=== PATIENT | male | born 1955 | race Caucasian/White ===

== ENCOUNTER 2020-07-21 14:40 | Outpatient (CLI) | payer OTHER, SELFPAY ==
--- NOTE | 2020-07-21 17:13 | P.PCNPFT_ITS ---
PFT Interpretation This is a pulmonary function test with pre and post-bronchodilator spirometry, plethysmography and diffusing capacity. The test was performed and results interpreted in accordance with the 2019 and 2005 ATS/ERS Task Force guidelines respectively using the Global Lung Function Initiative-2012 reference equations. Patient demonstrated good effort and c ooperation. Reproducibility criteria were met. The quality of the pre bronchodilator spirometry maneuver was Grade A and post bronchodilator spirometry maneuver was Grade A. Patient had difficulty with shortness of breath throughout all testing. Only 1 acceptable DLCO and plethysmography trial were completed. Findings: Spirometry: The there is decreased maximal expiratory airflow at all lung volumes with concave expiratory flow tracing. The contour the inspiratory flow tracing is normal. The pre bronchodilator FVC is 2.35 L, 51% predicted. The pre bronchodilator FEV1 is 0.73 L, 21% predicted. The FEV1: FVC ratio is 31%. The post bronchodilator FVC is 2.68 L, representing a 14% increase. The post bronchodilator FEV1 is 0.80 L, representing a 10% increase. Plethysmography: The total lung capacity is 8.63 L, 120% predicted. The functional residual capacity is 7.62 L, 202% predicted. The residual volume is 5.97 L, 252% predicted. Diffusing capacity: The absolute diffusion capacity is 6.4, 23% predicted. Diffusing capacity corrected for alveolar volume is 1.90, 47% predicted. Impression: There is a very severe obstructive abnormality with significant improvement after inhaling a single dose of albuterol. The increase in residual volume is consistent with air trapping from an obstructive abnormality. Hyperinflation is present is demonstrated by the increase in functional residual capacity and is consistent with an obstructive abnormality. The absolute diffusing capacity is severely decreased and remains moderately decreased when corrected for alveolar volume. There are no prior studies for comparison PFT Procedure Performed PFT Procedure Performed Spirometry with Pre/Post Bronchodilator Plethysmography (Lung Vol) Diffusing Cap (DLCO)
== END 2020-07-21 14:41 | disposition home or self-care (01) ==
LOC: ANHPFT 14:42
PROVIDERS: PCP Family Medicine; Visit Provider Family Medicine
DX: J44.9 Chronic obstructive pulmonary disease, unspecified (principal); R94.2 Abnormal results of pulmonary function studies
CPT/HCPCS: 94060; 94726; 94729

== ENCOUNTER 2020-10-30 17:51 | Inpatient (IN) | payer OTHER, SELFPAY ==
[2020-10-30] VITALS (36 sets, daily range): BP systolic 102–143; BP diastolic 77–101; PULSE 80–113; RESP 14–34; TEMP 37.2; O2SAT 80–100
--- NOTE | ~2020-10-30 | XR_ITS ---
XR chest 1V portable 11/01/2020 05:54 Indication: Pneumothorax. Procedure: AP portable chest Comparison: Comparison to multiple prior studies sequentially, with oldest reviewed study dated 10/30. Findings: There is a right apical chest tube. Small right apical pneumothorax medially. There is emph ysema. There are infiltrates of the left mid and bilateral lower lung zones. Heart size normal. There is atherosclerosis. Impression: 1: Right apical chest tube with small residual right apical pneumothorax medially. 2: Patchy bilateral airspace disease, consistent with pneumonia versus edema. Reviewed, dictated and finalized at location A. Impression: 1: Right apical chest tube with small residual right apical pneumothorax medial ly. 2: Patchy bilateral airspace disease, consistent with pneumonia versus edema.
--- NOTE | ~2020-10-30 | XR_ITS ---
EXAMINATION: XR chest 1V portable DATE: 10/31/2020 16:04 INDICATION: Status post bronchoscopy TECHNIQUE: frontal view of the chest was obtained. COMPARISON: Chest CT dated 10/30/2020 FINDINGS: Oval development of a large right pneumothorax with near complete collapse of the right lung. The rig ht upper lobe remains tethered to the right apex likely due to pleural-parenchymal scarring. There is no midline shift or depression of the right hemidiaphragm to suggest tension pneumothorax. Hyperexpa nsion of the left lung with increased peripheral lucency and architectural distortion consistent with severe emphysema. Heart size is normal. No pleural effusion or left-sided pneumothorax. There is gas eous distention of the stomach along with multiple gas-filled loops of bowel in the upper abdomen inc luding a mildly dilated loop of small bowel in the right upper quadrant. IMPRESSION: 1. Large right pneumothorax but without evident tension. Findings were discussed with Vickie Ogden, the nurse caring for the patient, at 4:24 PM. 2. Emphysema. 3. Dilated gas-filled loop of small bowel in the right upper quadrant which could be due to ileus, ob struction or potentially gaseous distention due to bag mask ventilation in the appropriate clinical s etting. Reviewed, dictated and finalized at location A. IMPRESSION: 1. Large right pneumothorax but without evident tension. Findings were discusse d with Vickie Ogden, the nurse caring for the patient, at 4:24 PM. 2. Emphysema. 3. Dilated gas-filled loop of small bowel in the right upper quadrant which cou ld be due to ileus, obstruction or potentially gaseous distention due to bag ma sk ventilation in the appropriate clinical setting.
--- NOTE | ~2020-10-30 | XR_ITS ---
XR chest 1V portable 11/02/2020 14:02 Indication: Pneumothorax follow-up Procedure: AP portable chest Comparison: Comparison to multiple prior studies sequentially, with oldest reviewed study dated 10/31. Findings: There is a right apical chest tube, position unchanged. No pneumothorax identified. There a re emphysematous changes. There are bibasilar infiltrates which may represent a combination of atelec tasis/scarring and/or pneumonia. Small left pleural effusion versus pleural thickening. No acute osse ous abnormality. Impression: 1: Stable bibasilar infiltrates, differential diagnosis includes atelectasis/scarring and/or pneumoni a. 2: Stable position to right apical chest tube. No pneumothorax. 3: Emphysema. Reviewed, dictated and finalized at location A. Impression: 1: Stable bibasilar infiltrates, differential diagnosis includes atelectasis/sc arring and/or pneumonia. 2: Stable position to right apical chest tube. No pneumothorax. 3: Emphysema.
--- NOTE | ~2020-10-30 | XR_ITS ---
EXAMINATION: XR chest-chest tube insert/pos INDICATION: Chest tube insertion TECHNIQUE: Portable AP chest at 1723 hours COMPARISON: 1554 hours FINDINGS: A right-sided chest tube has been inserted. The previously described right pneumothorax is no longer evident. There is severe emphysema. Minimal airspace opacities are present in the lung base s. The heart size is normal. There is no pleural effusion. IMPRESSION: 1. Right-sided chest tube insertion with interval resolution of the previously described right pneumo thorax. 2. Severe emphysema. 3. Bibasilar airspace opacities, consistent with atelectasis versus pneumonia. Reviewed, dictated and finalized at location A. IMPRESSION: 1. Right-sided chest tube insertion with interval resolution of the previously described right pneumothorax. 2. Severe emphysema. 3. Bibasilar airspace opacities, consistent with atelectasis versus pneumonia.
--- NOTE | ~2020-10-30 | XR_ITS ---
EXAMINATION: XR barium swallow DATE: 10/30/2020 23:22 INDICATION: Dysphagia, concern for impacted food bolus TECHNIQUE: 4 cc of thick barium were administered orally via syringe. Fluoroscopy of the hypopharynx and esophagus was performed. Fluoroscopy exposure time was 1.1 minutes. The DAP for this procedure wa s 0.762 Gycm2. COMPARISON: None. FINDINGS: Contrast pools in the vallecula and proximal esophagus. Patient took multiple dry swallows without enhancement of the contrast bolus. Examination was terminated due to overall respiratory dist ress of the patient and concern for aspiration. IMPRESSION: 1. Examination nondiagnostic for assessment of impacted food bolus. Reviewed, dictated and finalized at location A.
--- NOTE | ~2020-10-30 | XR_ITS ---
EXAMINATION: XR chest 1V portable INDICATION: Shortness of breath TECHNIQUE: Portable AP chest at 1807 hours COMPARISON: None available FINDINGS: There is severe emphysema, particularly in the upper lung zones. No acute airspace opacitie s are identified. There is a questionable nodule of the right midlung zone. The cardiomediastinal jerardo houette is normal. The visualized osseous structures are unremarkable. IMPRESSION: 1. Severe emphysema. 2. Nodular opacity of the right midlung zone which could be infectious/inflammatory or malignant. Fol low-up with nonemergent CT of the chest is recommended. Reviewed, dictated and finalized at location A. IMPRESSION: 1. Severe emphysema. 2. Nodular opacity of the right midlung zone which could be infectious/inflamma tory or malignant. Follow-up with nonemergent CT of the chest is recommended.
--- NOTE | ~2020-10-30 | XR_ITS ---
XR chest 1V portable 11/02/2020 05:28 Indication: Right pneumothorax. Dyspnea. Procedure: AP portable chest Comparison: Comparison to multiple prior studies sequentially, with oldest reviewed study dated 10/30. Findings: Stable position of right apical chest tube. No definite pneumothorax identified. Emphysemat ous changes are present with persistent bibasilar infiltrates which may represent pneumonia or edema. Cardiomegaly. Impression: 1: Persistent bilateral infiltrates primarily involving the lung bases. These findings have progresse d since 10/30/2020. Differential diagnosis includes pneumonia and edema. Reviewed, dictated and finalized at location A. Impression: 1: Persistent bilateral infiltrates primarily involving the lung bases. These f indings have progressed since 10/30/2020. Differential diagnosis includes pneumo jaden and edema.
--- NOTE | ~2020-10-30 | CT_ITS ---
EXAMINATION: CT soft tissue neck chest wo EXAM DATE: 10/31/2020 08:14 INDICATION: Respiratory distress, possible impacted food. TECHNIQUE: Spiral CT of the neck and chest was performed without contrast. Axial, coronal and sagit lloyd images of the neck were reviewed. Axial, coronal and sagittal images of the chest were reviewed. Coronal maximum intensity pixel images of chest reviewed. The dose-length product (DLP) for this e xamination was 744.01 mGy-cm. The exposure was tailored according to patient size (auto mA exposure control), and iterative reconstruction (ASIR) was used as additional dose [id number] technique. Ther e is no prior study for comparison. FINDINGS: NECK: There is focal region of esophageal dilation and surrounding esophageal wall edema, could be i mpacted food measuring 2.5 x 2.0 x 3.0 cm. This is at the thoracic inlet level. The thyroid gland is unremarkable. The submandibular and parotid glands are symmetric. There is no cervical lymphaden opathy. There are no masses identified. The airway is unremarkable. Parapharyngeal and pre-glot tic fat planes are preserved. Limited evaluation of cervical vessels on this noncontrast study. T he orbits are unremarkable. Some chronic sphenoid sinus mucoperiosteal thickening and wall thickeni ng. There is cervical spondylosis. CHEST: There is approximately 4 cm opacity in the right middle lobe, appearance consistent with pneu monia. Follow-up to resolution is indicated to exclude cancer. There is severe emphysema, and right-s ided predominant bullous disease. Lungs are hyperinflated. There is debris in the right lower lobe in tralobar bronchus extending into the segmental bronchi. There are no pleural or pericardial effusion s. There is no mediastinal, hilar or axillary lymphadenopathy. There is no pneumothorax. Heart normal in size. There is mild to moderate coronary arterial calcification, arterial sclerosis. Th ere is cholelithiasis. Multiple thoracic mild to moderate compression fractures which appear chronic . IMPRESSION: 1. Esophageal foreign body probably impacted food at the thoracic inlet level. 2. Right lower lobe endobronchial aspiration/debris. 3. Right middle lobe pneumonia. Follow-up to resolution is indicated to exclude cancer. 4. Severe emphysema. Bullous disease. Reviewed, dictated and finalized at location B. IMPRESSION: 1. Esophageal foreign body probably impacted food at the thoracic inlet level. 2. Right lower lobe endobronchial aspiration/debris. 3. Right middle lobe pneumonia. Follow-up to resolution is indicated to exclud e cancer. 4. Severe emphysema. Bullous disease.
--- NOTE | ~2020-10-30 | XR_ITS ---
XR chest 1V portable 11/03/2020 05:35 Indication: Right pneumothorax follow-up Procedure: AP portable chest Comparison: Comparison to multiple prior studies sequentially, with oldest reviewed study dated 10/31. Findings: Stable position to right apical chest tube. Small right pneumothorax identified. Progressio n of bibasilar airspace disease. There is hyperinflation, consistent with emphysema. Heart size esteban l. There is atherosclerosis. No acute osseous abnormality. Impression: 1: Small right pneumothorax with stable position to right apical chest tube. 2: Progression of predominantly bibasilar airspace disease which may represent pneumonia or edema. Reviewed, dictated and finalized at location A. Impression: 1: Small right pneumothorax with stable position to right apical chest tube. 2: Progression of predominantly bibasilar airspace disease which may represent pneumonia or edema.
--- NOTE | ~2020-10-30 | US_ITS ---
EXAMINATION: US venous doppler LE EXAM DATE: 11/01/2020 08:35 INDICATION: Bilateral leg swelling. TECHNIQUE: Multiple grayscale, color flow and Doppler images of the lower extremity deep venous syste ms bilaterally were obtained and reviewed. There is no prior study for comparison. FINDINGS: Right side: The right common femoral, femoral and profunda veins demonstrate normal color flow, respi ratory variation, augmentation and compressibility. Compressibility, color flow confirmed within the right popliteal, posterior tibial, peroneal, and greater saphenous veins. Left side: The left common femoral, femoral and profunda veins demonstrate normal color flow, respira tory variation, augmentation and compressibility. Compressibility, color flow confirmed within the l eft popliteal, posterior tibial, peroneal, and greater saphenous veins. IMPRESSION: 1. No lower extremity deep venous thrombosis bilaterally. Reviewed, dictated and finalized at location B.
--- NOTE | 2020-10-30 17:53 | ECG_ITS ---
Measurements Intervals [place] Rate: 95 P: 81 [place]: 163 QRS: -62 QRSD: 97 T: 95 QT: 335 QTc: 421 Interpretive Statements SINUS RHYTH FREQUENT ATRIAL PREMATURE COMPLEXES POSSIBLE LEFT ATRIAL ENLARGEMENT INCOMPLETE RIGHT BUNDLE BRANCH BLOCK INFERIOR INFARCT, AGE INDETERMINATE BORDERLINE ST-T WAVE ABNORMALITY- ANTEROLAT/HIGH LAT LEADS BASELINE ARTIFACT- I, III, AVR, AVL, V6 ABNORMAL ECG Electronically Signed On 10-30-2020 20:45:14 CDT by Gordon Rosado D.O.
[2020-10-30] MEDS: FUROSEMIDE INJ 100 MG/10 ML VIAL 80 MG IV PUSH (17:58)
[2020-10-30] MEDS: NITROGLYCERIN OINTMENT 1 INCH DOSE TRANSDERM (17:58)
[2020-10-30 18:20] LABS: Basophils Absolute Auto 0.1 K/mm3 (0.0-0.1); Basophils Percent Auto 0.5 % (0.2-1.2); Eosinophils Percent Auto 0.4 % (0-4.4); Hematocrit 48.8 % (42.0-52.0); Hemoglobin 16.2 g/dL (14.0-18.0); Immature Granulocyte Absolute 0.03 K/mm3 (0.00-0.031); Immature Granulocyte Percent A 0.3 % (0-0.5); Lymphocytes Absolute Auto 1.59 K/mm3 (0.9-3.2); Lymphocytes Percent Auto 17.3 % (18.3-44.2); Mean Corpuscular HGB Conc 33.2 g/dl (32-36); Mean Corpuscular Hemoglobin 34.2 pg (26-34); Mean Platelet Volume 8.9 fl (7.4-10.4); Monocytes Percent Auto 10.3 % (2.6-8.5); Neutrophils Absolute Auto 6.6 K/mm3 (1.3-6.7); Neutrophils Percent Auto 71.2 % (45.5-73.1); Platelet Count Result 288 k/mm3 (150-375); Red Blood Count 4.74 M/mm3 (4.6-6.20); Red Cell Distribution Width 13.7 % (11.5-14.5); White Blood Count 9.2 K/mm3 (4.5-10.0)
[2020-10-30 18:29] LABS: Prothrombin Time 12.8 Seconds (11.1-14.7)
[2020-10-30 18:30] LABS: Anion Gap 8 mmol/L (8-16); Blood Urea Nitrogen 26 mg/dL (9-20); Calcium 9.4 mg/dL (8.4-10.2); Carbon Dioxide 25 mmol/L (22-30); Chloride 102 mmol/L (98-107); Estimated CRCL calculation 70 ml/min; Estimated Glomerular Filt Rate > 60; Glucose 123 mg/dL (65-110); Partial Thromboplastin Time 27.5 SECONDS (22.3-36.8); Sodium 135 mmol/L (137-145)
[2020-10-30 18:41] LABS: NT Pro B Type Natriuretic Pept 1290 pg/mL (5-100); Troponin I < 0.012 ng/mL (0.000-0.034)
--- NOTE | 2020-10-30 19:07 | PC.NURSE ---
Patient's blood pressure 106/86, nitro patch removed per EDFarideh Martinez
--- NOTE | 2020-10-30 19:26 | ED.SOB ---
HPI - SOB/Dyspnea General Chief Complaint: Shortness of Breath/Dyspnea Stated Complaint: RESPIRATORY FAILURE History of Present Illness HPI Narrative: Patient is a 65-year-old male with known history of COPD who presents ER in severe respiratory distress. Patient foaming of the mouth and found to be hypoxic for EMS. They attempted to give an inline nebulizer treatment in route. Patient reports symptoms were sudden onset. No history of heart failure. He has had edema building up in his legs for a long time. Denies recent history of orthopnea. Patient cannot describe any alleviating factors at this time. Related Data Home Medications Medication Instructions Recorded Confirmed aspirin 325 mg PO DAILY 03/01/19 06/07/20 Allergies Allergy/AdvReac Type Severity Reaction Status Date / Time No Known Allergies Allergy Verified 10/30/20 17:59 Review of Systems Review of Systems: All systems reviewed & are unremarkable except as noted in HPI and below Constitutional: Constitutional: Denies chills, Denies fever(s) and Denies weakness Cardiovascular: Cardiovascular: Denies chest pain and Denies radiating jaw, neck or arm pain Respiratory: Respiratory: Reports chest congestion, Denies cough, Reports dyspnea and Denies wheezing Gastrointestinal: Gastrointestinal: Denies abdominal pain, Denies nausea and Denies vomiting PMFSH Past Medical History Medical History Adenomatous colon polyp COPD (chronic obstructive pulmonary disease) History of TIA (transient ischemic attack) HTN (hypertension) Intention tremor Occlusion of left internal carotid artery PUD (peptic ulcer disease) TIA (transient ischemic attack) 2013 Surgical History Surgical History History of tonsillectomy Family History Family History Other Carcinoma of colon Hypertension Social History Social History Smoking packs per day: 1 Smoking cigarettes per day: 20.0 Years smoked: 45 Smoking pack-years: 45.00 Smoking status: Current every day smoker Tobacco type: cigarettes Alcohol intake: current Substance use: never Substance use type: does not use Gender identity (if verbalized by the patient): Male Exam Narrative: Exam Narrative: GENERAL: Ill-appearing, well-nourished, and in severe distress. HEAD: Normocephalic, atraumatic. EYES: PERRL and EOMI. ENT: Mucous membranes moist. White foam coming from mouth. CHEST: Rales bilaterally. Severe respiratory distress. HEART: Tachycardic and regular. Normal peripheral pulses. ABDOMEN: Soft, nontender, nondistended. EXTREMITIES: Normal range of motion. 2+ edema. SKIN: Warm, dry, no rash. NEURO: Alert and oriented x3. PSYCH: Normal mood and affect. Course Course Emergency Course: Admit to hospitalist service. Much more comfortable on BiPAP. Patient continues to have foaming discomfort when he is attempted to be weaned off of BiPAP. Patient reports he is eating some pork steak when symptoms began and feels like he is having trouble swallowing. He is gone for a x-ray with barium to evaluate for swallowing but this was nondiagnostic as patient was in respiratory distress after being laid down could not tolerate it. As recommend by radiology he has a repeat exam tomorrow for further evaluation if it is still an issue. Vital Signs Vital signs: Vital Signs Pulse Oximetry 80 L 10/30/20 17:50 Temperature 98.9 F 10/30/20 17:53 Pulse Rate 88 10/30/20 23:22 Respiratory Rate 21 H 10/30/20 23:22 Blood Pressure 125/77 10/30/20 21:34 Pulse Oximetry 100 10/30/20 23:22 MDM - SOB/Dyspnea Lab Data Result diagrams: 10/30/20 18:12 10/30/20 18:12 Labs: Lab Results 10/30/20 10/30/20 10/30/20 Range/Units 18:
--- NOTE | 2020-10-30 19:56 | PC.NURSE ---
Dr Downs at bedside. Patient awake, oriented. Per Dr Downs, OK to have trial without bipap. Start on 10 liters NC. Respiratory called to assist
--- NOTE | 2020-10-30 20:21 | PM.IMHP ---
H&P: HPI History of Present Illness Date/Time: 10/30/20 20:21 Chief Complaint: shortness of breath Narrative: This is a 65-year-old male with past medical history significant for severe chronic obstructive pulmonary disease/emphysema, hypertension, peptic ulcer disease, he smokes 1 pack a day of cigarettes. he presented to the emergency room after he had an episode of choking with food he became severely distress and EMS was called there was no loss of consciousness patient was able to release the foreign body on its own however this triggered a severe respiratory distress with severe shortness of breath. Patient was rushed to the emergency room via EMS upon arrival to emergency room patient had foaming at the mouth require BiPAP on Lasix IV push. At the time of my visit patient was on BiPAP and he denied any issues at that moment wanted of of BiPAP. prior to these events patient is states that has been having worsening bilateral lower extremity edema now ongoing for several months at least a month his says he has been able to lay flat in the bed. Denies any chest pain denies changes in sputum quality he has a productive cough mainly in the morning upon awakening with production of scanty amount of phlegm. He denies any fevers rigors chills nausea vomiting diarrhea PND orthopnea. CHEST X-RAY WAS SIGNIFICANT FOR EMPHYSEMA AND A LUNG NODULE. A BNP WAS 1290. Review of Systems Review of Systems: Narrative: SHORTNESS OF BREATH BILATERAL LOWER EXTREMITY SWELLING Constitutional: Constitutional: Denies chills, Denies fever(s), Denies lethargy, Denies malaise and Denies weakness Eyes: Eyes: Denies change in vision ENT: Denies dysphagia, Denies nasal congestion, Denies nasal discharge, Denies odynophagia and Denies sore throat Cardiovascular: Cardiovascular: Denies irregular heart rhythm, Reports leg edema, Denies lightheadedness, Denies radiating jaw, neck or arm pain, Denies palpitations, Denies dyspnea, Denies dyspnea on exertion, Denies orthopnea and Denies paroxysmal nocturnal dyspnea Respiratory: Respiratory: Denies change in phlegm color, Reports cough and Reports dyspnea Gastrointestinal: Gastrointestinal: Denies abdominal pain, Denies dyspepsia, Denies diarrhea, Denies nausea and Denies vomiting Genitourinary: Genitourinary: Reports no additional male genitourinary complaints Musculoskeletal: Musculoskeletal: Reports no additional musculoskeletal complaints Integumentary/Breasts: Skin/Breast: Reports system reviewed and no additional complaints, except as docu Neurologic: Reports system reviewed and no additional complaints, except as documented Psychiatric: Psychiatric: Reports no additional psychiatric complaints Endocrine: Endocrine: Reports no additional endocrine complaints Hematologic/Lymphatic: Hematologic/Lymphatic: Reports no additional hematologic/lymphatic complaints Allergic/Immunologic: Allergic/Immunologic: Reports no additional allergic/immunologic complaints [facility] Past Medical History Medical History Adenomatous colon polyp COPD (chronic obstructive pulmonary disease) History of TIA (transient ischemic attack) HTN (hypertension) Intention tremor Occlusion of left internal carotid artery PUD (peptic ulcer disease) TIA (transient ischemic attack) 2013 Surgical History Surgical History History of tonsillectomy Family History Family History Other Carcinoma of colon Hypertension Social History Social History Smoking packs per day: 1 Smoking cigarettes per day: 20.0 Years smoked: 45 Smoking pack-years: 45.00 Smoking status: Current every day smoker Tobacco type: cigarettes Alcohol intake: current Substance use: never Substance use type: does not use Gender
--- NOTE | 2020-10-30 20:39 | PC.NURSE ---
Pt coughing and having more secretions. Dr Riggs at bedside. O2 97% on 10 liters high flow nasal cannula. Called Respiratory to restart Bipap. Per Dr Riggs, patient has failed trial being off bipap.
--- NOTE | 2020-10-30 21:35 | PC.NURSE ---
Pt called out stating patient feeling like he was choking. Bipap paused. Pt suctioned orally. Reported relief. O2 saturation 99%
[2020-10-30] MEDS: hydrALAZINE HCL 50 MG TABLET PO (22:25)
--- NOTE | 2020-10-30 22:30 | PC.NURSE ---
Pt coughing, froth restarted after taking PO hydralazine. Dr Riggs at bedside. Bipap restarted. SpO2 97%
--- NOTE | 2020-10-30 23:11 | PC.NURSE ---
Pt off floor for barium swallow. Respiratory with patient to study
[2020-10-31] VITALS (29 sets, daily range): BP systolic 114–148; BP diastolic 57–101; PULSE 82–138; RESP 12–31; TEMP 36.2–37.5; O2SAT 89–100; BMI 19.8
[2020-10-31] MEDS: FUROSEMIDE INJ 40 MG/4 ML VIAL IV PUSH ×2 (01:06→21:24)
--- NOTE | 2020-10-31 01:11 | PC.NURSE ---
SBAR faxed to IMU department. Report called at [phone] by GUY Ornelas. All questions answered and plan of care reviewed. Patient to go to IMU room 212.
--- NOTE | 2020-10-31 01:12 | ADMGEN ---
This patient, Chano Dubose, was admitted to IMU Room 212-01 at 0007 from the Emergency Department. Patient/family oriented to hospital policies and general routines including ID bracelet, bed and alarms, visiting hours, pain management, procedures, bathroom and other care routines, personal items, smoking policy, room service/diet, and visiting hours. Information on how to activate the Rapid Response Team has been discussed. Patient/Family are encouraged to report perceived risks to care and to ask questions if they do not understand what they are told or what they should do.
--- NOTE | 2020-10-31 01:12 | PC.NURSE ---
Patient arrived to the floor on continuous Bipap 16/8 Rate of 10 50% FiO2.
[2020-10-31 01:17] LABS: Alveolar/Arterial O2 Gradient 153.8 mmHg; Base Excess ABG -0.8 mEq/l (+/-2.0); Carboxyhemoglobin 1.4 % THb (0-2.0); Fractional Inspired Oxygen 50 %; HCO3 ABG 23.4 mEq/l (22.0-26.0); Methemoglobin ABG 0.3 %THb (0-1.5); Oxygen Content ABG 21.8 %vol (16.0-22.0); Oxygen Saturation ABG 99.1 % (95.0-100.0); Oxyhemoglobin 96.8 % THb (90.0-100.0); PCO2 ABG 37.7 mmHg (35.0-45.0); PO2 ABG 160.3 mmHg (80.0-100.0); PO2 FiO2 Ratio Arterial Blood 3.21 %; Reduced Hemoglobin 1.5 %THb (0-5.0); Total Hemoglobin 15.8 g/dL (12.0-18.0); pH ABG 7.411 (7.350-7.450)
[2020-10-31 01:18] LABS: Device NON-INVASIVE VENT; Modified Allen's Test Pass; Site Drawn RIGHT RADIAL
[2020-10-31 01:20] LABS: Non-Invasive Expiratory Pressure 8 CMH2O; Non-Invasive Inspiratory Pressure 16 CMH2O; Non-Invasive Vent Rate 10 /MIN
--- NOTE | 2020-10-31 02:09 | PC.NURSE ---
Addendum entered by Yasmin Escobar RN 10/31/20 02:23: Patient states he still feels like there is more pork steak stuck in his airway. MD Dr. Downs made aware of event. Original Note: Called into patients room at 0150 patient anxious and gargling on copious amounts of frothy white secretions. patient insistent I remove the bipap. While removing the bipap, patient coughed up a piece of pork steak the size of a quarter. Bipap removed. Patient stated he aspirated some of his pork steak this evening before coming to the ED.
[2020-10-31 02:47] LABS: Troponin I 0.027 ng/mL (0.000-0.034)
--- NOTE | 2020-10-31 08:00 | PM.CNPUL ---
Assessment and Plan Assessment and plan (1) Aspiration of food: Code(s): T17.920A - Food in respiratory tract, part unspecified causing asphyxiation, initial encounter Status: Acute Assessment and Plan: Patient with a history of COPD was in his usual state of health when he choked on food developing respiratory distress afterwards. Patient has an esophageal obstruction and also debris in his right lower lobe. The plan is to perform an emergent EGD per the GI team followed by a bronchoscopy by myself to assess the airways for aspirated food. Currently patient is in no respiratory distress as long as he applies frequent Yankauer suctioning to his mouth. Prior to this choking event he had no evidence of a COPD exacerbation. After the bronchoscopy I will initiate albuterol and ipratroprium nebulizers. At this time I do not think he needs inhaled or systemic steroids. There is evidence of focal infiltrate in the right middle lobe and the patient is currently on Zosyn. Patient states that he does not use oxygen at home and currently he is on 3 L nasal cannula with saturations of 92%. Goal saturation 90-94. Discussed with hospitalist, GI, and endoscopy coordinator. Will follow with you. History of Present Illness History of Present Illness Consult date: 10/31/20 Chief complaint: acute respiratory failure, chf exacerbation Narrative: this is a new Pulmonary consultation for COPD with hypoxemic respiratory failure 65-year-old male with a history of hypertension, TIA, peptic ulcer disease, left internal carotid artery occlusion in 06/26/2012 with tobacco use and GOLD grade 4 group B COPD with FEV1 of 0.73 L (21% predicted), airtrapping (RV 252% predicted), hyperinflation (FRC 202% predicted), DLCO (23% predicted) was in his usual state of health until 10/30 at 17:00he ate pork steak and choked on this. Prior to this event he denies fever, chills, rigors, phlegm production, hemoptysis, chest pain or change in his chronic dyspnea on exertion. With the choking patient had hypoxemia, dizziness and respiratory distress. EMS was called and he was foaming at the mouth in respiratory distress. He arrived to the emergency department and was placed on BiPAP and given Lasix. Patient's white blood cell count was 9.2, Serum bicarbonate was 25, troponins were negative x2, BNP was 12 90, an ABG on BiPAP was 7.141/38/160 on BiPAP 16/8 and 50%. chest x-ray demonstrated severe emphysema, nodular opacity in the right mid lung zone. Patient was admitted to the floor on BiPAP. 10/[address] scan of the neck and chest demonstrating esophageal dilatation and possible impacted food at the thoracic inlet. No lymphadenopathy. There is severe panlobular emphysema, 4 cm opacity right middle lobe, debris in RLL. Upon entering the room the patient was in respiratory distress foaming at the mouth with gurgling respiratory sounds. I immediately suctioned his mouth with a Yankauer and applied constant Yankauer suctioning for 5 minutes and he improved. He was on 10 L nasal cannula oxygen with saturations 96. I was able to wean him down to 3 L nasal cannula oxygen with saturations 92%. Baseline: Patient smoked a pack and half of cigarettes from age 15 to current for total of 75 pack years. 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 Patient denies same blasting, vaping, illicit drug use. Patient states that his dyspnea on exertion is at 2 blocks. He has had no hospitalizations or exacerbations in the last year. DATA: EXAMINATION: CT soft tissue neck chest wo EXAM DATE: 10/31/2020 08:14 INDICATION: Respiratory distress, possible impacted food. TECHNIQUE: Spiral CT of the neck and chest was performed without contrast. Axial, coronal and sagittal images of the neck were reviewed. Axial, coronal and sagittal images of the chest were reviewed. Co
--- NOTE | 2020-10-31 09:29 | PC.NURSE ---
Spoke with patients , Fe at 0925. Patients stated that patient had copious amounts of frothy/ foaming secretions initially after patient aspirated his pork-steak at home. states that patient has also had a significant increase in lower extremity edema in the last month that is new.
--- NOTE | 2020-10-31 11:32 | WPDANESEPPF ---
Anes - Initial Pre Proc Eval Procedure: Operation Date: 10/31/20 13:00 Proposed Procedures p Esophagogastroduodenoscopy - Bobby Mcdowell MD s Flexible Bronchoscopy - Gustavo Polk MD Date/Time: 10/31/20 11:32 Surgeon: Jaguar Downs MD Pre Op Diagnosis: acute respiratory failure, chf exacerbation Patient Data Age: 65 Gender: M Height: 1.8 m Weight: 64.5 kg Last Vital Signs Temp 37.1 C 10/31/20 08:00 Pulse 106 H 10/31/20 08:00 Resp 30 H 10/31/20 08:00 BP 147/87 H 10/31/20 08:00 Pulse Ox 92 10/31/20 08:00 Allergies Allergy/AdvReac Type Severity Reaction Status Date / Time No Known Allergies Allergy Verified 10/30/20 17:59 Home Medications Medication Instructions Recorded Confirmed Type aspirin 325 mg PO DAILY 03/01/19 10/31/20 History amlodipine 5 mg tablet See Rx Instructions .ROUTE 06/07/20 10/31/20 Rx .COMPLEX #90 tablet hydralazine 50 mg tablet See Rx Instructions .ROUTE 06/07/20 10/31/20 Rx .COMPLEX #270 tablet metoprolol succinate 50 mg See Rx Instructions .ROUTE 06/07/20 10/31/20 Rx tablet,extended release 24 hr .COMPLEX #90 tablet albuterol sulfate 90 mcg/actuation 2 inh INHALATION Q4H PRN #8.5 g 07/25/20 10/31/20 Rx aerosol inhaler losartan 100 mg tablet 100 mg PO DAILY #90 tablet 09/05/20 10/31/20 Rx fluticasone furoate 200 1 inh INHALATION DAILY #90 ea 09/20/20 10/31/20 Rx mcg-vilanterol 25 mcg/dose inhalation powder Laboratory Tests 10/30/20 10/30/20 10/30/20 18:12 18:12 18:12 WBC 9.2 K/mm3 K/mm3 (4.5-10.0) RBC 4.74 M/mm3 M/mm3 (4.6-6.20) Hgb 16.2 g/dL g/dL (14.0-18.0) Hct 48.8 % % (42.0-52.0) MCV 103.0 fl H fl (80-100) MCH 34.2 pg H pg (26-34) MCHC 33.2 g/dl g/dl (32-36) RDW 13.7 % % (11.5-14.5) Plt Count 288 k/mm3 k/mm3 (150-375) MPV 8.9 fl fl (7.4-10.4) Immature Gran % (Auto) 0.3 % % (0-0.5) Neut % (Auto) 71.2 % % (45.5-73.1) Lymph % (Auto) 17.3 % L % (18.3-44.2) [place] % (Auto) 10.3 % H % (2.6-8.5) Eos % (Auto) 0.4 % % (0-4.4) Baso % (Auto) 0.5 % % (0.2-1.2) Lymph # (Auto) 1.59 K/mm3 K/mm3 (0.9-3.2) [place] # (Auto) 1.0 K/mm3 H K/mm3 (0.1-0.6) Eos # (Auto) 0.0 K/mm3 K/mm3 (0-0.3) Baso # (Auto) 0.1 K/mm3 K/mm3 (0.0-0.1) Abs Immat Gran (auto) 0.03 K/mm3 K/mm3 (0.00-0.031) Absolute Neuts (auto) 6.6 K/mm3 K/mm3 (1.3-6.7) Absolute Nucleated RBC 0.0 K/mm3 K/mm3 (0.0-0.012) Nucleated RBC % 0.0 % % (0.0-0.2) PT 12.8 Seconds Seconds (11.1-14.7) INR 1.0 APTT 27.5 SECONDS SECONDS (22.3-36.8) Puncture Site ABG pH ABG pCO2 ABG pO2 ABG PO2/FiO2 Ratio ABG HCO3 ABG O2 Saturation ABG O2 Content ABG Base Excess A-a Gradient Oxyhemoglobin Carboxyhemoglobin Methemoglobin Reduced Hemoglobin Total Hemoglobin O2 Delivery Device O2 Liters/Min Vent Rate FiO2 Expiratory Pressure Inspiratory Pressure Sodium 135 mmol/L L mmol/L (137-145) Potassium 5.0 mmol/L mmol/L (3.4-5.0) Chloride 102 mmol/L mmol/L (98-107) Carbon Dioxide 25 mmol/L mmol/L (22-30) Anion Gap 8 mmol/L mmol/L (8-16) BUN 26 mg/dL H mg/dL (9-20) Creatinine 0.90 mg/dL mg/dL (0.7-1.3) Estim Creat Clear Calc 70 ml/min ml/min Estimated GFR > 60 (59 - ) Glucose 123 mg/dL H mg/dL (65-110) Calcium 9.4 mg/dL mg/dL (8.4-10.2) Troponin I < 0.012 ng/mL ng/mL (0.000-0.034) NT-Pro-B Natriuret Pep
[2020-10-31] MEDS: LACTATED RINGERS 1,000 ML 150 ML IV CONT ×2 (12:07→15:04)
--- NOTE | 2020-10-31 13:20 | WPDGICN ---
Assessment and Plan Assessment and plan (1) Dysphagia: Code(s): R13.10 - Dysphagia, unspecified Status: Acute Assessment and Plan: he will have EGD this morning with removal of foreign body. I explained to him that removing the foreign body can be difficult. Frequently we can advance it into the stomach. Often we need to remove it piece meal by repeatedly inserting the endoscope. if there is a stricture which is very likely we may or may not dilated depending on how much inflammation we see . Doing that also can result in perforation or bleeding. (2) COPD (chronic obstructive pulmonary disease): Qualifiers: COPD type: unspecified COPD Qualified Code(s): J44.9 - Chronic obstructive pulmonary disease, unspecified Code(s): J44.9 - Chronic obstructive pulmonary disease, unspecified Status: Acute Assessment and Plan: he will be intubated prior to the procedure for safety to avoid aspiration. The patient and his family understand that because of his severe COPD he may not be able to get extubated immediately and could be respiratory dependent for a while. Dr. Polk plans to do a bronchoscopy immediately after our EGD. GI Consult Note Consult date/time: 10/31/20 13:20 HPI: Chano Dubose is a 65 year old male Who is known to have severe COPD hypertension and nicotine abuse. He was admitted thru the emergency room because he was eating a piece of pork steak and seem to choke on it. He also states that he could not swallow after that, and has been unable to swallow even his own saliva since that. He could not breathe at 1st . he apparently was able to cough some upper has been short of breath since then and was brought to emergency room. He has been placed on BiPAP. a CT scan of the chest was done. I reviewed it this morning with Dr. Polk and it seems to show a foreign body in the esophagus. He denies having had difficulty swallowing in the past. He denies chronic heartburn. He has lost about 20 lb in last year or 2 Review of Systems Review of Systems: All systems reviewed & are unremarkable except as noted in HPI and below PMFSH Past Medical History Medical History Adenomatous colon polyp COPD (chronic obstructive pulmonary disease) History of TIA (transient ischemic attack) HTN (hypertension) Intention tremor Occlusion of left internal carotid artery PUD (peptic ulcer disease) TIA (transient ischemic attack) 2013 Surgical History Surgical History History of tonsillectomy Family History Family History Other Carcinoma of colon Hypertension Social History Social History Smoking packs per day: 1 Smoking cigarettes per day: 20.0 Years smoked: 45 Smoking pack-years: 45.00 Smoking status: Current every day smoker Tobacco type: cigarettes Alcohol intake: current Drinks per week: 28 Substance use: never Substance use type: does not use Gender identity (if verbalized by the patient): Male Spiritual care concerns: No Meds Home Medications and Allergies Home Medications Medication Instructions Recorded Confirmed Type aspirin 325 mg PO DAILY 03/01/19 10/31/20 History amlodipine 5 mg tablet See Rx Instructions .ROUTE 06/07/20 10/31/20 Rx .COMPLEX #90 tablet hydralazine 50 mg tablet See Rx Instructions .ROUTE 06/07/20 10/31/20 Rx .COMPLEX #270 tablet metoprolol succinate 50 mg See Rx Instructions .ROUTE 06/07/20 10/31/20 Rx tablet,extended release 24 hr .COMPLEX #90 tablet albuterol sulfate 90 mcg/actuation 2 inh INHALATION Q4H PRN #8.5 g 07/25/20 10/31/20 Rx aerosol inhaler losartan 100 mg tablet 100 mg PO DAILY #90 tablet 09/05/20 10/31/20 Rx fluticasone furoate 200 1 inh INHALATION DAILY #90 ea 09/05
--- NOTE | 2020-10-31 14:06 | PM.IMPN ---
Progress Note: A&P Assessment and Plan (1) Acute respiratory failure: Code(s): J96.00 - Acute respiratory failure, unspecified whether with hypoxia or hypercapnia Status: Acute Assessment and Plan: he was on 3 L of oxygen which was down from 10 L of oxygen in the morning. Continue suctioning of his secretions from the pharynx and marked cavity definitely improved his respiratory status. Wean oxygen if tolerated. He will be intubated for endoscopy and bronchoscopy later today. There will be attempt to extubate him after the procedure but if he cannot be then he will go to ICU for close monitoring and remain on mechanical ventilation. Continous pulse ox will be maintained. (2) Acute exacerbation of CHF (congestive heart failure): Code(s): I50.9 - Heart failure, unspecified Status: Acute Assessment and Plan: 2D echo and bilateral lower extremity Doppler ultrasound is pending. strict intake output record and daily weight will be maintained. Continue to monitor renal parameters and electrolytes. Continue diuresis with IV Lasix. (3) HTN (hypertension): Qualifiers: Hypertension type: unspecified Qualified Code(s): I10 - Essential (primary) hypertension Code(s): I10 - Essential (primary) hypertension Status: Acute Assessment and Plan: Continue his home regimen of metoprolol, losartan, hydralazine and Amlodipine. (4) History of TIA (transient ischemic attack): Code(s): Z86.73 - Personal history of transient ischemic attack (TIA), and cerebral infarction without residual deficits Status: Acute Assessment and Plan: Continue on Aspirin. He is currently not on statin. (5) Occlusion of left internal carotid artery: Code(s): I65.22 - Occlusion and stenosis of left carotid artery Status: Acute Assessment and Plan: CONTINUE TO MONITOR (6) Aspiration of food: Code(s): T17.920A - Food in respiratory tract, part unspecified causing asphyxiation, initial encounter Status: Acute Assessment and Plan: Continue Zosyn empirically for aspiration pneumonia /pneumonitis. Bronchoscopies will be performed later today by Pulmonary. Will follow BAL culture. (7) Esophageal obstruction: Code(s): K22.2 - Esophageal obstruction Status: Acute Assessment and Plan: CT neck and chest showed obstruction of the esophagus. Gastroenterology service has evaluated the patient and their recommendations appreciated. He will have endoscopy to try to remove the foreign body later today. (8) COPD (chronic obstructive pulmonary disease): Qualifiers: COPD type: unspecified COPD Qualified Code(s): J44.9 - Chronic obstructive pulmonary disease, unspecified Code(s): J44.9 - Chronic obstructive pulmonary disease, unspecified Status: Acute Assessment and Plan: Continue bronchodilator. No evidence of COPD exacerbation. Steroids not indicated for pulmonary perspective. Subjective Date/time seen: 10/31/20 14:06 I was called by the nurse at the bedside for worsening respiratory status with respiratory distress. Was on 10 L of oxygen at that time. Estate CT of the neck and chest showed completely occluded esophagus with right lower lobe and right middle lobe pneumonia. Pulmonary service has evaluated the patient at the bedside. He was started on continue suction of the upper pharyngeal area with improvement in his respiratory status. He was down to 3 L of oxygen had the bedside. Endoscopy and bronchoscopy has been planned by GI and Pulmonary service later today. He will be intubated for the procedure. Review of Systems Review of Systems: Narrative: A comprehensive review of systems has been reviewed with the patient and most of the symptoms are negative except the one's mentioned above in HPI. Exam Narrative: Exam Km
--- NOTE | 2020-10-31 14:12 | SUR.PHASEII ---
Updated family member waiting in dept on patient status. Patient still in procedure at this time.
--- NOTE | 2020-10-31 14:39 | SUR.OPER ---
1438 Dr. Mcdowell reported off to Dr. Rios. Dr. Mcdowell out of room. 1439 Time out performed with Dr. Rios present prior to bronchoscopy start.
[2020-10-31] MEDS: LACTATED RINGERS 1,000 ML 100 ML IV CONT (15:02)
--- NOTE | 2020-10-31 16:25 | SUR.PHASEII ---
Called Dr. Polk to inform him of result of chest Xray of large right pneumothorax with collapse of most of the right lung which was called to this RN by Dr. Patiño, Radiologist.
--- NOTE | 2020-10-31 16:45 | SUR.PHASEII ---
Dr. Polk at bedside at [facility]. Discussing results with patient/patient's family.
--- NOTE | 2020-10-31 17:12 | PC.NURSE ---
patient still in GI lab but going to ICU-8 post procedure. Report given to Ana TOVAR.
--- NOTE | 2020-10-31 17:30 | PM.EVENT ---
Event Note Event Note Event Note: Called from PACU with patient having large right pneumothorax by CXR and immediately went to PACU. On arrival to PACU patient awake and alert and in no respiratory distress, vitals stable. He was on BiPAP by anesthesia for low saturations without my knowledge. I removed BiPAP and placed on 15 L NRB mask and saturations were at 100%. I consulted general surgery suction roller and Dr. Victor returned my call and he then placed chest tube in PACU. Repeat CXR with chest tube in place and re-expansion of right lung. Patient remained in no distress and weaned FIO2. Discussed with hospitalist and informed swedish masseuse.
--- NOTE | 2020-10-31 17:37 | SUR.PHASEII ---
Dr. Victor arrived in Endoscopy with chest tube placement kit. Dr. Victor and Dr. Polk discussed placement with patient and his . Consent for placement of right sided chest tube was obtained from patient's . Placement of right sided chest tube began at approximately 1700 and ended at approximately 1730. 2mL of 2% Lidocaine was injected at the right chest tube insertion site by Dr. Victor during the procedure. A STAT portable chest Xray was obtained post right sided chest tube insertion.
[2020-10-31] MEDS: HYDROcodone/acetaminophen (*CRX) 5-325 MG TABLET 1 TAB PO ×2 (18:41→23:03)
[2020-10-31] MEDS: hydrALAZINE HCL 50 MG TABLET PO (18:41)
[2020-11-01] VITALS (19 sets, daily range): BP systolic 93–149; BP diastolic 66–95; PULSE 69–105; RESP 12–26; TEMP 36.3–36.5; O2SAT 92–100
[2020-11-01] MEDS: HYDROcodone/acetaminophen (*CRX) 5-325 MG TABLET 1 TAB PO ×3 (05:07→21:08)
--- NOTE | 2020-11-01 06:00 | ECHO_ITS ---
Patient Info Name: Chano Dubose Age: 65 years : 1955 Gender: Male Ht: 71 in Wt: 150 lbs BSA: 1.84 m2 HR: 96 bpm BP: 133 / 83 mmHg Heart Rhythm: Atrial Fibrillation Technical Quality: Fair Exam Date: 11/01/2020 1:51 PM Exam Location: [facility] Pulmonary Exam Room: ICU8 Patient Status: Inpatient Admit Date: 10/31/2020 Staff Ordering Physician: Eliezer Riggs MD Sensor Specialist: Fe Castro RDCS Attending Provider: Jaguar Downs MD Referring Physician: Oneil TURNER; Exam Type: CA echo doppler color flow Study Info Indications - CHF Complete two-dimensional, color flow and Doppler transthoracic echocardiogram is performed. LIMITED VIEWS. Summary 1. Complete two-dimensional, color flow and Doppler transthoracic echocardiogram is performed. 2. Left ventricular size and systolic function are normal with no regional wall motion abnormalities with an estimated ejection fraction of 65-70%. Moderate LVH is present. Diastolic function is indeterminate. 3. Right ventricular chamber dimension is moderately enlarged with normal systolic function. 4. Right atrial chamber dimension is moderately enlarged. 5. Left atrial chamber dimension is mildly enlarged. 6. There is mild tricuspid valve regurgitation. 7. Moderate pulmonary hypertension, estimated pulmonary arterial systolic pressure is 60 mmHg. 8. Atrial fibrillation. Left Ventricle Left ventricular chamber dimension is normal. Left ventricular systolic function is normal, estimated at 65-70%. There is moderately increased left ventricular wall thickness. Left ventricular septal wall motion is normal. The left ventricular diastolic function is indeterminate. Left ventricular size and systolic function are normal with no regional wall motion abnormalities with an estimated ejection fraction of 65-70%. Moderate LVH is present. Diastolic function is indeterminate. Left ventricular chamber size, wall thickness, systolic and diastolic function are normal with no regional wall motion abnormalities with an estimated ejection fraction of Empty. Right Ventricle Right ventricular chamber dimension is moderately enlarged with normal systolic function. Right ventricular systolic function is normal. Left Atria Left atrial chamber dimension is mildly enlarged. Right Atria Right atrial chamber dimension is moderately enlarged. Aortic Valve The aortic valve is trileaflet. There is no aortic valve sclerosis. There is no aortic valve stenosis. There is no aortic valve regurgitation. Pulmonic Valve The pulmonic valve is normal. There is no pulmonic valve stenosis. There is no pulmonic regurgitation. Mitral Valve The mitral valve has normal leaflets. There is no mitral valve stenosis. There is no mitral valve regurgitation. Tricuspid Valve The tricuspid valve leaflets are normal. There is no significant tricuspid valve stenosis. There is mild tricuspid valve regurgitation. Moderate pulmonary hypertension, estimated pulmonary arterial systolic pressure is 60 mmHg. Pericardium/Pleural The pericardium appears normal. There is no pericardial effusion. Inferior Vena Cava Normal inferior vena cava with >50% collapse upon inspiration consistent with Empty right atrial pressure, 10 mmHg. Aorta The aortic root size at the sinus of Valsalva is normal. The prox ascending aorta size is normal. Left Ventricular Outflow Tract
[2020-11-01 06:53] LABS: Alanine Aminotransferase 21 U/L (4-50); Albumin Level 3.4 g/dL (3.5-5.1); Alkaline Phosphatase 66 U/L (38-126); Anion Gap 7 mmol/L (8-16); Aspartate Amino Transferase 36 U/L (17-59); Bilirubin,Total 1.1 mg/dL (0.2-1.3); Blood Urea Nitrogen 21 mg/dL (9-20); Calcium 9.2 mg/dL (8.4-10.2); Carbon Dioxide 32 mmol/L (22-30); Chloride 97 mmol/L (98-107); Estimated CRCL calculation 69 ml/min; Estimated Glomerular Filt Rate > 60; Glucose 104 mg/dL (65-110); Potassium 3.9 mmol/L (3.4-5.0); Sodium 136 mmol/L (137-145)
--- NOTE | 2020-11-01 08:36 | PM.PNPUL ---
Progress Note: A&P Assessment and Plan (1) Aspiration of food: Code(s): T17.920A - Food in respiratory tract, part unspecified causing asphyxiation, initial encounter Status: Acute Assessment and Plan: 10/31 Patient with a history of COPD was in his usual state of health when he choked on food developing respiratory distress afterwards. Patient has an esophageal obstruction and also debris in his right lower lobe. The plan is to perform an emergent EGD per the GI team followed by a bronchoscopy by myself to assess the airways for aspirated food. Currently patient is in no respiratory distress as long as he applies frequent Yankauer suctioning to his mouth. Prior to this choking event he had no evidence of a COPD exacerbation. After the bronchoscopy I will initiate albuterol and ipratroprium nebulizers. At this time I do not think he needs inhaled or systemic steroids. There is evidence of focal infiltrate in the right middle lobe and the patient is currently on Zosyn. Patient states that he does not use oxygen at home and currently he is on 3 L nasal cannula with saturations of 92%. Goal saturation 90-94. Discussed with hospitalist, GI, and endoscopy coordinator. Later in day intubated (difficult per anesthesia) and had EGD with removal and advancement of esophageal food obstruction and then bronchoscopy with aspiration of secretions RLL and left lung without any evidence of foreign body in airway. Extuated and hypoxia and placed on BiPAP in recovery without my knowledge and CXR then with large right pneumothorax. Small bore CT placed by surgery with reexpansion of right lung and transferred to ICU on 6 L NC. 11/01 No evidence of foreign body by bronchoscopy, suctioned secretions. Washing with few Epithelial cells, moderate white blood cells, mixed bacterial shari. On zosyn for possible aspiration pneumonia. Afebrile. No evidence of COPD exacerbation, will place on albuterol and ipratroprium nebs. Right pneumothorax identified post procedure. Etiology includes procedural, BiPAP use, positive pressure ventilation from procedure. CT oin place with small medial apical pneumo today on 25 cm suction. Surgery managing. Continued air leak today. Spoke to senior advocate and patient's on speaker phone and updated patient and . Will follow with you Subjective Date/time seen: 11/01/20 08:36 Interval history: 10/31 This is a new Pulmonary consultation for COPD with hypoxemic respiratory failure 65-year-old male with a history of hypertension, TIA, peptic ulcer disease, left internal carotid artery occlusion in 06/26/2012 with tobacco use and GOLD grade 4 group B COPD with FEV1 of 0.73 L (21% predicted), airtrapping (RV 252% predicted), hyperinflation (FRC 202% predicted), DLCO (23% predicted) was in his usual state of health until 10/30 at 17:00he ate pork steak and choked on this. Prior to this event he denies fever, chills, rigors, phlegm production, hemoptysis, chest pain or change in his chronic dyspnea on exertion. With the choking patient had hypoxemia, dizziness and respiratory distress. EMS was called and he was foaming at the mouth in respiratory distress. He arrived to the emergency department and was placed on BiPAP and given Lasix. Patient's white blood cell count was 9.2, Serum bicarbonate was 25, troponins were negative x2, BNP was 12 90, an ABG on BiPAP was 7.141/38/160 on BiPAP 16/8 and 50%. chest x-ray demonstrated severe emphysema, nodular opacity in the right mid lung zone. Patient was admitted to the floor on BiPAP. Baseline: Patient smoked a pack and half of cigarettes from age 15 to current for total of 75 pack years. 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 Patient denies same blasting, vaping, illicit drug use. Patient states that his dyspnea on exertion is at 2 blocks. He has had no hospitalizations or exacerbations in the last year. 10/31 Patient had
--- NOTE | 2020-11-01 08:49 | WPDANESPN ---
Anes - Prog Note Post-Op Date/Time: 11/01/20 08:49 Cardiovascular status: normal Respiratory status: normal Airway patency: baseline Mental status: baseline Post-Op hydration status: normal Vital Signs: Last Vital Signs Temp 36.3 C L 11/01/20 04:00 Pulse 95 11/01/20 06:00 Resp 26 H 11/01/20 06:00 BP 119/82 11/01/20 06:00 Pulse Ox 93 11/01/20 06:00 Pain Score (VAS): 0 I/O: Intake & Output 10/31/20 11/01/20 11/01/20 23:59 07:59 15:59 Intake Total 400 250 Output Total 1275 Balance 400 -1025 Laboratory Tests 10/30/20 18:12 11/01/20 06:14 11/01/20 06:14 Sodium 136 L Potassium 3.9 Chloride 97 L Carbon Dioxide 32 H Anion Gap 7 L BUN 21 H Creatinine 0.80 Estim Creat Clear Calc 69 Estimated GFR > 60 Glucose 104 Calcium 9.2 Total Bilirubin 1.1 AST 36 ALT 21 Alkaline Phosphatase 66 Total Protein 6.0 L Albumin 3.4 L Microbiology 10/31/20 15:16 Bronchial Washings Subcarinal Respiratory Culture - Preliminary Post-procedural complaints: none Patient Feedback: Patient satisfied with anesthetic care.
[2020-11-01] MEDS: FUROSEMIDE INJ 40 MG/4 ML VIAL IV PUSH (08:54)
[2020-11-01] MEDS: LOSARTAN POTASSIUM 100 MG TABLET PO (08:54)
[2020-11-01] MEDS: amLODIPine BESYLATE 5 MG TABLET BY MOUTH (08:54)
[2020-11-01] MEDS: ENOXAPARIN 40 MG/0.4 ML SYRINGE SUB-Q (08:54)
[2020-11-01] MEDS: METOPROLOL SUCCINATE EXT REL 50 MG TABCR BY MOUTH (08:54)
[2020-11-01] MEDS: hydrALAZINE HCL 50 MG TABLET PO ×2 (08:54→15:27)
--- NOTE | 2020-11-01 09:32 | WPDCNINT ---
Assessment and Plan Assessment and plan (1) Pneumothorax on right: Code(s): J93.9 - Pneumothorax, unspecified Status: Acute Assessment and Plan: spontaneous pneumothorax on the right. Status post chest tube placement persistent air leak while on -25 suction continue chest tube management at this time may need surgical intervention if does not resolve conservative management (2) Acute respiratory failure: Code(s): J96.00 - Acute respiratory failure, unspecified whether with hypoxia or hypercapnia Status: Acute Assessment and Plan: patient was on BiPAP earlier but now improved and currently saturating on nasal cannula with no respiratory distress bronchodilators for COPD (3) Esophageal obstruction: Code(s): K22.2 - Esophageal obstruction Status: Acute Assessment and Plan: status post EGD and removal (4) Aspiration of food: Code(s): T17.920A - Food in respiratory tract, part unspecified causing asphyxiation, initial encounter Status: Acute Assessment and Plan: consult speech for swallow evaluation status post bronchoscopy in which large amount of secretions were removed (5) Gastritis: Code(s): K29.70 - Gastritis, unspecified, without bleeding Status: Acute Assessment and Plan: PPI (6) Aspiration pneumonia: Code(s): J69.0 - Pneumonitis due to inhalation of food and vomit Status: Acute Assessment and Plan: continue Zosyn (7) COPD exacerbation: Code(s): J44.1 - Chronic obstructive pulmonary disease with (acute) exacerbation Status: Acute Assessment and Plan: bronchodilators (8) Acute exacerbation of CHF (congestive heart failure): Code(s): I50.9 - Heart failure, unspecified Status: Acute Assessment and Plan: BNP elevated on presentation and patient was given Lasix echocardiogram pending hold further Lasix as CT did not show any significant pulmonary edema (9) HTN (hypertension): Qualifiers: Hypertension type: unspecified Qualified Code(s): I10 - Essential (primary) hypertension Code(s): I10 - Essential (primary) hypertension Status: Acute Assessment and Plan: continue metoprolol losartan and Norvasc Additional Plan DVT prophylaxis - Lovenox Stress ulcer prophylaxis - PPI Nutrition - swallow eval Code Status - Full Code Air Analyst Consult Note Consult date: 11/01/20 Time Seen: 08:30 HPI: Chano Dubose is a 65 year old male with past medical history significant for severe chronic obstructive pulmonary disease/emphysema, hypertension, peptic ulcer disease, smokes 1 pack a day of cigarettes presented to the emergency room on after he had an episode of choking with food he became severely distress and EMS was called. no loss of consciousness or arrest. patient was in respiratory distress. in ER patient was placed on BiPAP and given Lasix CHEST X-RAY WAS SIGNIFICANT FOR EMPHYSEMA AND A LUNG NODULE. A BNP WAS 1290. CT scan of the neck and chest demonstrating esophageal dilatation and possible impacted food at the thoracic inlet. No lymphadenopathy. There is severe panlobular emphysema, 4 cm opacity right middle lobe, debris in RLL. GI and Pulmonary was consulted. patient was taken to OR and had EGD and bronchoscopy done under general anesthesia. with EEG food was removed in pieces and rest of the food was pushed down to the stomach. patient also had gastritis. with bronchoscope secretions were suctioned from right side of the lung. post procedure patient extubated and placed on BiPAP. repeat chest x-ray showed draw showed right pneumothorax. general surgery was consulted and a right chest tube was placed emergently. Repeat chest x-ray showed re-expansion of the lung. patient was then admitted to ICU for further evaluation management with chest tube to suction. Patient at this time feels better
[2020-11-01] MEDS: PANTOPRAZOLE 40 MG TABLET PO (10:53)
--- NOTE | 2020-11-01 12:00 | PCSTNOTE ---
Bedside swallow evaluation completed. Please see ST inpatient evaluation for details and recommendations.
--- NOTE | 2020-11-01 12:53 | PCDIET ---
ICU Rounding Note: Diet has just advanced to regular, per SUPPORT ARCHITECT recommendation. Bowel Motility: No documented BM as of yet. Labs Reviewed: BUN (21), Na (136), Alb (3.4) Meds Noted: [place], Albuterol, Norvasc, Apresoline, Cozaar, Toprol XL, Protonix, Zosyn Additional Notes: No documented skin breakdown. Following daily in ICU rounds. Assessing/reassessing every 3 days.
--- NOTE | 2020-11-01 13:35 | WPDGIPROGNO ---
Progress Note: A&P Assessment and Plan (1) Aspiration pneumonia: Code(s): J69.0 - Pneumonitis due to inhalation of food and vomit Status: Acute Assessment and Plan: bronchoscopy was negative for any foreign body but there were extensive secretions on the right side removed by Dr. Polk. He did well with except that he required a chest tube because of a pneumothorax. (2) Esophageal obstruction: Code(s): K22.2 - Esophageal obstruction Status: Acute Assessment and Plan: He is having no difficulty swallowing now. I told that he needs to always chew thoroughly. He does not have an actual stricture. He simply swallowed too large of a bolus which got stuck above the aortic arch. Subjective Date/time seen: 11/01/20 13:35 he states that he is able to swallow without pain. I was planning to advance in to full liquid diet but he actually has [place] fries and a burger in front of him and states that he is doing well with that. He promised he will stay away from [facility] from now on. His main complaint today is that he feels that he needs to urinate every five or 10 minutes and wonders if he needs a Rodrigues catheter Review of Systems Review of Systems: All systems reviewed & are unremarkable except as noted in HPI and below Exam Const: General: cooperative, comfortable and alert GI: Inspection: normal to inspection GI Palp: No abdominal tenderness and Yes Soft to palpation Auscultation: normal bowel sounds Objective Data Vital Signs Vital Signs: Vital Signs - 24 hr 10/31/20 15:30 10/31/20 15:40 10/31/20 15:50 Temperature 36.3 C L Pulse Rate 108 H 105 H 97 Respiratory Rate 22 H 19 28 H Blood Pressure 136/101 H 131/92 H 114/79 Pulse Oximetry 91 92 95 10/31/20 15:52 10/31/20 16:00 10/31/20 16:10 Temperature Pulse Rate 107 H 96 101 H Respiratory Rate 19 25 H 19 Blood Pressure 115/82 134/90 Pulse Oximetry 92 95 93 10/31/20 16:20 10/31/20 16:30 10/31/20 17:00 Temperature Pulse Rate 86 84 99 Respiratory Rate 25 H 21 H 20 Blood Pressure 121/84 127/81 124/91 H Pulse Oximetry 100 100 99 10/31/20 17:30 10/31/20 17:34 10/31/20 17:40 Temperature Pulse Rate 93 96 Respiratory Rate 26 H 19 18 Blood Pressure 132/86 136/86 Pulse Oximetry 100 100 98 10/31/20 18:55 10/31/20 20:00 10/31/20 22:00 Temperature 36.9 C Pulse Rate 92 82 Respiratory Rate 17 12 Blood Pressure 122/83 126/85 Pulse Oximetry 92 95 96 11/01/20 00:00 11/01/20 02:00 11/01/20 04:00 Temperature 36.5 C 36.3 C L Pulse Rate 86 82 69 Respiratory Rate 23 H 20 12 Blood Pressure 132/85 144/79 H 149/89 H Pulse Oximetry 98 96 100 11/01/20 06:00 11/01/20 08:00 11/01/20 08:54 Temperature Pulse Rate 95 90 105 H Respiratory Rate 26 H 23 H Blood Pressure 119/82 128/85 Pulse Oximetry 93 96 11/01/20 10:00 11/01/20 10:50 11/01/20 12:00 Temperature Pulse Rate 93 105 H 102 H Respiratory Rate 22 H 25 H 22 H Blood Pressure 128/85 132/95 H Pulse Oximetry 96 95 92 Intake/Output Intake/Output: Intake & Output 10/29/20 10/30/20 10/31/20 11/01/20 23:59 23:59 23:59 23:59 Intake Total 450 300 Output Total [address] [facility] -550 -975 Meds/Results Medications: Active Medications Generic Name Dose Route Start Last Admin Trade Name Freq PRN Reason Stop Dose Admin Hydrocodone Bitart/Acetaminophen 1 tab 10/30/20 19:35 11/01/20 10:53 Hydrocodone/Acetaminophen (*Crx) 5-325 Mg Tablet PO 1 tab Q4H PRN Administration Pain Rated 4-6 Albuterol 2 puff 10/30/20 21:09 Albuterol Sulfate (*Sp) Aerosol 1 Puff INHALATION Q4H PRN shortness of breath or wheezing Albuterol 2.5 mg 11/01/20 14:00 Albuterol Sulfate Neb 2.5 Mg/0.5 Ml Inh INHALATION Q6HRT [facility] Amlodipine Besylate 5 mg 10/31/20 09:00 11/01/20 08:54 Amlodipine Besylate 5 Mg Tablet BY MOUTH 5 mg DAILY MARILU Administration Enoxaparin Sodium 40 mg 10/31
[2020-11-01] MEDS: ALBUTEROL SULFATE NEB 2.5 MG/0.5 ML INH INHALATION ×2 (14:10→19:33)
--- NOTE | 2020-11-01 15:06 | W.PM.PROC2 ---
Procedure Note - Detailed Date of Procedure 10/31/20 Pre-op Diagnosis Right-sided pneumothorax Post-op Diagnosis same Procedure Performed Chest tube Placement (tube thoracostomy) Surgeon Aly Vitcor MD Electrical Engineering Manager none Anesthesia other (Local with 2% Xylocaine) Indications Recently discovered pneumothorax on the Right Findings normal chest wall anatomy on the side of tube placement. Description of Procedure Thal quick cath thoracostomy: Time-out was performed with the team and all equipment was confirmed to be present. A previously prepared small pieces of 2 inch nylon tape with 3 arm such that I could tape the tube in place once that was in position. The Thal kit was opened and usin sterile coditions I obtained 4 cc of local anesthetic In a 10 cc syringe then connected a 25 g needle. With the patient's arm up above their head on the side of the pneumothorax we carefully prepped the entire lateral chest sterile towel was placed below the prepped area. Local anesthetic was infiltrated over the 5th rib in the anterior axillary line. Following this a small incision was made with 11 blade knife about 0.6 cm in size. Following this the provided 18 gauge needle on a syringe was used to pass over the 4th rib and into the chest cavity. Definite bubbling was seen as we aspirated on the syringe. The syringe was taken off the eedle and the guidewire provided in the kit was carefully inserted into the chest cavity through the needle. The needle was backed off this and then 3 dilators serialy larger were passed over the wire dilating up the tract into and through the chest wall. Following this the provided Thal 16 Fr. catheter with a internal guide was fed over the catheter and up into the chest to the 15 cm mihceal. The internal dilator was pulled out as was the wire. The chest tube was left in place. The U-stitch was then used to secure the catheter in place by placing in this our around the tube time it once and then wrapping it around the tube and tying it with 3 knots. Following this the tape was used to hold in place after placing a dressing of Vaseline gauze and a split 2 x 2. Tube was connected to the Pleur-Evac and then the Pleur-evac to 20 cm of suction. Patient tolerated the procedure well. l Implants RT. sided chest tube Estimated Blood Loss 2 Urine Output 650 Drains Yes (one size 16 Fr. chest tube) Packing No Pathology none sent Complications No immediate complications Condition stable Disposition ICU
--- NOTE | 2020-11-01 15:26 | PM.PNGS ---
Progress Note: A&P Assessment and Plan (1) Pneumothorax on right: Onset Date: ~10/31/20 Code(s): J93.9 - Pneumothorax, unspecified Status: Acute Assessment and Plan: This is the main reason I saw the patient. I placed the Thal 16 Tamazight chest tube yesterday. He still has an air leak. I have discussed this with the therapist occupational Dr. Pierre. We will continue to observe and leave the chest tube to Pleur-Evac and to suction overnight. Repeat chest x-ray in the morning. I may pull the chest tube back a few cm tomorrow after the chest x-ray if he still has an early to see if it is contributing to keeping the lung from healing at the apex. (2) Aspiration pneumonia: Onset Date: Unknown Code(s): J69.0 - Pneumonitis due to inhalation of food and vomit Status: Acute Assessment and Plan: At the same time the patient developed a food bolus he may have aspirated. Chest x-ray showing some infiltrate both sides. Repeat will be ordered for tomorrow. (3) Gastritis: Onset Date: Unknown Code(s): K29.70 - Gastritis, unspecified, without bleeding Status: Acute Assessment and Plan: See gastroenterology note and endoscopy note. (4) COPD exacerbation: Onset Date: Unknown Code(s): J44.1 - Chronic obstructive pulmonary disease with (acute) exacerbation Status: Acute Assessment and Plan: Patient not really aware that he has significant COPD. Both Dr. Pierre of therapist occupational and Dr. Rios are discussing this with him and the expected outcomes. He has been started on some treatments for his COPD and wheezing. Subjective Subjective Date/Time Seen: 11/01/20 15:26 Post Op day: 1 ( status post right chest tube placement) Patient reports: no new complaints Interval history: Patient states he is sitting up breathing okay. Has not been out of bed. Nurse reports therapist occupational has suggested patient may sit at the bedside but not get out of bed yet. Review of Systems Constitutional: Constitutional: Reports no additional constitutional complaints ENT: Reports other (Mucous Membranes moist.) Cardiovascular: Cardiovascular: Denies dyspnea Respiratory: Respiratory: Reports no additional respiratory complaints, Denies change in phlegm color, Denies pain on inspiration and Denies dyspnea Comments: Denies shortness of breath. Confirms that inhalation respiratory treatments have begun. Musculoskeletal: Musculoskeletal: Reports other (No calf swelling or edema) Integumentary/Breasts: Skin/Breast: Reports system reviewed and no additional complaints, except as docu Exam Const: General: cooperative, no acute distress, alert and awake Orientation/consciousness: patient oriented x3 HENMT: Mouth: Yes moist mucous membranes Neck: Neck: normal visual inspection Chest: Chest palpation & inspection: normal inspection of the chest Other: Chest tube dressing intact without much drainage. There is still nearly air leak. I took the Pleur-Evac off suction had the patient cough and there was still air leaking with that also. Chest x-ray reviewed and report noted. Resp: Effort & Inspection: normal respiratory effort Auscultation: clear to auscultation bilaterally and wheezes ( At right mid lung field) scattered wheezes and right lower Cardio: Jugular venous distension: no JVD Rate: regular rate Rhythm: regular rhythm GI: Rectal Exam: deferred Neuro: General: patient oriented x3 and moves all extremities Speech: normal speech Extrem: General: normal exam except as noted Psych: Mental Status: mental status grossly normal Speech and movement: Normal speech and movement present Affect: normal affect Thought content: Yes Normal thought content present Objective Data Vital Signs Vital Signs: Vital Signs - 24 hr 10/31/20 15:30 10/31/20 15:40 10/31/20 15:50 Temperature 36.3 C L Pulse Rate 108 H 105 H 97 Respiratory Rate 22 H 19 28 H Blood Pres
--- NOTE | 2020-11-01 17:39 | PM.IMPN ---
Progress Note: A&P Assessment and Plan (1) Pneumothorax on right: Onset Date: ~10/31/20 Code(s): J93.9 - Pneumothorax, unspecified Status: Acute Assessment and Plan: spontaneous pneumothorax on the right. Status post chest tube placement persistent air leak while on -25 suction continue chest tube management at this time may need surgical intervention if does not resolve conservative management repeat imaging in am (2) Acute respiratory failure: Code(s): J96.00 - Acute respiratory failure, unspecified whether with hypoxia or hypercapnia Status: Acute Assessment and Plan: on nasal cannula with no respiratory distress bronchodilators for COPD (3) Esophageal obstruction: Code(s): K22.2 - Esophageal obstruction Status: Acute Assessment and Plan: status post EGD and removal (4) Aspiration of food: Code(s): T17.920A - Food in respiratory tract, part unspecified causing asphyxiation, initial encounter Status: Acute Assessment and Plan: consult speech for swallow evaluation-> passed started on general diet status post bronchoscopy in which large amount of secretions were removed (5) Gastritis: Onset Date: Unknown Code(s): K29.70 - Gastritis, unspecified, without bleeding Status: Acute Assessment and Plan: PPI (6) Aspiration pneumonia: Onset Date: Unknown Code(s): J69.0 - Pneumonitis due to inhalation of food and vomit Status: Acute Assessment and Plan: continue Zosyn (7) COPD exacerbation: Onset Date: Unknown Code(s): J44.1 - Chronic obstructive pulmonary disease with (acute) exacerbation Status: Acute Assessment and Plan: bronchodilators (8) Acute exacerbation of CHF (congestive heart failure): Code(s): I50.9 - Heart failure, unspecified Status: Acute Assessment and Plan: BNP elevated on presentation and patient was given Lasix echocardiogram pending hold further Lasix as CT did not show any significant pulmonary edema (9) HTN (hypertension): Qualifiers: Hypertension type: unspecified Qualified Code(s): I10 - Essential (primary) hypertension Code(s): I10 - Essential (primary) hypertension Status: Acute Assessment and Plan: continue metoprolol losartan and Norvasc (10) Urinary (tract) obstruction: Code(s): N13.9 - Obstructive and reflux uropathy, unspecified Status: Acute Assessment and Plan: insert malin 1000 ml out start Flomax Additional Plan DVT prophylaxis - Lovenox Stress ulcer prophylaxis - PPI Code Status - Full Code Subjective Date/time seen: 11/01/20 15:39 bedside, pt feeling better intermittently confused. reports long history of difficulty initiating voiding, weak stream, and urinary frequency Exam Narrative: GEN: NAD, AAOx3, cooperative HEENT: NCAT, MMM, EOMI Neck: no JVD Heart: S1S2 RRR Lungs: crackles, R sided CT to gravity Abd: soft, NT, ND, bowel sounds normoactive Ext: moves all, no cyanosis, no clubbing, 1+ edema , chronic stasis changes to LE Neuro: CN intact, no focal motor deficits Objective Data Vital Signs Vital Signs: Vital Signs - 24 hr 10/31/20 20:00 10/31/20 22:00 11/01/20 00:00 Temperature 98.5 F 97.7 F Pulse Rate 92 82 86 Respiratory Rate 17 12 23 H Blood Pressure 122/83 126/85 132/85 Pulse Oximetry 95 96 98 11/01/20 02:00 11/01/20 04:00 11/01/20 06:00 Temperature 97.3 F L Pulse Rate 82 69 95 Respiratory Rate 20 12 26 H Blood Pressure 144/79 H 149/89 H 119/82 Pulse Oximetry 96 100 93 11/01/20 08:00 11/01/20 08:54 11/01/20 10:00 Temperature Pulse Rate 90 105 H 93 Respiratory Rate 23 H 22 H Blood Pressure 128/85 128/85 Pulse Oximetry 96 96 11/01/20 10:50 11/01/20 12:00 11/01/20 14:00 Temperature Pulse Rate 105 H 102 H 92 Respiratory Rate 25 H 22 H 21 H B
[2020-11-01] MEDS: ZOLPIDEM TARTRATE (*CRX) 5 MG TABLET PO (21:08)
[2020-11-02] VITALS (22 sets, daily range): BP systolic 92–141; BP diastolic 65–99; PULSE 63–100; RESP 12–23; TEMP 36.5–36.9; O2SAT 86–99
[2020-11-02] MEDS: ALBUTEROL SULFATE NEB 2.5 MG/0.5 ML INH INHALATION ×4 (02:18→21:28)
[2020-11-02 06:54] LABS: Basophils Percent Auto 0.4 % (0.2-1.2); Eosinophils Percent Auto 0.1 % (0-4.4); Hematocrit 46.5 % (42.0-52.0); Immature Granulocyte Absolute 0.03 K/mm3 (0.00-0.031); Immature Granulocyte Percent A 0.3 % (0-0.5); Lymphocytes Absolute Auto 0.74 K/mm3 (0.9-3.2); Lymphocytes Percent Auto 7.7 % (18.3-44.2); Mean Corpuscular HGB Conc 32.3 g/dl (32-36); Mean Corpuscular Hemoglobin 33.8 pg (26-34); Mean Corpuscular Volume 104.7 fl (80-100); Mean Platelet Volume 8.7 fl (7.4-10.4); Monocytes Absolute Auto 1.2 K/mm3 (0.1-0.6); Monocytes Percent Auto 12.5 % (2.6-8.5); Neutrophils Absolute Auto 7.6 K/mm3 (1.3-6.7); Platelet Count Result 200 k/mm3 (150-375); Red Blood Count 4.44 M/mm3 (4.6-6.20); Red Cell Distribution Width 13.9 % (11.5-14.5); White Blood Count 9.6 K/mm3 (4.5-10.0)
[2020-11-02 07:08] LABS: Anion Gap 4 mmol/L (8-16); Blood Urea Nitrogen 24 mg/dL (9-20); Calcium 8.8 mg/dL (8.4-10.2); Carbon Dioxide 37 mmol/L (22-30); Chloride 93 mmol/L (98-107); Estimated CRCL calculation 54 ml/min; Estimated Glomerular Filt Rate > 60; Glucose 84 mg/dL (65-110); Potassium 3.7 mmol/L (3.4-5.0); Sodium 134 mmol/L (137-145)
[2020-11-02] MEDS: ENOXAPARIN 40 MG/0.4 ML SYRINGE SUB-Q (07:54)
[2020-11-02] MEDS: NICOTINE (*PBKC) 14 MG PATCH 1 PATCH TRANSDERM (07:54)
[2020-11-02] MEDS: PANTOPRAZOLE 40 MG TABLET PO (07:55)
[2020-11-02] MEDS: hydrALAZINE HCL 50 MG TABLET PO (07:55)
[2020-11-02] MEDS: LOSARTAN POTASSIUM 100 MG TABLET PO (07:55)
[2020-11-02] MEDS: amLODIPine BESYLATE 5 MG TABLET BY MOUTH (07:55)
[2020-11-02] MEDS: METOPROLOL SUCCINATE EXT REL 50 MG TABCR BY MOUTH (07:55)
[2020-11-02] MEDS: TAMSULOSIN HCL 0.4 MG CAPSULE PO (07:56)
--- NOTE | 2020-11-02 08:49 | PM.PNPUL ---
Progress Note: A&P Assessment and Plan (1) Aspiration of food: Code(s): T17.920A - Food in respiratory tract, part unspecified causing asphyxiation, initial encounter Status: Acute Assessment and Plan: 10/31 Patient with a history of GOLD grade 4 group B COPD with PFT on 07/21/20 with FEV1 0.73 L (21% predicted), air trapping (RV 5.97 L, 252% predicted), hyperinflation (FRC 7.62 L, 202% predicted), DLCO 23% predicted and severe panlobular emphysema on CT scan on 10/31/20 was in his usual state of health when he choked on food developing respiratory distress afterwards. Patient has an esophageal obstruction and also debris in his right lower lobe. The plan is to perform an emergent EGD per the GI team followed by a bronchoscopy by myself to assess the airways for aspirated food. Currently patient is in no respiratory distress as long as he applies frequent Yankauer suctioning to his mouth. Prior to this choking event he had no evidence of a COPD exacerbation. After the bronchoscopy I will initiate albuterol and ipratroprium nebulizers. At this time I do not think he needs inhaled or systemic steroids. There is evidence of focal infiltrate in the right middle lobe and the patient is currently on Zosyn. Patient states that he does not use oxygen at home and currently he is on 3 L nasal cannula with saturations of 92%. Goal saturation 90-94. Discussed with hospitalist, GI, and endoscopy coordinator. Later in day intubated (difficult per anesthesia) and had EGD with removal and advancement of esophageal food obstruction and then bronchoscopy with aspiration of secretions RLL and left lung without any evidence of foreign body in airway. Extuated and hypoxia and placed on BiPAP in recovery without my knowledge and CXR then with large right pneumothorax. Small bore CT placed by surgery with reexpansion of right lung and transferred to ICU on 6 L NC. 11/01 No evidence of foreign body by bronchoscopy, suctioned secretions. Washing with few Epithelial cells, moderate white blood cells, mixed bacterial shari. On zosyn for possible aspiration pneumonia. Afebrile. No evidence of COPD exacerbation, will place on albuterol and ipratroprium nebs. Right pneumothorax identified post procedure. Etiology includes procedural, BiPAP use, positive pressure ventilation from procedure. CT oin place with small medial apical pneumo today on 25 cm suction. Surgery managing. Continued air leak today. Spoke to servicer coin machines and patient's on speaker phone and updated patient and . LE dopplers negative. Echo with normal LVEF 65-70%, LVH, moderately enlarged RA and RV with normal RV systolic function and PASP 60. 11/02 Patient denies chest pain. Current saturations 97% on 7 L nasal cannula. No wheezes on exam continue albuterol and ipratroprium nebs. Afebrile and WBC 9.6K on zosyn. Chest tube with no air leak this morning with deep breaths or with cough. Chest x-ray with no identified pneumothorax. Discussed with servicer coin machines and placed chest tube on water seal. Speaker phone updates with and patient. Will follow with you Subjective Date/time seen: 11/02/20 08:49 Interval history: 10/31 This is a new Pulmonary consultation for COPD with hypoxemic respiratory failure 65-year-old male with a history of hypertension, TIA, peptic ulcer disease, left internal carotid artery occlusion in 06/26/2012 with tobacco use and GOLD grade 4 group B COPD with FEV1 of 0.73 L (21% predicted), airtrapping (RV 252% predicted), hyperinflation (FRC 202% predicted), DLCO (23% predicted) was in his usual state of health until 10/30 at 17:00 when he ate pork steak and choked on this. Prior to this event he denies fever, chills, rigors, phlegm production, hemoptysis, chest pain or change in his chronic dyspnea on exertion. With the choking patient had hypoxemia, dizziness and respiratory distress. EMS was called and he was foaming at the mouth in respiratory distress. He
[2020-11-02] MEDS: FUROSEMIDE INJ 40 MG/4 ML VIAL IV PUSH (08:53)
[2020-11-02 09:10] LABS: NT Pro B Type Natriuretic Pept 1140 pg/mL (5-100)
--- NOTE | 2020-11-02 11:40 | WPDINTPN ---
Progress Note: A&P Assessment and Plan (1) Pneumothorax on right: Onset Date: ~10/31/20 Code(s): J93.9 - Pneumothorax, unspecified Status: Acute Assessment and Plan: spontaneous pneumothorax on the right. Status post chest tube placement patient had no air leak today on his chest tube. after discussion with pulmonology, chest tube was changed water-seal will continue to monitor and repeat x-ray. if no pneumothorax will proceed to clamping the chest tube continue chest tube management at this time may be able to avoid surgical intervention (2) Acute respiratory failure: Code(s): J96.00 - Acute respiratory failure, unspecified whether with hypoxia or hypercapnia Status: Acute Assessment and Plan: patient was on BiPAP earlier but now improved and currently saturating on nasal cannula with no respiratory distress although oxygen requirement on nasal cannula is still pretty high continue bronchodilators for COPD will give another dose of Lasix today repeat BNP level IS (3) Esophageal obstruction: Code(s): K22.2 - Esophageal obstruction Status: Acute Assessment and Plan: status post EGD and removal (4) Aspiration of food: Code(s): T17.920A - Food in respiratory tract, part unspecified causing asphyxiation, initial encounter Status: Acute Assessment and Plan: patient was evaluated by speech therapy yesterday and they did not notice any abnormality. Patient himself and his denies any significant coughing after eating or drinking food at home status post bronchoscopy in which large amount of secretions were removed (5) Gastritis: Onset Date: Unknown Code(s): K29.70 - Gastritis, unspecified, without bleeding Status: Acute Assessment and Plan: continue PPI (6) Aspiration pneumonia: Onset Date: Unknown Code(s): J69.0 - Pneumonitis due to inhalation of food and vomit Status: Acute Assessment and Plan: continue Zosyn and oxygen supplementation (7) COPD exacerbation: Onset Date: Unknown Code(s): J44.1 - Chronic obstructive pulmonary disease with (acute) exacerbation Status: Acute Assessment and Plan: on bronchodilators Counselled to quit smoking Nicotine patch provided on pt's request (8) Acute exacerbation of CHF (congestive heart failure): Code(s): I50.9 - Heart failure, unspecified Status: Acute Assessment and Plan: BNP elevated on presentation and patient was given Lasix echocardiogram reviewed will give another dose of Lasix today (9) HTN (hypertension): Qualifiers: Hypertension type: unspecified Qualified Code(s): I10 - Essential (primary) hypertension Code(s): I10 - Essential (primary) hypertension Status: Acute Assessment and Plan: continue metoprolol losartan and Norvasc (10) Arrhythmia: Code(s): I49.9 - Cardiac arrhythmia, unspecified Status: Acute Assessment and Plan: patient appears to have sinus arrhythmia versus could be a sees on the telemetry check 12 lead EKG supplement potassium check Mag level Additional Plan DVT prophylaxis - Lovenox Stress ulcer prophylaxis - PPI Nutrition - Regular Diet Code Status - Full Code Subjective Date/time seen: 11/02/20 11:40 he feels better this morning. He states that his pain on the right side of the chest is much better. Shortness of breath is also improved. Continues to have cough but again states it is better than yesterday. Patient denies fever, nausea vomiting, abdominal pain, diarrhea, headache or constipation. All other systems were reviewed and were negative Interval history: DATA: EXAMINATION: CT soft tissue neck chest wo EXAM DATE: 10/31/2020 08:14 INDICATION: Respiratory distress, possible impacted food. TECHNIQUE: Spiral CT of the
--- NOTE | 2020-11-02 11:44 | ECG_ITS ---
Measurements Intervals [place] Rate: 96 P: 81 MD: 153 QRS: -67 QRSD: 109 T: 78 QT: 357 QTc: 452 Interpretive Statements SINUS RHYTHM FREQUENT ATRIAL PREMATURE COMPLEXES INCOMPLETE RIGHT BUNDLE BRANCH BLOCK DELAYED PRECORDIAL R/S TRANSITION INFERIOR INFARCT, AGE INDETERMINATE BORDERLINE ST-T WAVE ABNORMALITY- ANTEROLAT/HIGH LAT LEADS BASELINE ARTIFACT- I, II, III, V4-V6 ABNORMAL ECG Electronically Signed On 11-02-2020 12:23:27 CDT by Gordon Rosado D.O.
--- NOTE | 2020-11-02 11:48 | PM.PNGS ---
Progress Note: A&P Assessment and Plan (1) Pneumothorax on right: Onset Date: ~10/31/20 Code(s): J93.9 - Pneumothorax, unspecified Status: Acute Assessment and Plan: This is the main reason for our consultation. Chest tube placed on 10/31 for right pneumothorax. Yesterday, the patient had an air leak on exam. Chest x-ray today showed no pneumothorax. Pulmonology saw the patient this morning and did not see an air leak, so they placed the chest tube to water seal. Small air leak noted on my exam. Will keep him on water seal and repeat chest x-ray tomorrow morning. Discussed with Dr. Victor who may try to take down his dressing later today and pull the chest tube back a few cm in case placement of the chest tube is contributing this healing. (2) Aspiration pneumonia: Onset Date: Unknown Code(s): J69.0 - Pneumonitis due to inhalation of food and vomit Status: Acute Assessment and Plan: Food bolus removed by GI endoscopically with no findings of stricture. Bronchoscopy showed no foreign body but extensive secretions on the right. Chest x-ray showing bilateral infiltrates. On IV Zosyn. Pulmonology following. (3) Gastritis: Onset Date: Unknown Code(s): K29.70 - Gastritis, unspecified, without bleeding Status: Acute (4) COPD exacerbation: Onset Date: Unknown Code(s): J44.1 - Chronic obstructive pulmonary disease with (acute) exacerbation Status: Acute Additional Plan I have discussed the plan of care with Dr. Victor. Subjective Subjective Date/Time Seen: 11/02/20 10:48 Post Op day: 2 (chest tube placement on 10/31) Patient reports: feels better and shortness of breath (with any activity or lying flat) Interval history: Patient seen today with family at the bedside. He denies having any chest pain. Reports SOB with activity. Per the nurse, his O2 sats dropped to the 70's when he had to be rolled side to side in the bed this morning to change his sheets. He was on 15L O2 and reportedly took a long time for his O2 to come back up. The nurse states she is now titrating the O2 back down. The nurse also reports that Pulmonology came by this morning and put the chest tube to water seal around 8:15, and at that time he did not have an air leak. No other issues. Patient is feeling anxious but denies any other complaints. Review of Systems Review of Systems: All systems reviewed & are unremarkable except as noted in HPI and below Exam Const: General: no acute distress, alert, awake and anxious Orientation/consciousness: patient oriented x3 Chest: Chest palpation & inspection: no crepitus Other: Right chest tube to water seal with connections secured, air leak noted. Dressing clean, dry, and intact. Resp: Effort & Inspection: no respiratory distress Auscultation: diminished lung sounds diffuse Cardio: Rhythm: abnormal rhythm irregularly irregular Neuro: General: moves all extremities and no focal motor deficits Extrem: General: no clubbing, cyanosis or edema Psych: Affect: Anxious affect present Insight: Good insight present (Psych) Judgement: Fair judgement present (Psych) Objective Data Vital Signs Vital Signs: Vital Signs - 24 hr 11/01/20 12:00 11/01/20 14:00 11/01/20 14:11 Temperature Pulse Rate 102 H 92 98 Respiratory Rate 22 H 21 H 16 Blood Pressure 132/95 H 105/84 Pulse Oximetry 92 95 11/01/20 14:18 11/01/20 16:00 11/01/20 18:00 Temperature Pulse Rate 95 93 88 Respiratory Rate 14 21 H Blood Pressure 93/66 L Pulse Oximetry 97 96 11/01/20 19:33 11/01/20 19:36 11/01/20 19:40 Temperature Pulse Rate 97 87 Respiratory Rate 17 20 Blood Pressure Pulse Oximetry 97 11/01/20 20:00 11/01/20 22:00 11/02/20 00:00 Temperature 97.7 F 98.4 F Pulse Rate 97 78 72 Respiratory Rate 18 14 19 Blood Pressure 104/76 114/78 108/81 Pulse Oximetry 92 94 99 11/02/20 02:00 11/02/20 02:19 11/02/20 04:00 [place]
[2020-11-02] MEDS: POTASSIUM CHLORIDE 20 MEQ TABLET 40 MEQ PO (12:33)
[2020-11-02 12:50] LABS: Magnesium 1.9 mg/dL (1.6-2.3)
--- NOTE | 2020-11-02 12:50 | PCDIET ---
Nutrition Follow-Up Complete: Nutrition Diagnosis: Inadequate oral intake at present related to esophageal obstruction as evidenced by NPO. Nutrition Goal: Patient to meet estimated nutritional needs. Goal in progress. Intakes have been 50-75% of meals on regular diet. Patient reports tolerating well, and also feels patient is doing well. Patient has not yet tried Ensure Compact, but plans to try drinking it between meals. Discussed ways to optimize intake while on heart healthy lifestyle. See Nutritional Teaching for additional details. Would also recommend low sodium diet while in house. Last recorded weight is 58.3 kg which is down from last review. Bowel Motility: No documented BM as of yet. Labs Reviewed: RBC (4.44), BUN (24), Na (134), Alb (3.4), BNP (1140) Meds Noted: Orange, Albuterol, Norvasc, Cozaar, Toprol XL, Protonix, Zosyn, KCl Additional Notes: No documented skin breakdown. Will continue to monitor with same goal. Nutrition Monitoring and Evaluation: Follow up every 5 days.
[2020-11-02] MEDS: IPRATROPIUM BR 0.02% INH SOLN 0.5 MG/2.5 ML VIAL INHALATION ×2 (15:47→21:28)
--- NOTE | 2020-11-02 17:47 | PM.IMPN ---
Progress Note: A&P Assessment and Plan (1) Pneumothorax on right: Onset Date: ~10/31/20 Code(s): J93.9 - Pneumothorax, unspecified Status: Acute Assessment and Plan: spontaneous pneumothorax on the right. Status post chest tube placement patient had no air leak today on his chest tube. after discussion with pulmonology, chest tube was changed water-seal will continue to monitor and repeat x-ray. will proceed to clamping the chest tube in am continue chest tube management at this time (2) Acute respiratory failure: Code(s): J96.00 - Acute respiratory failure, unspecified whether with hypoxia or hypercapnia Status: Acute Assessment and Plan: oxygen requirement on high flow continue bronchodilators for COPD repeat BNP level IS (3) Esophageal obstruction: Code(s): K22.2 - Esophageal obstruction Status: Acute Assessment and Plan: status post EGD and removal (4) Aspiration of food: Code(s): T17.920A - Food in respiratory tract, part unspecified causing asphyxiation, initial encounter Status: Acute Assessment and Plan: patient was evaluated by speech therapy yesterday and they did not notice any abnormality. Patient himself and his denies any significant coughing after eating or drinking food at home status post bronchoscopy in which large amount of secretions were removed (5) Gastritis: Onset Date: Unknown Code(s): K29.70 - Gastritis, unspecified, without bleeding Status: Acute Assessment and Plan: continue PPI (6) Aspiration pneumonia: Onset Date: Unknown Code(s): J69.0 - Pneumonitis due to inhalation of food and vomit Status: Acute Assessment and Plan: continue Zosyn and oxygen supplementation (7) COPD exacerbation: Onset Date: Unknown Code(s): J44.1 - Chronic obstructive pulmonary disease with (acute) exacerbation Status: Acute Assessment and Plan: on bronchodilators Counselled to quit smoking Nicotine patch provided to pt but poorly tolerated and discontinued (8) Acute exacerbation of CHF (congestive heart failure): Code(s): I50.9 - Heart failure, unspecified Status: Acute Assessment and Plan: BNP elevated on presentation and patient was given Lasix echocardiogram reviewed Summary 1. Complete two-dimensional, color flow and Doppler transthoracic echocardiogram is performed. 2. Left ventricular size and systolic function are normal with no regional wall motion abnormalities with an estimated ejection fraction of 65-70%. Moderate LVH is present. Diastolic function is indeterminate. 3. Right ventricular chamber dimension is moderately enlarged with normal systolic function. 4. Right atrial chamber dimension is moderately enlarged. 5. Left atrial chamber dimension is mildly enlarged. 6. There is mild tricuspid valve regurgitation. 7. Moderate pulmonary hypertension, estimated pulmonary arterial systolic pressure is 60 mmHg. 8. Atrial fibrillation. (9) HTN (hypertension): Qualifiers: Hypertension type: unspecified Qualified Code(s): I10 - Essential (primary) hypertension Code(s): I10 - Essential (primary) hypertension Status: Acute Assessment and Plan: continue metoprolol losartan and Norvasc (10) COPD (chronic obstructive pulmonary disease): Qualifiers: COPD type: unspecified COPD Qualified Code(s): J44.9 - Chronic obstructive pulmonary disease, unspecified Code(s): J44.9 - Chronic obstructive pulmonary disease, unspecified Status: Acute Assessment and Plan: cont duonebs defer management to pulm (11) New onset a-fib: Code(s): I48.91 - Unspecified atrial fibrillation Status: Acute Assessment and Plan: seen during ECHO, currently in sinus rhythm w tachycardia (12) Urinary (tract) obstruction: C
[2020-11-02] MEDS: HYDROcodone/acetaminophen (*CRX) 5-325 MG TABLET 1 TAB PO (21:10)
[2020-11-03] VITALS (17 sets, daily range): BP systolic 101–163; BP diastolic 71–95; PULSE 68–104; RESP 11–30; TEMP 36.5–36.6; O2SAT 78–100
--- NOTE | 2020-11-03 04:01 | PC.NURSE ---
Chest tube clamped and radiology will be up to do chest x-ray at 0500
[2020-11-03 04:57] LABS: Hematocrit 44.9 % (42.0-52.0); Hemoglobin 14.7 g/dL (14.0-18.0); Mean Corpuscular HGB Conc 32.7 g/dl (32-36); Mean Corpuscular Hemoglobin 33.6 pg (26-34); Mean Corpuscular Volume 102.5 fl (80-100); Platelet Count Result 195 k/mm3 (150-375); Red Blood Count 4.38 M/mm3 (4.6-6.20); Red Cell Distribution Width 13.4 % (11.5-14.5); White Blood Count 6.7 K/mm3 (4.5-10.0)
[2020-11-03 05:10] LABS: Anion Gap 6 mmol/L (8-16); Blood Urea Nitrogen 21 mg/dL (9-20); Carbon Dioxide 34 mmol/L (22-30); Chloride 93 mmol/L (98-107); Estimated CRCL calculation 67 ml/min; Estimated Glomerular Filt Rate > 60; Glucose 97 mg/dL (65-110); Magnesium 1.8 mg/dL (1.6-2.3); Potassium 3.9 mmol/L (3.4-5.0); Sodium 133 mmol/L (137-145)
--- NOTE | 2020-11-03 07:33 | PM.PNPUL ---
Progress Note: A&P Assessment and Plan (1) Aspiration of food: Code(s): T17.920A - Food in respiratory tract, part unspecified causing asphyxiation, initial encounter Status: Acute Assessment and Plan: 10/31 Patient with a history of GOLD grade 4 group B COPD with PFT on 07/21/20 with FEV1 0.73 L (21% predicted), air trapping (RV 5.97 L, 252% predicted), hyperinflation (FRC 7.62 L, 202% predicted), DLCO 23% predicted and severe panlobular emphysema on CT scan on 10/31/20 was in his usual state of health when he choked on food developing respiratory distress afterwards. Patient has an esophageal obstruction and also debris in his right lower lobe. The plan is to perform an emergent EGD per the GI team followed by a bronchoscopy by myself to assess the airways for aspirated food. Currently patient is in no respiratory distress as long as he applies frequent Yankauer suctioning to his mouth. Prior to this choking event he had no evidence of a COPD exacerbation. After the bronchoscopy I will initiate albuterol and ipratroprium nebulizers. At this time I do not think he needs inhaled or systemic steroids. There is evidence of focal infiltrate in the right middle lobe and the patient is currently on Zosyn. Patient states that he does not use oxygen at home and currently he is on 3 L nasal cannula with saturations of 92%. Goal saturation 90-94. Discussed with hospitalist, GI, and endoscopy coordinator. Later in day intubated (difficult per anesthesia) and had EGD with removal and advancement of esophageal food obstruction and then bronchoscopy with aspiration of secretions RLL and left lung without any evidence of foreign body in airway. Extuated and hypoxia and placed on BiPAP in recovery without my knowledge and CXR then with large right pneumothorax. Small bore CT placed by surgery with reexpansion of right lung and transferred to ICU on 6 L NC. 11/01 No evidence of foreign body by bronchoscopy, suctioned secretions. Washing with few Epithelial cells, moderate white blood cells, mixed bacterial shari. On zosyn for possible aspiration pneumonia. Afebrile. No evidence of COPD exacerbation, will place on albuterol and ipratroprium nebs. Right pneumothorax identified post procedure. Etiology includes procedural, BiPAP use, positive pressure ventilation from procedure. CT oin place with small medial apical pneumo today on 25 cm suction. Surgery managing. Continued air leak today. Spoke to automatic hemmer and patient's on speaker phone and updated patient and . LE dopplers negative. Echo with normal LVEF 65-70%, LVH, moderately enlarged RA and RV with normal RV systolic function and PASP 60. 11/02 Patient denies chest pain. Current saturations 97% on 7 L nasal cannula. No wheezes on exam continue albuterol and ipratroprium nebs. Afebrile and WBC 9.6K on zosyn. Chest tube with no air leak this morning with deep breaths or with cough. Chest x-ray with no identified pneumothorax. Discussed with automatic hemmer and placed chest tube on water seal. Speaker phone updates with and patient. 11/03 Patient without complaints. Current sats 95% on 5 L. Was on 15 L overnight now on 5 L. No wheezes on exam on albuterol and ipratropriumn nebs Q 6. WBC 6.7, afebrile on zosyn. CT clamped for one hour prior to morning CXR and CXR demonstrates small R basilar pneumothorax. Given severity of his panlobular emphysema and continued pneumothorax now for 65 hours, I recommend transfer to facility for consultation by thoracic surgery. I will resume in-patient follow up on 11/06. Subjective Date/time seen: 11/03/20 07:33 Interval history: Date/time seen: 11/02/20 08:49 Interval history: 10/31 This is a new Pulmonary consultation for COPD with hypoxemic respiratory failure 65-year-old male with a history of hypertension, TIA, peptic ulcer disease, left internal carotid artery occlusion in 06/26/2012 with tobacco use and GOLD grade 4 group B COPD with F
[2020-11-03] MEDS: IPRATROPIUM BR 0.02% INH SOLN 0.5 MG/2.5 ML VIAL INHALATION ×2 (07:47→14:24)
[2020-11-03] MEDS: ALBUTEROL SULFATE NEB 2.5 MG/0.5 ML INH INHALATION ×2 (07:47→14:24)
[2020-11-03] MEDS: TAMSULOSIN HCL 0.4 MG CAPSULE PO (09:39)
[2020-11-03] MEDS: METOPROLOL SUCCINATE EXT REL 50 MG TABCR BY MOUTH (09:39)
[2020-11-03] MEDS: amLODIPine BESYLATE 5 MG TABLET BY MOUTH (09:39)
[2020-11-03] MEDS: LOSARTAN POTASSIUM 100 MG TABLET PO (09:39)
[2020-11-03] MEDS: PANTOPRAZOLE 40 MG TABLET PO (09:39)
[2020-11-03] MEDS: ENOXAPARIN 40 MG/0.4 ML SYRINGE SUB-Q (09:40)
--- NOTE | 2020-11-03 09:53 | PM.PNGS ---
Progress Note: A&P Assessment and Plan (1) Pneumothorax on right: Onset Date: ~10/31/20 Code(s): J93.9 - Pneumothorax, unspecified Status: Acute Assessment and Plan: This is the main reason for our consultation. Chest tube placed on 10/31 for a large right pneumothorax. Yesterday, the patient had an small air leak on exam while the Chest tube was to water seal. Chest x-ray today showed a small Rt apical pneumothorax with the CT having been clamped for 1 hr.. Pulmonology saw the patient this morning and did see a continuing air leak, so they placed the chest tube to water seal and back to 20 cm of suction and I agree. A small air leak is noted on my exam today also. Will keep him on water seal and suction and repeat chest x-ray tomorrow morning again if pt not transferred in the interim. I agree that if we can transfer him to a thoracic surgeon who may be able to do thoracoscopy and stapling of the apical blebs he may benefit from this in the long-term. This was discussed with the patient but he did not seem to understand fully. Dr. Pierre will discuss it further with the patient's and they will be working on transfer to a thoracic surgeon at a nearby tertiary care center. I am in agreement with this . (2) Aspiration pneumonia: Onset Date: Unknown Code(s): J69.0 - Pneumonitis due to inhalation of food and vomit Status: Acute Assessment and Plan: Food bolus removed by GI endoscopically with no findings of stricture. Bronchoscopy showed no foreign body but extensive secretions on the right. Chest x-ray showing bilateral infiltrates. On IV Zosyn. Pulmonology following. (3) Gastritis: Onset Date: Unknown Code(s): K29.70 - Gastritis, unspecified, without bleeding Status: Acute Assessment and Plan: On PPI (4) COPD exacerbation: Onset Date: Unknown Code(s): J44.1 - Chronic obstructive pulmonary disease with (acute) exacerbation Status: Acute Assessment and Plan: see pulmology notes. Additional Plan I have discussed patient's situation with both Dr. Rios from pulmonology and Dr. Pierre from the laundry operator service. Subjective Subjective Date/Time Seen: 11/03/20 09:53 Post Op day: 3 (S/P CT placement on the Rt.) Patient reports: no new complaints Interval history: Nurse reports Ct back on suction since there was a small Rt. pneumo on the AM CXR. after clamping the CT 1 hr. before today's CXR. Review of Systems Review of Systems: All systems reviewed & are unremarkable except as noted in HPI and below Constitutional: Constitutional: Reports no additional constitutional complaints ENT: Reports other (Mucous Membranes moist.) Cardiovascular: Cardiovascular: Denies dyspnea Respiratory: Respiratory: Reports no additional respiratory complaints, Denies change in phlegm color, Denies pain on inspiration and Denies dyspnea Musculoskeletal: Musculoskeletal: Reports other (No calf swelling or edema) Integumentary/Breasts: Skin/Breast: Reports system reviewed and no additional complaints, except as docu Exam Const: General: cooperative, no acute distress, alert, awake and anxious Orientation/consciousness: patient oriented x3 HENMT: Mouth: Yes moist mucous membranes Neck: Neck: normal visual inspection Chest: Chest palpation & inspection: normal inspection of the chest and no crepitus Other: Right chest tube to water seal and 20 cm of suction with connections secured, air leak still noted. Dressing clean, dry, and intact. Tube appropriately sealed/secured. Resp: Effort & Inspection: normal respiratory effort and no respiratory distress Auscultation: clear to auscultation bilaterally, wheezes ( At right mid lung field) scattered wheezes and right lower and diminished lung sounds diffuse Cardio: Jugular venous distension: no JVD Rate: regular rate Rhythm: regular rhythm and abnormal rhythm irregularly irregular GI:
--- NOTE | 2020-11-03 11:04 | WPDINTPN ---
Progress Note: A&P Assessment and Plan (1) Pneumothorax on right: Onset Date: ~10/31/20 Code(s): J93.9 - Pneumothorax, unspecified Status: Acute Assessment and Plan: spontaneous pneumothorax on the right. Status post chest tube placement Patient chest tube was placed on water-seal yesterday and repeat chest x-ray did not show any pneumothorax. His chest tube was clamped this morning but repeat chest x-ray showed pneumothorax. Chest tube was placed back on suction. continue chest tube management at this time pulmonary recommends surgical evaluation. I called and spoke to [facility] transfer line regarding transfer for thoracic surgery evaluation. Provided all the information regarding patient and waiting for call back (2) Acute respiratory failure: Code(s): J96.00 - Acute respiratory failure, unspecified whether with hypoxia or hypercapnia Status: Acute Assessment and Plan: patient was on BiPAP earlier but now improved and currently saturating on nasal cannula with no respiratory distress continue bronchodilators for COPD patient was given Lasix yesterday IS (3) Esophageal obstruction: Code(s): K22.2 - Esophageal obstruction Status: Acute Assessment and Plan: status post EGD and removal (4) Aspiration of food: Code(s): T17.920A - Food in respiratory tract, part unspecified causing asphyxiation, initial encounter Status: Acute Assessment and Plan: patient was evaluated by speech therapy yesterday and they did not notice any abnormality. Patient himself and his denies any significant coughing after eating or drinking food at home status post bronchoscopy in which large amount of secretions were removed (5) Gastritis: Onset Date: Unknown Code(s): K29.70 - Gastritis, unspecified, without bleeding Status: Acute Assessment and Plan: continue PPI (6) Aspiration pneumonia: Onset Date: Unknown Code(s): J69.0 - Pneumonitis due to inhalation of food and vomit Status: Acute Assessment and Plan: continue Zosyn and oxygen supplementation (7) COPD exacerbation: Onset Date: Unknown Code(s): J44.1 - Chronic obstructive pulmonary disease with (acute) exacerbation Status: Acute Assessment and Plan: on bronchodilators Counselled to quit smoking Nicotine patch provided on pt's request (8) Acute exacerbation of CHF (congestive heart failure): Code(s): I50.9 - Heart failure, unspecified Status: Acute Assessment and Plan: BNP elevated on presentation and patient was given Lasix. Partly on hold echocardiogram reviewed (9) HTN (hypertension): Qualifiers: Hypertension type: unspecified Qualified Code(s): I10 - Essential (primary) hypertension Code(s): I10 - Essential (primary) hypertension Status: Acute Assessment and Plan: continue metoprolol losartan but will hold Norvasc since blood pressure is on the soft side (10) Arrhythmia: Code(s): I49.9 - Cardiac arrhythmia, unspecified Status: Acute Assessment and Plan: patient appears to have sinus arrhythmia versus could be a sees on the telemetry check 12 lead EKG shows sinus rhythm with frequent PACs potassium replaced Mag level acceptable Additional Plan DVT prophylaxis - Lovenox Stress ulcer prophylaxis - PPI Nutrition - Regular Diet Code Status - Full Code Transfer out of ICU today Subjective Date/time seen: 11/03/20 11:04 No major events overnight. Afebrile. Patient chest tube was placed on water-seal yesterday and repeat chest x-ray did not show any pneumothorax. His chest tube was clamped this morning but repeat chest x-ray showed pneumothorax. Chest tube was placed back on suction. Patient himself feels fine and does not have any new complaints. States his breathing cough and pain is better. Review for all the sy
[2020-11-03 14:00] LABS: EDCOVIDSCREEN Negative (Negative)
--- NOTE | 2020-11-03 19:52 | PM.TDS ---
Transfer Discharge Sum: Prov Provider Date of admission: 10/31/20 10:39 Primary care physician: Marycarmen Isaac MD Admitting clinician: Jaguar Downs MD Consults: 10/31/20 Consult to Physician Routine Comment: Consulting Provider: Bobby Mcdowell Reason for consultation: Impacted food in esophagus Has provider been notified: No Consult to Physician Routine Comment: Consulting Provider: Aly Victor Reason for consultation: right pneumothorax Has provider been notified: Yes Consult to Physician Routine Comment: called dr. polk with consult information Consulting Provider: Gustavo Polk call out clerk/MD group to consult: Pulmonary Reason for consultation: resp distress after choking food. significant secretions Has provider been notified: Yes DS: Admitting Diagnosis Admitting Diagnosis (1) Acute respiratory failure: Code(s): J96.00 - Acute respiratory failure, unspecified whether with hypoxia or hypercapnia Status: Acute Assessment and Plan: ADMIT TO IMU BIPAP NEEDED BREATHING TREATMENTS SYSTEMIC STEROID CONTINUOUS PULSE OX NO CHANGE IN SPUTUM QUALITY (2) Acute exacerbation of CHF (congestive heart failure): Code(s): I50.9 - Heart failure, unspecified Status: Acute Assessment and Plan: COR PULMONALE 2D ECHO IN THE MORNING VENOUS DOPPLER BILATERAL LOWER EXTREMITY INTAKE AND OUTPUT DIURESIS (3) HTN (hypertension): Qualifiers: Hypertension type: unspecified Qualified Code(s): I10 - Essential (primary) hypertension Code(s): I10 - Essential (primary) hypertension Status: Acute Assessment and Plan: CONTINUE LOSARTAN CONTINUE METOPROLOL CONTINUE HYDRALAZINE CONTINUE AMLODIPINE (4) History of TIA (transient ischemic attack): Code(s): Z86.73 - Personal history of transient ischemic attack (TIA), and cerebral infarction without residual deficits Status: Acute Assessment and Plan: ON ASPIRIN NOT ON A STATIN (5) Occlusion of left internal carotid artery: Code(s): I65.22 - Occlusion and stenosis of left carotid artery Status: Acute Assessment and Plan: CONTINUE TO MONITOR DS: Discharge Diagnosis Discharge Diagnosis (1) New onset a-fib: Code(s): I48.91 - Unspecified atrial fibrillation Status: Acute (2) Arrhythmia: Code(s): I49.9 - Cardiac arrhythmia, unspecified Status: Acute (3) Urinary (tract) obstruction: Code(s): N13.9 - Obstructive and reflux uropathy, unspecified Status: Acute (4) Pneumothorax on right: Onset Date: ~10/31/20 Code(s): J93.9 - Pneumothorax, unspecified Status: Acute (5) Aspiration pneumonia: Onset Date: Unknown Code(s): J69.0 - Pneumonitis due to inhalation of food and vomit Status: Acute (6) Gastritis: Onset Date: Unknown Code(s): K29.70 - Gastritis, unspecified, without bleeding Status: Acute (7) COPD exacerbation: Onset Date: Unknown Code(s): J44.1 - Chronic obstructive pulmonary disease with (acute) exacerbation Status: Acute (8) Esophageal obstruction: Code(s): K22.2 - Esophageal obstruction Status: Acute (9) Aspiration of food: Code(s): T17.920A - Food in respiratory tract, part unspecified causing asphyxiation, initial encounter Status: Acute (10) Dysphagia: Code(s): R13.10 - Dysphagia, unspecified Status: Acute (11) Acute respiratory failure: Code(s): J96.00 - Acute respiratory failure, unspecified whether with hypoxia or hypercapnia Status: Acute (12) Acute exacerbation of CHF (congestive heart failure): Code(s): I50.9 - Heart failure, unspecified Status: Acute (13) HTN (hypertension): Qualifiers: Hypertension type: unspecified Qualified Code(s): I10 - Essential (primary) hypertension Code(s): I10 - Essenti
== END 2020-11-03 17:15 | disposition short-term general hospital (02) | DRG 393 ==
LOC: ANHED 19:41 → ANHIMU 22:07 → ANHICU 11-01 21:24 → ANHIMU 11-07 10:45
PROVIDERS: Internal Medicine; Internal Medicine Gastroenterology; Internal Medicine Pulmonary Disease; Admitting Provider Internal Medicine; Emergency Provider Emergency Medicine; PCP Family Medicine; Visit Provider Hospitalist
PROC: 0DJ08ZZ Inspection of Upper Intestinal Tract, Via Natural or Artificial Opening Endoscopic (ICD-10-PCS; CPT 43235; principal; 2020-10-31 13:00)
PROC: 0BJ08ZZ Inspection of Tracheobronchial Tree, Via Natural or Artificial Opening Endoscopic (ICD-10-PCS; CPT 31622; 2020-10-31 13:00)
DX: T18.120A Food in esophagus causing compression of trachea, initial encounter (principal); J96.00 Acute respiratory failure, unspecified whether with hypoxia or hypercapnia; J69.0 Pneumonitis due to inhalation of food and vomit; K29.71 Gastritis, unspecified, with bleeding; J95.811 Postprocedural pneumothorax; Z20.822 Contact with and (suspected) exposure to COVID-19; I11.0 Hypertensive heart disease with heart failure; I50.9 Heart failure, unspecified; J43.1 Panlobular emphysema; Z79.82 Long term (current) use of aspirin; Z86.73 Personal history of transient ischemic attack (TIA), and cerebral infarction without residual deficits; G25.2 Other specified forms of tremor; I65.22 Occlusion and stenosis of left carotid artery; Z87.11 Personal history of peptic ulcer disease; F17.210 Nicotine dependence, cigarettes, uncomplicated; R91.1 Solitary pulmonary nodule; R13.10 Dysphagia, unspecified; X58.XXXA Exposure to other specified factors, initial encounter; Y93.9 Activity, unspecified; Y92.9 Unspecified place or not applicable; Y99.9 Unspecified external cause status; K22.2 Esophageal obstruction; K29.70 Gastritis, unspecified, without bleeding; I49.9 Cardiac arrhythmia, unspecified; R33.9 Retention of urine, unspecified; I48.91 Unspecified atrial fibrillation; N13.9 Obstructive and reflux uropathy, unspecified
CPT/HCPCS: 36415; 36600; 70490; 71045; 71250; 74220; 80048; 80053; 82375; 82805; 83050; 83735; 83880; 84484; 85025; 85027; 85610; 85730; 87070; 87081; 87205; 87426; 92610; 93005; 93306; 93970; 94002; 94003; 94640; 96374; 96375; 96376; 99291; A9270; C1729; C9803; G0378; J1650; J1940; J2543; J7120

== ENCOUNTER 2021-07-12 11:10 | Inpatient (IN) | payer MEDICARE, SELFPAY ==
[2021-07-12] VITALS (10 sets, daily range): BP systolic 139–182; BP diastolic 74–112; PULSE 59–90; RESP 16–36; TEMP 36.1–36.7; O2SAT 93–97
--- NOTE | ~2021-07-12 | XR_ITS ---
EXAMINATION: XR chest 1V portable DATE: 07/12/2021 12:41 INDICATION: Dyspnea TECHNIQUE: frontal view of the chest was obtained. Second frontal view was obtained with nipple marke rs. COMPARISON: Chest radiograph dated 11/03/2020 FINDINGS: Severe emphysema with increased lucency and architectural distortion in the bilateral mid and lower l jb zones. Increased interstitial pattern in the bilateral lower lung zones likely combination of bro nchovascular crowding and atelectasis, potentially with superimposed mild pulmonary edema or less lik zhane pneumonia. Relatively symmetric nodular opacities projecting along the cephalad margin of the rosalinda ateral anterior sixth ribs which colocalized with nipple markers and repeat imaging. The cardiomedias tinal silhouette is within normal limits for AP technique. IMPRESSION: 1. Severe emphysema with increased interstitial pattern in the bilateral lower lung zones consistent with atelectasis and bronchovascular crowding, potentially with superimposed mild pulmonary edema or less likely pneumonia. Reviewed, dictated and finalized at location B. IMPRESSION: 1. Severe emphysema with increased interstitial pattern in the bilateral lower lung zones consistent with atelectasis and bronchovascular crowding, potentiall y with superimposed mild pulmonary edema or less likely pneumonia.
--- NOTE | 2021-07-12 11:38 | ED.RECABL ---
HPI - Recheck/Abnormal Lab/Rx General Chief Complaint: Recheck/Abnormal Lab/Rx Stated Complaint: low na Time Seen by Provider: 07/12/21 11:18 Source: patient History of Present Illness HPI narrative: Patient presents for hyponatremia. Patient was at his primary care doctor yesterday had yearly blood work drawn the lab called his primary care doctor and patient had a critically low sodium and he was referred to the ER for evaluation. Patient has no acute complaints. Denies any lightheadedness or dizziness patient reports chronic shortness of breath not any acute changes. Reports might be a slight decrease in his appetite again feels like his usual. Denies any nausea or diarrhea Related Data Home Medications Medication Instructions Recorded Confirmed acetaminophen 500 mg capsule 1,000 mg PO Q6H PRN cap 11/17/20 07/11/21 furosemide 40 mg tablet 40 mg PO DAILY PRN tablet 05/30/21 07/11/21 Allergies Allergy/AdvReac Type Severity Reaction Status Date / Time No Known Allergies Allergy Verified 07/12/21 14:33 Review of Systems Review of Systems: CONSTITUTIONAL: Denies fever, chills, or sweats. EYES: Denies visual changes, redness, or discharge. ENT: Denies rhinorrhea, congestion, sore throat, or otalgia. CARDIOVASCULAR: Denies chest pain, palpitations, or edema. RESPIRATORY: Denies cough or acute dyspnea. GASTROINTESTINAL: Denies abdominal pain, nausea, vomiting, or diarrhea. GENITOURINARY: Denies dysuria or hematuria. SKIN: Denies rash or itching. MUSCULOSKELETAL: Denies back pain, joint pain, or myalgia. NEUROLOGIC: Denies headache, numbness, dizziness, or weakness. PSYCHIATRIC: Denies anxiety or depression. All systems reviewed & are unremarkable except as noted in HPI and below [facility] Past Medical History Medical History Acute exacerbation of CHF (congestive heart failure) Adenomatous colon polyp Anxiety Aspiration pneumonia (Unknown) COPD (chronic obstructive pulmonary disease) Esophageal obstruction History of TIA (transient ischemic attack) HTN (hypertension) Intention tremor New onset a-fib Occlusion of left internal carotid artery Pneumothorax on right (~10/31/20) PUD (peptic ulcer disease) TIA (transient ischemic attack) 2013 Surgical History Surgical History History of tonsillectomy Family History Family History (Updated 07/12/21 @ 14:34 by Cass Eubanks RN) Father Carcinoma of colon Mother Hypertension Diabetes mellitus Mother No problems noted. Social History Social History Smoking packs per day: 1 Smoking cigarettes per day: 20.0 Years smoked: 45 Smoking pack-years: 45.00 Smoking status: Former smoker Alcohol intake: current Drinks per week: 28 Substance use: never Substance use type: does not use Gender identity (if verbalized by the patient): Male Spiritual care concerns: No Exam Narrative: GENERAL: Well-appearing, well-nourished, and in no acute distress. HEAD: Normocephalic, atraumatic. EYES: PERRLA and EOMI. ENT: Nares clear, no rhinorrhea or epistaxis. Mucous membranes moist. NECK: Supple. No masses. No JVD EXTREMITIES: Normal range of motion. No edema. SKIN: Warm, dry, no rash. NEURO: No focal deficits. Alert and oriented x3. PSYCH: Normal mood and affect. Course Reevaluation(s) Reevaluation #1: Work-up thus far reviewed with patient. Patient is found to be hyponatremic he has no acute complaints however given the severity of his hyponatremia will be admitted for sodium replacement. Renee has had hyponatremia in the past but never this low. Page placed to hospitalist team Date: 07/12/21 Time: 12:39 Consultations Consultation #1: Case discussed with nephrology Dr. Patel who will follow along. Date: 07/12/21 Time: 12:59 Vital Signs Vital signs: Vital Signs
[2021-07-12 11:54] LABS: Basophils Percent Auto 0.4 % (0.2-1.2); Eosinophils Absolute Auto 0.1 K/mm3 (0-0.3); Hematocrit 40.7 % (42.0-52.0); Hemoglobin 13.8 g/dL (14.0-18.0); Immature Granulocyte Absolute 0.02 K/mm3 (0.00-0.031); Immature Granulocyte Percent A 0.4 % (0-0.5); Lymphocytes Absolute Auto 0.62 K/mm3 (0.9-3.2); Lymphocytes Percent Auto 12.3 % (18.3-44.2); Mean Corpuscular HGB Conc 33.9 g/dl (32-36); Mean Corpuscular Hemoglobin 33.9 pg (26-34); Mean Platelet Volume 8.1 fl (7.4-10.4); Monocytes Absolute Auto 0.7 K/mm3 (0.1-0.6); Monocytes Percent Auto 13.1 % (2.6-8.5); Neutrophils Absolute Auto 3.7 K/mm3 (1.3-6.7); Neutrophils Percent Auto 72.8 % (45.5-73.1); Platelet Count Result 206 k/mm3 (150-375); Red Blood Count 4.07 M/mm3 (4.6-6.20); Red Cell Distribution Width 13.2 % (11.5-14.5)
[2021-07-12 12:10] LABS: Alanine Aminotransferase 21 U/L (4-50); Albumin Level 3.7 g/dL (3.5-5.1); Alkaline Phosphatase 81 U/L (38-126); Anion Gap 3 mmol/L (8-16); Aspartate Amino Transferase 45 U/L (17-59); Blood Urea Nitrogen 7 mg/dL (9-20); Calcium 8.3 mg/dL (8.4-10.2); Carbon Dioxide 31 mmol/L (22-30); Chloride 83 mmol/L (98-107); Estimated CRCL calculation 94 ml/min; Estimated Glomerular Filt Rate > 60; Glucose 147 mg/dL (65-110); Potassium 4.5 mmol/L (3.4-5.0); Sodium 117 mmol/L (137-145)
[2021-07-12] MEDS: SODIUM CHLORIDE 0.9% IV 1,000 ML 999 ML IV CONT (12:35)
--- NOTE | 2021-07-12 13:40 | PM.CNNEP ---
Assessment and Plan Additional Plan 1. the patient has hyponatremia. He has chronic hyponatremia with a very mild reduction of serum sodium. There are 2 causes for this I think. COPD can do this. Also he is on bupropion. He has acute hyponatremia as well. It is unclear exactly what caused this. He does not seem to have changed much in the last few weeks. Perhaps he is just drinking more fluid lately than he used to. The bupropion is not a new medication. And his COPD is certainly not a new issue. There is no sign or symptoms of dehydration. There other causes of hyponatremia as well: SPARES SCHEDULER causes: He has no signs or symptoms of this. Cancer can do this. He has no history of cancer however. Medications can do this as above. Hormonal causes. Will check a TSH and a Cortisol level. Pseudo hyponatremia. We will check serum and urine osmolality and also will check an SPEP. For now he is asymptomatic. Will put him on a fluid restriction as the only therapy so far. We talked about the possibility of decreasing the Wellbutrin but the patient is worried about his depression. There are not many other choices for antidepressants that do not reduce the sodium so I think at this point we will just work around the Wellbutrin. 2. COPD. He is getting supportive care. 3. Hypertension. His blood pressure is under pretty good control. 4. Vitamin-D deficiency. He is on ergocalciferol. 5. Congestive heart failure? I am not sure of the nature of this. He seems euvolemic now. 6. BPH the patient is on tamsulosin. We can check a bladder scan to make sure he does not have any obstruction. History of Present Illness Reason for Consult Consult date: 07/12/21 Chief Complaint Chief complaint: Hyponatremia History of Present Illness Narrative: Chano is a very pleasant 66-year-old gentleman who has multiple medical problems including severe COPD, chronic hyponatremia with sodiums that run between 130 and 136, congestive heart failure, anxiety, esophageal obstruction in the past, TIA in the past, hypertension, anxiety, depression, history of atrial fibrillation, peptic ulcer disease, spontaneous pneumothorax back in October. The patient has been at home doing pretty well. He eats and drinks okay. He does eat 4 or 5 times per day because he can't eat very much at 1 sitting or else he will get short of breath. He does drink quite a bit of fluid. Next a glass or 2 of some liquid during each meal plus he drinks some between times as well. He thinks it probably adds up to about 100 oz per day. The patient went to the primary care physician's office yesterday just for a routine visit. At the time of the visit he was feeling fine. No nausea, vomiting, diarrhea, or change in medications. He had some routine blood work drawn in his sodium level was only 118 so he was sent to the emergency room today. The patient is not on narcotics. He is not on diuretics. He does have furosemide on his list however only takes that if he has a little swelling. This turned out to be once a month or less. He has not taken it recently. He does not take a PPI. He is on bupropion and has been on this for a year or more. It is for depression, anxiety, and also to help him quit smoking. He has no history of cancer. No history of any SPARES SCHEDULER issues other than a TIA. He does have severe COPD. He has not had any issues with dehydration. Review of Systems Constitutional: Constitutional: Reports no additional constitutional complaints Eyes: Eyes: Reports no additional eye complaints ENT: Reports system reviewed and no additional complaints, except as documented Cardiovascular: Cardiovascular: Reports no additional cardiovascular complaints Respiratory: Respiratory: Reports no additional respiratory complaints Gastrointestinal: Gastrointestinal: Reports no additional gastrointestinal complaints Genitourinary: Genitourinary: Reports n
--- NOTE | 2021-07-12 14:06 | PM.IMHP ---
H&P: HPI History of Present Illness Date/Time: Patient was placed observation status for expected length of stay less than 23 hours for management, will plan to re-evaluate tomorrow for improvement. 07/12/21 14:06 Chief Complaint: Abnormal laboratories Narrative: Mr. Dubose is a 66-year-old gentleman who presented to the emergency room by direction of his primary care provider for abnormal laboratories. Patient states that he saw his primary care provider yesterday for anxiety and a checkup and had routine laboratories drawn. Upon evaluation by the patient's primary care provider it was noted his sodium was 118 in a.m. patient was called today and told to come to the hospital for further evaluation. Upon evaluation emergency room patient's laboratories were redrawn and his sodium was noted to be 117. Patient states up until today he has been feeling fine. He patient denies any abnormal shortness of breath. Patient states he does have chronic shortness of breath secondary to his severe COPD. Patient states he does wear oxygen at 2 and half to 3 L at home continuously. Patient denies any recent cough. Patient denies any recent sputum production or hemoptysis. Patient denies any lightheadedness, dizziness, syncopal, or near syncopal episodes. Patient denies any seizure activity or forgetfulness. Patient states he does have panic attacks easily for approximately last 9 months. Patient states he has a known history of hypertension, severe COPD, peptic ulcer disease, chronic left internal carotid artery occlusion, BPH, and TIA. Patient states that approximately 9 months ago he did a pneumothorax and was sent to an outside hospital to have a right thoracoscopic talc pleurodesis. Patient states since that time he has had panic attacks. Patient's discharge summary from [facility] does show that patient had mild hyponatremia noted while he was hospitalized there with a sodium level noted to be 131 on 11/10/2020. Patient states he does drink approximately 100 oz of water daily. Patient states he also does take Lasix approximately once to twice monthly for any edema he has. Patient states if he does take his Lasix it will be for 1-2 days. Patient states he did take Lasix last week for approximately 2 days. Review of Systems Review of Systems: A 12 point review of systems was completed patient all pertinent positive and negative per HPI the remainder are unremarkable. [facility] Past Medical History Medical History Acute exacerbation of CHF (congestive heart failure) Adenomatous colon polyp Anxiety Aspiration pneumonia (Unknown) COPD (chronic obstructive pulmonary disease) Esophageal obstruction History of TIA (transient ischemic attack) HTN (hypertension) Intention tremor New onset a-fib Occlusion of left internal carotid artery Pneumothorax on right (~10/31/20) PUD (peptic ulcer disease) TIA (transient ischemic attack) 2013 Surgical History Surgical History History of tonsillectomy Family History Family History Other Carcinoma of colon Hypertension Social History Social History Smoking packs per day: 1 Smoking cigarettes per day: 20.0 Years smoked: 45 Smoking pack-years: 45.00 Smoking status: Former smoker Tobacco type: cigarettes Alcohol intake: current Drinks per week: 28 Substance use: never Substance use type: does not use Gender identity (if verbalized by the patient): Male Spiritual care concerns: No Meds Home Medications and Allergies Home Medications Medication Instructions Recorded Confirmed Type acetaminophen 500 mg capsule 1,000 mg PO Q6H PRN cap 11/17/20 07/11/21 History fluticasone fur. 100 mcg-umeclid 1 inh INHALATION DAILY #60 ea 04/10/21
--- NOTE | 2021-07-12 14:20 | ADMGEN ---
This patient, Chano Dubose, was admitted to Medical Room 245-. Patient/family oriented to hospital policies and general routines including ID bracelet, bed and alarms, visiting hours, pain management, procedures, bathroom and other care routines, personal items, smoking policy, room service/diet, and visiting hours. Information on how to activate the Rapid Response Team has been discussed. Patient/Family are encouraged to report perceived risks to care and to ask questions if they do not understand what they are told or what they should do.
[2021-07-12] MEDS: SODIUM CHLORIDE 0.9% IV 1,000 ML 75 ML IV CONT (15:21)
[2021-07-12 15:54] LABS: Add Urine Microscopic? YES; Appearance Urine Clear (Clear); Bilirubin Urine Negative (Negative); Blood Urine 1+ (Negative); Color Urine Yellow (Yellow); Glucose Urine UA Negative (Negative); Ketones Urine Negative (Negative); Leukocyte Esterase Ur Negative LEU/UL (Negative); Mucus Urine Rare /lpf; Nitrate Urine Negative (Negative); Protein Urine Negative (Negative); RBC Urine 0-2 /hpf (0-2); Specific Grav Ur 1.005 (1.001-1.035); WBC Urine 0-3 /hpf
[2021-07-12 16:01] LABS: Creatinine Urine 29.3 mg/dL
[2021-07-12 16:02] LABS: Sodium Urine Random 29 meq/L
[2021-07-12] MEDS: ALPRAZolam (*CRX) 0.25 MG TABLET PO ×2 (16:25→21:52)
[2021-07-12] MEDS: busPIRone HCL 10 MG TABLET PO (16:25)
[2021-07-12] MEDS: hydrALAZINE HCL 20 MG/ML VIAL 10 MG IV PUSH (16:26)
[2021-07-12 17:32] LABS: Sodium 121 mmol/L (137-145)
--- NOTE | 2021-07-12 20:19 | PC.NURSE ---
PT EXPERIENCING EXTREME ANXIETY AND REQUESTED HIS TO STAY OVERNIGHT WITH HIM TO HELP HIS TEMPERAMENT. APPROVED BY X RAY SERVICE ENGINEER.
[2021-07-12 21:08] LABS: Sodium 122 mmol/L (137-145)
[2021-07-12] MEDS: ZOLPIDEM TARTRATE (*CRX) 5 MG TABLET PO (21:52)
[2021-07-13] VITALS (10 sets, daily range): BP systolic 124–180; BP diastolic 60–104; PULSE 71–85; RESP 14–20; TEMP 36.6–37.2; O2SAT 93–100; BMI 19.5
[2021-07-13 01:18] LABS: Sodium 121 mmol/L (137-145)
[2021-07-13 05:23] LABS: Basophils Percent Auto 0.6 % (0.2-1.2); Eosinophils Absolute Auto 0.1 K/mm3 (0-0.3); Eosinophils Percent Auto 1.2 % (0-4.4); Hematocrit 38.9 % (42.0-52.0); Hemoglobin 12.9 g/dL (14.0-18.0); Immature Granulocyte Absolute 0.03 K/mm3 (0.00-0.031); Immature Granulocyte Percent A 0.6 % (0-0.5); Lymphocytes Absolute Auto 0.77 K/mm3 (0.9-3.2); Lymphocytes Percent Auto 14.8 % (18.3-44.2); Mean Corpuscular HGB Conc 33.2 g/dl (32-36); Mean Corpuscular Hemoglobin 34.1 pg (26-34); Mean Corpuscular Volume 102.9 fl (80-100); Mean Platelet Volume 8.4 fl (7.4-10.4); Monocytes Absolute Auto 0.8 K/mm3 (0.1-0.6); Monocytes Percent Auto 15.2 % (2.6-8.5); Neutrophils Absolute Auto 3.5 K/mm3 (1.3-6.7); Neutrophils Percent Auto 67.6 % (45.5-73.1); Platelet Count Result 199 k/mm3 (150-375); Red Blood Count 3.78 M/mm3 (4.6-6.20); Red Cell Distribution Width 13.3 % (11.5-14.5); White Blood Count 5.2 K/mm3 (4.5-10.0)
[2021-07-13] MEDS: SODIUM CHLORIDE 0.9% IV 1,000 ML 75 ML IV CONT ×2 (05:37→19:23)
[2021-07-13] MEDS: ALPRAZolam (*CRX) 0.25 MG TABLET PO ×3 (05:39→21:52)
[2021-07-13 05:43] LABS: Alanine Aminotransferase 18 U/L (4-50); Albumin Level 3.4 g/dL (3.5-5.1); Alkaline Phosphatase 82 U/L (38-126); Anion Gap 4 mmol/L (8-16); Aspartate Amino Transferase 33 U/L (17-59); Bilirubin,Total 1.1 mg/dL (0.2-1.3); Blood Urea Nitrogen 7 mg/dL (9-20); Calcium 8.3 mg/dL (8.4-10.2); Carbon Dioxide 29 mmol/L (22-30); Chloride 90 mmol/L (98-107); Estimated CRCL calculation 94 ml/min; Estimated Glomerular Filt Rate > 60; Glucose 82 mg/dL (65-110); Phosphorus 3.7 mg/dL (2.5-4.5); Potassium 3.7 mmol/L (3.4-5.0); Sodium 123 mmol/L (137-145)
[2021-07-13 08:05] LABS: NT Pro B Type Natriuretic Pept 1720 pg/mL (5-100)
[2021-07-13] MEDS: METOPROLOL SUCCINATE EXT REL 50 MG TABCR PO (08:17)
[2021-07-13] MEDS: TAMSULOSIN HCL 0.4 MG CAPSULE PO (08:17)
[2021-07-13] MEDS: busPIRone HCL 10 MG TABLET PO ×3 (08:17→16:03)
[2021-07-13] MEDS: FOLIC ACID 1 MG TABLET PO (08:18)
[2021-07-13] MEDS: THIAMINE HCL 100 MG TABLET PO (08:18)
[2021-07-13] MEDS: FLUTICASONE/UMECLIDIN/VILANTER 100-62.5-25 MCG ELLIPTA 1 PUFF INHALATION (08:19)
[2021-07-13] MEDS: ENOXAPARIN 40 MG/0.4 ML SYRINGE SUB-Q (08:19)
--- NOTE | 2021-07-13 08:45 | P.PNIM_ITS ---
Progress Note: A&P Assessment and Plan (1) Hyponatremia: Code(s): E87.1 - Hypo-osmolality and hyponatremia Status: Acute Assessment and Plan: * Sodium 123 * sodium was 117 upon admission * Nephrology consulted thank you for your recommendation * Serial sodium trend frequently * Urine creatinine 29.3, serum osmolality pending, urine osmolality pending, urine sodium 29 * TSH 1.460 * Hold Wellbutrin as this can cause hyponatremia * It seems that BuSpar can also lower sodium levels * Trend labs * Fluid restriction in place, 1000ml per day * NACL 75ml/hr * ETOH is a problem as it seems that he has 28 drinks a day minimum, will further assess with osmolality and other labs (2) Anxiety: Code(s): F41.9 - Anxiety disorder, unspecified Status: Acute Assessment and Plan: * Continue home alprazolam 0.25mg PO BID, continue BuSpar for now * Trend moods * adjust therapy as indicated (3) COPD (chronic obstructive pulmonary disease): Qualifiers: COPD type: unspecified COPD Qualified Code(s): J44.9 - Chronic obstructive pulmonary disease, unspecified Code(s): J44.9 - Chronic obstructive pulmonary disease, unspecified Status: Acute Assessment and Plan: * Chronic respiratory failure as he wears 2.5-3LNC at home * Trend saturations * Continue home trelegy and albuterol * No need for steroids at this time * No exacerbation noted * Chest xray shows severe emphysema with increased interstitial pattern (4) HTN (hypertension): Qualifiers: Hypertension type: unspecified Qualified Code(s): I10 - Essential (primary) hypertension Code(s): I10 - Essential (primary) hypertension Status: Acute Assessment and Plan: * BP is elevated at 160/92 * Continue home metoprolol * Add amlodipine 5mg PO daily (5) Alcohol abuse: Code(s): F10.10 - Alcohol abuse, uncomplicated Status: Acute Assessment and Plan: * Looks like he consumes 28 drinks * CIWA protocol * Add Librium and Ativan for CIWA greater than 8 * Add folic acid and thiamine (6) Congestive heart failure: Code(s): I50.9 - Heart failure, unspecified Status: Acute Assessment and Plan: * Could be in acute exacerbation * ECHO from 10/2020 shows EF of 60-65% with undetermined diastolic dysfunction * Na is low * BNP 1720 * Repeat echo * Daily weight * Trend urine output * If he is in exacerbation it would be diastolic heart failure from the information that it available * Chest xray also eluded to pulmonary edema as well * He does take furosemide at home, on hold as this does cause hyponatremia (7) BPH (benign prostatic hyperplasia): Code(s): N40.0 - Benign prostatic hyperplasia without lower urinary tract symptoms Status: Acute Assessment and Plan: * Complains to not being able to urinate * Bladder scan PRN * Continue home Flomax * Trend urine output * consider adding finasteride Time Spent With Patient Time with patient: Greater than 35 minutes Subjective Date/time seen: 07/13/21 08:45 Interval history: 07/12/21 14:06 Narrative: Mr. Dubose is a 66-year-old gentleman who presented to the emergency room by direction of his primary care provider for abnormal laboratories. Patient states that he saw his primary care provider yesterday for a
--- NOTE | 2021-07-13 08:45 | PM.IMPN ---
Progress Note: A&P Assessment and Plan (1) Hyponatremia: Code(s): E87.1 - Hypo-osmolality and hyponatremia Status: Acute Assessment and Plan: Sodium 123 sodium was 117 upon admission Nephrology consulted thank you for your recommendation Serial sodium trend frequently Urine creatinine 29.3, serum osmolality pending, urine osmolality pending, urine sodium 29 TSH 1.460 Hold Wellbutrin as this can cause hyponatremia It seems that BuSpar can also lower sodium levels Trend labs Fluid restriction in place, 1000ml per day NACL 75ml/hr ETOH is a problem as it seems that he has 28 drinks a day minimum, will further assess with osmolality and other labs (2) Anxiety: Code(s): F41.9 - Anxiety disorder, unspecified Status: Acute Assessment and Plan: Continue home alprazolam 0.25mg PO BID, continue BuSpar for now Trend moods adjust therapy as indicated (3) COPD (chronic obstructive pulmonary disease): Qualifiers: COPD type: unspecified COPD Qualified Code(s): J44.9 - Chronic obstructive pulmonary disease, unspecified Code(s): J44.9 - Chronic obstructive pulmonary disease, unspecified Status: Acute Assessment and Plan: Chronic respiratory failure as he wears 2.5-3LNC at home Trend saturations Continue home trelegy and albuterol No need for steroids at this time No exacerbation noted Chest xray shows severe emphysema with increased interstitial pattern (4) HTN (hypertension): Qualifiers: Hypertension type: unspecified Qualified Code(s): I10 - Essential (primary) hypertension Code(s): I10 - Essential (primary) hypertension Status: Acute Assessment and Plan: BP is elevated at 160/92 Continue home metoprolol Add amlodipine 5mg PO daily (5) Alcohol abuse: Code(s): F10.10 - Alcohol abuse, uncomplicated Status: Acute Assessment and Plan: Looks like he consumes 28 drinks CIWA protocol Add Librium and Ativan for CIWA greater than 8 Add folic acid and thiamine (6) Congestive heart failure: Code(s): I50.9 - Heart failure, unspecified Status: Acute Assessment and Plan: Could be in acute exacerbation ECHO from 10/2020 shows EF of 60-65% with undetermined diastolic dysfunction Na is low BNP 1720 Repeat echo Daily weight Trend urine output If he is in exacerbation it would be diastolic heart failure from the information that it available Chest xray also eluded to pulmonary edema as well He does take furosemide at home, on hold as this does cause hyponatremia (7) BPH (benign prostatic hyperplasia): Code(s): N40.0 - Benign prostatic hyperplasia without lower urinary tract symptoms Status: Acute Assessment and Plan: Complains to not being able to urinate Bladder scan PRN Continue home Flomax Trend urine output consider adding finasteride Time Spent With Patient Time with patient: Greater than 35 minutes Subjective Date/time seen: 07/13/21 08:45 Interval history: 07/12/21 14:06 Narrative: Mr. Dubose is a 66-year-old gentleman who presented to the emergency room by direction of his primary care provider for abnormal laboratories. Patient states that he saw his primary care provider yesterday for anxiety and a checkup and had routine laboratories drawn. Upon evaluation by the patient's primary care provider it was noted his sodium was 118 in a.m. patient was called today and told to come to the hospital for further evaluation. Upon evaluation emergency room patient's laboratories were redrawn and his sodium was noted to be 117. Patient states up until today he has been feeling fine. He patient denies any abnormal shortness of breath. Patient states he does have chronic shortness of breath secondary to his severe COPD. Patient states he does wear oxygen at 2 and [place]
--- NOTE | 2021-07-13 09:20 | ECG_ITS ---
Measurements Intervals [place] Rate: 90 P: 92 AL: 186 QRS: -77 QRSD: 109 T: 104 QT: 371 QTc: 454 Interpretive Statements SINUS RHYTHM LEFT ATRIAL ENLARGEMENT [-0.15mV P WAVE IN V1/V2] INFERIOR MYOCARDIAL INFARCTION , PROBABLY OLD [40+ ms Q WAVE AND/OR ST/T ABNORMALITY IN II/aVF] ST DEVIATION AND MODERATE T-WAVE ABNORMALITY, CONSIDER LATERAL ISCHEMIA [-0.1+ mV T WAVE IN I/aVL/V5/V6] COMPARED TO ECG 11/02/2020 12:13:[address] DEPRESSION IS NEW Electronically Signed On 07-14-2021 6:43:44 CDT by Bessy Lopez M.D.
[2021-07-13] MEDS: COSYNTROPIN 0.25 MG/ML VIAL IV PUSH (09:21)
--- NOTE | 2021-07-13 10:16 | PM.PNNEP ---
Progress Note: A&P Additional Plan 1. the patient has hyponatremia. He has chronic hyponatremia with a very mild reduction of serum sodium. There are 2 causes for this I think. COPD can do this. Also he is on bupropion. In addition he drinks heavily. He has acute hyponatremia as well. This may be exacerbated by the drinking. His sodium corrected from 117-123 with just fluid restriction. As long as he does not drink alcohol I think he probably would be okay as this would entail drinking far less fluid at home. Will continue to watch the sodium correction rate to keep it less than 8 over 24 hours. The 117 was at 11:00 a.m. yesterday so all check another 1 at 11:00 a.m. today. Nurses will call me the results 2. COPD. He is getting supportive care. 3. Hypertension. His blood pressure is under pretty good control. 4. Vitamin-D deficiency. He is on ergocalciferol. 5. Congestive heart failure? I am not sure of the nature of this. He seems euvolemic now. 6. BPH the patient is on tamsulosin. We can check a bladder scan to make sure he does not have any obstruction. Subjective Date/time seen: 07/13/21 10:16 Interval history: Chano is feeling okay this morning. He is a bit anxious. He is thirsty with the fluid restriction. Review of Systems Cardiovascular: Cardiovascular: Reports no additional cardiovascular complaints Respiratory: Respiratory: Reports no additional respiratory complaints Gastrointestinal: Gastrointestinal: Reports no additional gastrointestinal complaints Genitourinary: Genitourinary: Reports no additional male genitourinary complaints Exam Narrative: WDWN in NAD skin no rash head ncat lungs clear cor reg no rub abd BS+ nontender and soft ext no edema. Objective Data Vital Signs Vital Signs: Vital Signs - 24 hr 07/12/21 11:13 07/12/21 12:10 07/12/21 13:29 Temperature 36.1 C L Pulse Rate 79 88 90 Respiratory Rate 36 H 17 21 H Blood Pressure 155/109 H 139/92 H 149/74 H Pulse Oximetry 93 96 97 07/12/21 14:20 07/12/21 14:34 07/12/21 17:36 Temperature 36.7 C Pulse Rate 74 Respiratory Rate 22 H Blood Pressure 178/112 H 155/89 H Pulse Oximetry 97 97 07/12/21 19:48 07/12/21 20:00 07/12/21 20:30 Temperature 36.6 C Pulse Rate 59 L 59 L Respiratory Rate 16 16 Blood Pressure 182/91 H Pulse Oximetry 93 93 93 07/12/21 21:56 07/13/21 05:00 07/13/21 08:17 Temperature 36.6 C Pulse Rate 77 78 Respiratory Rate 18 Blood Pressure 151/95 H 124/60 Pulse Oximetry 93 07/13/21 08:20 Temperature Pulse Rate Respiratory Rate Blood Pressure Pulse Oximetry 93 Intake/Output Intake/Output: Intake & Output 07/10/21 07/11/21 07/12/21 07/13/21 23:59 23:59 23:59 23:59 Intake Total 1100 1440 Output Total 350 200 Balance 750 1240 Meds/Results Medications: Active Medications Generic Name Dose Route Start Last Admin Trade Name Freq PRN Reason Stop Dose Admin Acetaminophen 1,000 mg 07/12/21 15:56 Acetaminophen 500 Mg Tablet PO Q6H PRN PAIN RATED 1-3 Albuterol 2 puff 07/12/21 15:56 Albuterol Sulfate (*Sp) Aerosol 1 Puff INHALATION Q4H PRN shortness of breath or wheezing Alprazolam 0.25 mg 07/12/21 18:17 07/13/21 05:39 Alprazolam (*Crx) 0.25 Mg Tablet PO 0.25 mg QID PRN Administration anxiety Buspirone HCl 10 mg 07/12/21 17:00 07/13/21 08:17 Buspirone Hcl 10 Mg Tablet PO 10 mg TID MARILU Administration Chlordiazepoxide HCl 25 mg 07/13/21 07:25 Chlordiazepoxide (*Crx) 25 Mg Capsule PO Q6H PRN Withdrawal Enoxaparin Sodium 40 mg 07/13/21 09:00 07/13/21 08:19 Enoxaparin 40 Mg/0.4 Ml Syringe SUB-Q 40 mg DAILY MARILU Administration Fluticasone/Umeclidinium/Vilanterol 1 puff 07/13/21 09:00 07/13/21 08:19 Fluticasone/Umeclidin/Vilanter 100-62.5-25 Mcg Ellipta INHALATION 1 puff DAILY MARILU Administration Folic Acid 1
[2021-07-13] MEDS: hydrALAZINE HCL 20 MG/ML VIAL 10 MG IV PUSH (10:32)
[2021-07-13 11:23] LABS: Sodium 123 mmol/L (137-145)
[2021-07-13] MEDS: LORazepam INJ (*CRX) 2 MG/ML VIAL 1 MG IV PUSH (15:34)
[2021-07-13 15:46] LABS: Sodium 123 mmol/L (137-145)
[2021-07-13] MEDS: chlordiazePOXIDE (*CRX) 25 MG CAPSULE PO (16:03)
[2021-07-13] MEDS: ZOLPIDEM TARTRATE (*CRX) 5 MG TABLET PO (21:52)
[2021-07-14] VITALS (8 sets, daily range): BP systolic 128–149; BP diastolic 79–95; PULSE 67–85; RESP 14–20; TEMP 36.1–36.6; O2SAT 94–100
--- NOTE | 2021-07-14 | ECHO_ITS ---
Patient Info Name: Chano Dubose Age: 66 years : 1955 Gender: Male Ht: 71 in Wt: 139 lbs BSA: 1.77 m2 HR: 75 bpm BP: 146 / 94 mmHg Technical Quality: Fair Exam Date: 07/14/2021 10:17 AM Exam Location: [facility] Exam Room: [facility] Patient Status: Inpatient Admit Date: 07/13/2021 Staff Ordering Physician: Andres Burnham Slip Cover Estimator: Fe Castro RCS Attending Provider: Jennifer Luna MD Referring Physician: Tej MCCORD; Exam Type: CA echo doppler color flow Study Info Indications - sob bakari Complete two-dimensional, color flow and Doppler transthoracic echocardiogram is performed. Summary 1. Complete two-dimensional, color flow and Doppler transthoracic echocardiogram is performed. 2. Left ventricular chamber dimension is normal. 3. Left ventricular systolic function is normal, estimated at 65-70%. 4. There is mildly increased left ventricular wall thickness. 5. Left ventricular septal wall motion is normal. 6. The left ventricular diastolic function is abnormal. 7. Left atrial chamber dimension is mildly enlarged. 8. Right atrial chamber dimension is moderately enlarged. 9. Moderate pulmonary hypertension, estimated pulmonary arterial systolic pressure is 63 mmHg. Left Ventricle Left ventricular chamber dimension is normal. Left ventricular systolic function is normal, estimated at 65-70%. There is mildly increased left ventricular wall thickness. Left ventricular septal wall motion is normal. The left ventricular diastolic function is abnormal. Right Ventricle Right ventricular chamber dimension is normal. Right ventricular systolic function is normal. Left Atria Left atrial chamber dimension is mildly enlarged. Right Atria Right atrial chamber dimension is moderately enlarged. Aortic Valve The aortic valve is trileaflet. There is no aortic valve sclerosis. There is no aortic valve stenosis. There is no aortic valve regurgitation. Pulmonic Valve The pulmonic valve is normal. There is no pulmonic valve stenosis. There is no pulmonic regurgitation. Mitral Valve The mitral valve has normal leaflets. There is no mitral valve stenosis. There is no mitral valve regurgitation. Tricuspid Valve The tricuspid valve leaflets are normal. There is no significant tricuspid valve stenosis. There is no tricuspid valve regurgitation. Moderate pulmonary hypertension, estimated pulmonary arterial systolic pressure is 63 mmHg. Pericardium/Pleural The pericardium appears normal. There is no pericardial effusion. Inferior Vena Cava Normal inferior vena cava with >50% collapse upon inspiration consistent with normal right atrial pressure, 10 mmHg. Aorta The aortic root size at the sinus of Valsalva is normal. The prox ascending aorta size is normal. Left Ventricular Outflow Tract Name Value Normal LVOT 2D LVOT Diameter 2.1 cm LVOT Doppler LVOT Peak Gradient 4 mmHg LVOT Mean Gradient 2 mmHg LVOT VTI 20 cm LVOT VTI/AV VTI Ratio
[2021-07-14 05:35] LABS: Basophils Percent Auto 0.3 % (0.2-1.2); Eosinophils Percent Auto 0.4 % (0-4.4); Hematocrit 36.3 % (42.0-52.0); Hemoglobin 12.1 g/dL (14.0-18.0); Immature Granulocyte Absolute 0.03 K/mm3 (0.00-0.031); Immature Granulocyte Percent A 0.4 % (0-0.5); Lymphocytes Absolute Auto 0.77 K/mm3 (0.9-3.2); Lymphocytes Percent Auto 10.1 % (18.3-44.2); Mean Corpuscular HGB Conc 33.3 g/dl (32-36); Mean Corpuscular Hemoglobin 33.9 pg (26-34); Mean Corpuscular Volume 101.7 fl (80-100); Mean Platelet Volume 7.8 fl (7.4-10.4); Monocytes Absolute Auto 1.2 K/mm3 (0.1-0.6); Monocytes Percent Auto 15.3 % (2.6-8.5); Neutrophils Absolute Auto 5.6 K/mm3 (1.3-6.7); Neutrophils Percent Auto 73.5 % (45.5-73.1); Platelet Count Result 173 k/mm3 (150-375); Red Blood Count 3.57 M/mm3 (4.6-6.20); Red Cell Distribution Width 13.3 % (11.5-14.5); White Blood Count 7.7 K/mm3 (4.5-10.0)
[2021-07-14 05:48] LABS: Alanine Aminotransferase 16 U/L (4-50); Alkaline Phosphatase 72 U/L (38-126); Anion Gap 2 mmol/L (8-16); Aspartate Amino Transferase 30 U/L (17-59); Bilirubin,Total 0.9 mg/dL (0.2-1.3); Blood Urea Nitrogen 10 mg/dL (9-20); Calcium 8.1 mg/dL (8.4-10.2); Carbon Dioxide 28 mmol/L (22-30); Chloride 95 mmol/L (98-107); Estimated CRCL calculation 94 ml/min; Estimated Glomerular Filt Rate > 60; Glucose 85 mg/dL (65-110); Magnesium 1.9 mg/dL (1.6-2.3); Phosphorus 3.2 mg/dL (2.5-4.5); Potassium 3.6 mmol/L (3.4-5.0); Sodium 125 mmol/L (137-145)
[2021-07-14] MEDS: ALPRAZolam (*CRX) 0.25 MG TABLET PO ×2 (08:16→21:54)
[2021-07-14] MEDS: METOPROLOL SUCCINATE EXT REL 50 MG TABCR PO (08:16)
[2021-07-14] MEDS: ENOXAPARIN 40 MG/0.4 ML SYRINGE SUB-Q (08:17)
[2021-07-14] MEDS: FOLIC ACID 1 MG TABLET PO (08:17)
[2021-07-14] MEDS: TAMSULOSIN HCL 0.4 MG CAPSULE PO (08:17)
[2021-07-14] MEDS: THIAMINE HCL 100 MG TABLET PO (08:17)
[2021-07-14] MEDS: busPIRone HCL 10 MG TABLET PO ×3 (08:18→16:38)
[2021-07-14] MEDS: chlordiazePOXIDE (*CRX) 25 MG CAPSULE PO ×3 (08:18→16:38)
[2021-07-14] MEDS: FINASTERIDE 5 MG TABLET PO (08:18)
[2021-07-14] MEDS: SODIUM CHLORIDE 0.9% IV 1,000 ML 75 ML IV CONT (08:25)
[2021-07-14] MEDS: FLUTICASONE/UMECLIDIN/VILANTER 100-62.5-25 MCG ELLIPTA 1 PUFF INHALATION (08:27)
--- NOTE | 2021-07-14 09:45 | P.PNIM_ITS ---
Progress Note: A&P Assessment and Plan (1) Hyponatremia: Code(s): E87.1 - Hypo-osmolality and hyponatremia Status: Acute Assessment and Plan: * Sodium 125 today * sodium was 117 upon admission * Nephrology consulted thank you for your recommendation * Serial sodium trend frequently * Urine creatinine 29.3, serum osmolality pending, urine osmolality pending, urine sodium 29 * TSH 1.460 * Hold Wellbutrin as this can cause hyponatremia * It seems that BuSpar can also lower sodium levels * Trend labs * Fluid restriction in place, 1000ml per day * NACL 75ml/hr, dc'd per nephrology * Cortisol levels 19.40, 34.60, 38.40 * ETOH is a problem as it seems that he has 28 drinks a day minimum, will further assess with osmolality and other labs (2) Anxiety: Code(s): F41.9 - Anxiety disorder, unspecified Status: Acute Assessment and Plan: * Continue home alprazolam 0.25mg PO BID, continue BuSpar for now * Trend moods * adjust therapy as indicated (3) COPD (chronic obstructive pulmonary disease): Qualifiers: COPD type: unspecified COPD Qualified Code(s): J44.9 - Chronic obstructive pulmonary disease, unspecified Code(s): J44.9 - Chronic obstructive pulmonary disease, unspecified Status: Acute Assessment and Plan: * Chronic respiratory failure as he wears 2.5-3LNC at home * Trend saturations * Continue home trelegy and albuterol * No need for steroids at this time * No exacerbation noted * Chest xray shows severe emphysema with increased interstitial pattern (4) HTN (hypertension): Qualifiers: Hypertension type: unspecified Qualified Code(s): I10 - Essential (primary) hypertension Code(s): I10 - Essential (primary) hypertension Status: Acute Assessment and Plan: * BP is elevated at 145/87 * Continue home metoprolol * Add amlodipine 5mg PO daily * trend BP * adjust therapy as indicated (5) Alcohol abuse: Code(s): F10.10 - Alcohol abuse, uncomplicated Status: Acute Assessment and Plan: * Looks like he consumes 28 drinks * CIWA protocol * Add Librium and Ativan for CIWA greater than 8 * Add folic acid and thiamine (6) Congestive heart failure: Code(s): I50.9 - Heart failure, unspecified Status: Acute Assessment and Plan: * Could be in acute exacerbation * ECHO from 10/2020 shows EF of 60-65% with undetermined diastolic dysfunction * Na is low * BNP 1720 * Repeat echo * Daily weight * Trend urine output * If he is in exacerbation it would be diastolic heart failure from the information that it available * Chest xray also eluded to pulmonary edema as well * He does take furosemide at home, on hold as this does cause hyponatremia (7) BPH (benign prostatic hyperplasia): Code(s): N40.0 - Benign prostatic hyperplasia without lower urinary tract symptoms Status: Acute Assessment and Plan: * Complains to not being able to urinate * Bladder scan found >999 left after voiding 600 * Continue home Flomax * Trend urine output * add finasteride * Urinary catheter placed Subjective Date/time seen: 07/14/21 06:26 Interval history: 07/12/21 14:06 Narrative: Mr. Dubose is a 66-year-old gentleman who presented to the emergency room by direction of his primary care provider for abnorm
--- NOTE | 2021-07-14 09:45 | PM.IMPN ---
Progress Note: A&P Assessment and Plan (1) Hyponatremia: Code(s): E87.1 - Hypo-osmolality and hyponatremia Status: Acute Assessment and Plan: Sodium 125 today sodium was 117 upon admission Nephrology consulted thank you for your recommendation Serial sodium trend frequently Urine creatinine 29.3, serum osmolality pending, urine osmolality pending, urine sodium 29 TSH 1.460 Hold Wellbutrin as this can cause hyponatremia It seems that BuSpar can also lower sodium levels Trend labs Fluid restriction in place, 1000ml per day NACL 75ml/hr, dc'd per nephrology Cortisol levels 19.40, 34.60, 38.40 ETOH is a problem as it seems that he has 28 drinks a day minimum, will further assess with osmolality and other labs (2) Anxiety: Code(s): F41.9 - Anxiety disorder, unspecified Status: Acute Assessment and Plan: Continue home alprazolam 0.25mg PO BID, continue BuSpar for now Trend moods adjust therapy as indicated (3) COPD (chronic obstructive pulmonary disease): Qualifiers: COPD type: unspecified COPD Qualified Code(s): J44.9 - Chronic obstructive pulmonary disease, unspecified Code(s): J44.9 - Chronic obstructive pulmonary disease, unspecified Status: Acute Assessment and Plan: Chronic respiratory failure as he wears 2.5-3LNC at home Trend saturations Continue home trelegy and albuterol No need for steroids at this time No exacerbation noted Chest xray shows severe emphysema with increased interstitial pattern (4) HTN (hypertension): Qualifiers: Hypertension type: unspecified Qualified Code(s): I10 - Essential (primary) hypertension Code(s): I10 - Essential (primary) hypertension Status: Acute Assessment and Plan: BP is elevated at 145/87 Continue home metoprolol Add amlodipine 5mg PO daily trend BP adjust therapy as indicated (5) Alcohol abuse: Code(s): F10.10 - Alcohol abuse, uncomplicated Status: Acute Assessment and Plan: Looks like he consumes 28 drinks CIWA protocol Add Librium and Ativan for CIWA greater than 8 Add folic acid and thiamine (6) Congestive heart failure: Code(s): I50.9 - Heart failure, unspecified Status: Acute Assessment and Plan: Could be in acute exacerbation ECHO from 10/2020 shows EF of 60-65% with undetermined diastolic dysfunction Na is low BNP 1720 Repeat echo Daily weight Trend urine output If he is in exacerbation it would be diastolic heart failure from the information that it available Chest xray also eluded to pulmonary edema as well He does take furosemide at home, on hold as this does cause hyponatremia (7) BPH (benign prostatic hyperplasia): Code(s): N40.0 - Benign prostatic hyperplasia without lower urinary tract symptoms Status: Acute Assessment and Plan: Complains to not being able to urinate Bladder scan found >999 left after voiding 600 Continue home Flomax Trend urine output add finasteride Urinary catheter placed Subjective Date/time seen: 07/14/21 06:26 Interval history: 07/12/21 14:06 Narrative: Mr. Dubose is a 66-year-old gentleman who presented to the emergency room by direction of his primary care provider for abnormal laboratories. Patient states that he saw his primary care provider yesterday for anxiety and a checkup and had routine laboratories drawn. Upon evaluation by the patient's primary care provider it was noted his sodium was 118 in a.m. patient was called today and told to come to the hospital for further evaluation. Upon evaluation emergency room patient's laboratories were redrawn and his sodium was noted to be 117. Patient states up until today he has been feeling fine. He patient denies any abnormal shortness of breath. Patient states he does have chronic shortness of olivia
--- NOTE | 2021-07-14 09:48 | PM.PNNEP ---
Progress Note: A&P Additional Plan 1. the patient has hyponatremia. He has chronic hyponatremia with a very mild reduction of serum sodium. TSH is okay. Cortisol level was low but Cortrosyn stimulation is normal. imaging of the chest shows no pulmonary issues other than his severe COPD. No history of cancer. 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 Etiology for the hyponatremia related to the COPD, bupropion, and excess fluid intake especially with the alcohol consumption. His sodium is slowly improving. He looks euvolemic so we can stop the IV fluids. 2. COPD. He is getting supportive care. 3. Hypertension. His blood pressure is under good control. 4. Vitamin-D deficiency. He is on ergocalciferol. 5. Congestive heart failure? I am not sure of the nature of this. He seems euvolemic now. 6. BPH the patient is on tamsulosin. Subjective Date/time seen: 07/14/21 09:48 Interval history: Chano is feeling okay this morning. He is a bit anxious. He is thirsty with the fluid restriction. Exam Narrative: WDWN in NAD skin no rash or subcu nodules head ncat lungs clear bilaterally but decreased breath sounds throughout cor reg no rub abd BS+ nontender and soft ext no edema. Objective Data Vital Signs Vital Signs: Vital Signs - 24 hr 07/13/21 10:25 07/13/21 11:10 07/13/21 14:30 Temperature 37.0 C 36.8 C Pulse Rate 76 80 Respiratory Rate 20 20 Blood Pressure 180/104 H 160/92 H 166/100 H Pulse Oximetry 97 98 07/13/21 17:52 07/13/21 19:28 07/13/21 20:31 Temperature 37.2 C Pulse Rate 85 Respiratory Rate 20 Blood Pressure 131/85 Pulse Oximetry 97 97 95 07/13/21 21:33 07/14/21 00:00 07/14/21 06:39 Temperature 36.9 C 36.6 C 36.5 C Pulse Rate 71 76 85 Respiratory Rate 14 16 14 Blood Pressure 168/90 H 145/87 H 146/94 H Pulse Oximetry 100 99 100 07/14/21 08:16 07/14/21 08:27 07/14/21 09:47 Temperature 36.3 C L Pulse Rate 73 81 Respiratory Rate 18 Blood Pressure 128/90 Pulse Oximetry 94 99 Intake/Output Intake/Output: Intake & Output 07/11/21 07/12/21 07/13/21 07/14/21 23:59 23:59 23:59 23:59 Intake Total 1100 2920 1560 Output Total 350 3100 400 Balance 750 -180 1160 Meds/Results Medications: Active Medications Generic Name Dose Route Start Last Admin Trade Name Freq PRN Reason Stop Dose Admin Acetaminophen 1,000 mg 07/12/21 15:56 Acetaminophen 500 Mg Tablet PO Q6H PRN PAIN RATED 1-3 Albuterol 2 puff 07/12/21 15:56 Albuterol Sulfate (*Sp) Aerosol 1 Puff INHALATION Q4H PRN shortness of breath or wheezing Alprazolam 0.25 mg 07/12/21 18:17 07/14/21 08:16 Alprazolam (*Crx) 0.25 Mg Tablet PO 0.25 mg QID PRN Administration anxiety Buspirone HCl 10 mg 07/12/21 17:00 07/14/21 08:18 Buspirone Hcl 10 Mg Tablet PO 10 mg TID MARILU Administration Chlordiazepoxide HCl 25 mg 07/13/21 17:00 07/14/21 08:18 Chlordiazepoxide (*Crx) 25 Mg Capsule PO 25 mg TID MARILU Administration Enoxaparin Sodium 40 mg 07/13/21 09:00 07/14/21 08:17 Enoxaparin 40 Mg/0.4 Ml Syringe SUB-Q 40 mg DAILY MARILU Administration Finasteride 5 mg 07/14/21 09:00 07/14/21 08:18 Finasteride 5 Mg Tablet PO 5 mg QAM MARILU Administration Fluticasone/Umeclidinium/Vilanterol 1 puff 07/13/21 09:00 07/14/21 08:27 Fluticasone/Umeclidin/Vilanter 100-62.5-25 Mcg Ellipta INHALATION 1 puff DAILY MARILU Administration Folic Acid 1 mg 07/13/21 09:00 07/14/21 08:17 Folic Acid 1 Mg Tablet PO 1 mg DAILY MARILU Administration Hydralazine HCl 10 mg 07/12/21 15:51 07/13/21 10:32 Hydralazine Hcl 20 Mg/Ml Vial IV PUSH 10 mg Q6H PRN Administration Blood Pressure - High Lorazepam 1 mg 07/13/21 14:38 07/13/21 15:34 Lorazepam Inj (*Crx) 2 Mg/Ml Vial IV PUSH 1 mg Q6H PRN Administration Alcohol Withdrawal CIWA 5-9 Metoprolol Succinate 50 mg 07/13/21 09:00 07/14/21
[2021-07-14 16:03] LABS: Sodium 127 mmol/L (137-145)
[2021-07-14] MEDS: ZOLPIDEM TARTRATE (*CRX) 5 MG TABLET PO (21:54)
[2021-07-15] VITALS: BP 134/81; PULSE 72; RESP 21; TEMP 36.1; O2SAT 100
[2021-07-15 04:00] VITALS: BP 134/81
[2021-07-15 05:39] LABS: Anion Gap 2 mmol/L (8-16); Blood Urea Nitrogen 9 mg/dL (9-20); Calcium 8.1 mg/dL (8.4-10.2); Carbon Dioxide 30 mmol/L (22-30); Chloride 97 mmol/L (98-107); Estimated CRCL calculation 94 ml/min; Estimated Glomerular Filt Rate > 60; Glucose 85 mg/dL (65-110); Phosphorus 3.9 mg/dL (2.5-4.5); Potassium 3.8 mmol/L (3.4-5.0); Sodium 129 mmol/L (137-145)
[2021-07-15 06:05] VITALS: BP 160/90; PULSE 65; RESP 20; TEMP 36.1; O2SAT 99
[2021-07-15 08:18] VITALS: PULSE 78
[2021-07-15] MEDS: ENOXAPARIN 40 MG/0.4 ML SYRINGE SUB-Q (08:18)
[2021-07-15] MEDS: METOPROLOL SUCCINATE EXT REL 50 MG TABCR PO (08:18)
[2021-07-15] MEDS: chlordiazePOXIDE (*CRX) 25 MG CAPSULE PO (08:19)
[2021-07-15] MEDS: busPIRone HCL 10 MG TABLET PO (08:19)
[2021-07-15] MEDS: FOLIC ACID 1 MG TABLET PO (08:19)
[2021-07-15] MEDS: FINASTERIDE 5 MG TABLET PO (08:19)
[2021-07-15] MEDS: THIAMINE HCL 100 MG TABLET PO (08:19)
[2021-07-15] MEDS: TAMSULOSIN HCL 0.4 MG CAPSULE PO (08:19)
--- NOTE | 2021-07-15 08:52 | PM.PNNEP ---
Progress Note: A&P Additional Plan 1. the patient has hyponatremia. He has chronic hyponatremia with a very mild reduction of serum sodium. Etiology for the hyponatremia related to the COPD, bupropion, and excess fluid intake especially with the alcohol consumption. His sodium is slowly improving. up to 129 today. This is just about his baseline. I am okay for discharge when other issues are resolved. discussed with SCENE AND LIGHTING DESIGN LECTURER Tej 2. COPD. He is getting supportive care. 3. Hypertension. His blood pressure is ranging from 130-160. 4. Vitamin-D deficiency. He is on ergocalciferol. 5. Congestive heart failure? I am not sure of the nature of this. He seems euvolemic now. 6. BPH the patient is on tamsulosin. He has a Rodrigues catheter in place. This is going to be removed. Subjective Date/time seen: 07/15/21 08:52 Interval history: Chano is feeling okay this morning. No shortness of breath. Exam Narrative: WDWN in NAD skin no rash or subcu nodules head ncat lungs clear bilaterally but decreased breath sounds throughout cor reg no rub or gallop abd BS+ nontender and soft ext no edema or cyanosis. Objective Data Vital Signs Vital Signs: Vital Signs - 24 hr 07/14/21 09:47 07/14/21 14:00 07/14/21 17:54 Temperature 36.3 C L 36.1 C L 36.3 C L Pulse Rate 81 67 70 Respiratory Rate 18 16 16 Blood Pressure 128/90 132/93 H 132/79 Pulse Oximetry 99 100 100 07/14/21 20:00 07/15/21 00:00 07/15/21 04:00 Temperature 36.2 C L 36.1 C L Pulse Rate 69 72 Respiratory Rate 20 21 H Blood Pressure 149/95 H 134/81 134/81 Pulse Oximetry 98 100 07/15/21 06:05 07/15/21 08:18 Temperature 36.1 C L Pulse Rate 65 78 Respiratory Rate 20 Blood Pressure 160/90 H Pulse Oximetry 99 Intake/Output Intake/Output: Intake & Output 07/12/21 07/13/21 07/14/21 07/15/21 23:59 23:59 23:59 23:59 Intake Total 1100 2920 2570 390 Output Total 350 3100 750 650 Balance 750 -180 1820 -260 Meds/Results Medications: Active Medications Generic Name Dose Route Start Last Admin Trade Name Freq PRN Reason Stop Dose Admin Acetaminophen 1,000 mg 07/12/21 15:56 Acetaminophen 500 Mg Tablet PO Q6H PRN PAIN RATED 1-3 Albuterol 2 puff 07/12/21 15:56 Albuterol Sulfate (*Sp) Aerosol 1 Puff INHALATION Q4H PRN shortness of breath or wheezing Alprazolam 0.25 mg 07/12/21 18:17 07/14/21 21:54 Alprazolam (*Crx) 0.25 Mg Tablet PO 0.25 mg QID PRN Administration anxiety Buspirone HCl 10 mg 07/12/21 17:00 07/15/21 08:19 Buspirone Hcl 10 Mg Tablet PO 10 mg TID MARILU Administration Chlordiazepoxide HCl 25 mg 07/13/21 17:00 07/15/21 08:19 Chlordiazepoxide (*Crx) 25 Mg Capsule PO 25 mg TID MARILU Administration Enoxaparin Sodium 40 mg 07/13/21 09:00 07/15/21 08:18 Enoxaparin 40 Mg/0.4 Ml Syringe SUB-Q 40 mg DAILY MARILU Administration Finasteride 5 mg 07/14/21 09:00 07/15/21 08:19 Finasteride 5 Mg Tablet PO 5 mg QAM MARILU Administration Fluticasone/Umeclidinium/Vilanterol 1 puff 07/13/21 09:00 07/14/21 08:27 Fluticasone/Umeclidin/Vilanter 100-62.5-25 Mcg Ellipta INHALATION 1 puff DAILY MARILU Administration Folic Acid 1 mg 07/13/21 09:00 07/15/21 08:19 Folic Acid 1 Mg Tablet PO 1 mg DAILY MARILU Administration Hydralazine HCl 10 mg 07/12/21 15:51 07/13/21 10:32 Hydralazine Hcl 20 Mg/Ml Vial IV PUSH 10 mg Q6H PRN Administration Blood Pressure - High Lorazepam 1 mg 07/13/21 14:38 07/13/21 15:34 Lorazepam Inj (*Crx) 2 Mg/Ml Vial IV PUSH 1 mg Q6H PRN Administration Alcohol Withdrawal CIWA 5-9 Metoprolol Succinate 50 mg 07/13/21 09:00 07/15/21 08:18 Metoprolol Succinate Ext Rel 50 Mg Tabcr PO 50 mg DAILY MARILU Administration Perflutren Lipid Microsphere 0 ml 07/14/21 06:31 Perflutren Lipid Microspheres 1.5 Ml Vial Diluted To 10 Ml Total Volume IV PUSH ONCE PRN
[2021-07-15 10:00] VITALS: BP 137/75; PULSE 76; RESP 20; TEMP 36.4; O2SAT 100
--- NOTE | 2021-07-15 10:00 | P.DS_ITS ---
DS: Admitting Diagnosis Discharge Date 07/15/21 1000 Admitting Diagnosis hyponatremia/BPH DS: Discharge Diagnosis Discharge Diagnosis (1) Hyponatremia: Code(s): E87.1 - Hypo-osmolality and hyponatremia Status: Acute Assessment and Plan: * Sodium 129 today * sodium was 117 upon admission * Nephrology consulted thank you for your recommendation * Serial sodium trend frequently * Urine creatinine 29.3, serum osmolality pending, urine osmolality pending, urine sodium 29 * TSH 1.460 * Hold Wellbutrin as this can cause hyponatremia * It seems that BuSpar can also lower sodium levels * Trend labs * Fluid restriction in place, 1000ml per day * NACL 75ml/hr, dc'd per nephrology * Cortisol levels 19.40, 34.60, 38.40 * ETOH is a problem as it seems that he has 28 drinks a day minimum, will further assess with osmolality and other labs (2) Anxiety: Code(s): F41.9 - Anxiety disorder, unspecified Status: Acute Assessment and Plan: * Continue home alprazolam 0.25mg PO BID, continue BuSpar for now * Trend moods * adjust therapy as indicated (3) COPD (chronic obstructive pulmonary disease): Qualifiers: COPD type: unspecified COPD Qualified Code(s): J44.9 - Chronic obstructive pulmonary disease, unspecified Code(s): J44.9 - Chronic obstructive pulmonary disease, unspecified Status: Acute Assessment and Plan: * Chronic respiratory failure as he wears 2.5-3LNC at home * Trend saturations * Continue home trelegy and albuterol * No need for steroids at this time * No exacerbation noted * Chest xray shows severe emphysema with increased interstitial pattern (4) HTN (hypertension): Qualifiers: Hypertension type: unspecified Qualified Code(s): I10 - Essential (primary) hypertension Code(s): I10 - Essential (primary) hypertension Status: Acute Assessment and Plan: * BP is elevated at 160/90 * Continue home metoprolol * Add amlodipine 5mg PO daily * trend BP * adjust therapy as indicated (5) Alcohol abuse: Code(s): F10.10 - Alcohol abuse, uncomplicated Status: Acute Assessment and Plan: * Looks like he consumes 28 drinks * CIWA protocol * Add Librium and Ativan for CIWA greater than 8 * Add folic acid and thiamine (6) Congestive heart failure: Code(s): I50.9 - Heart failure, unspecified Status: Acute Assessment and Plan: * Could be in acute exacerbation * ECHO from 10/2020 shows EF of 60-65% with undetermined diastolic dysfunction * Na is low * BNP 1720 * Repeat echo EF of 65-70% with an abnormal diastolic dysfunction * Daily weight * Trend urine output * If he is in exacerbation it would be diastolic heart failure from the information that it available * Chest xray also eluded to pulmonary edema as well * He does take furosemide at home, on hold as this does cause hyponatremia (7) BPH (benign prostatic hyperplasia): Code(s): N40.0 - Benign prostatic hyperplasia without lower urinary tract symptoms Status: Acute Assessment and Plan: * Complains to not being able to urinate * Bladder scan found >999 left after voiding 600 * Continue home Flomax * Trend urine output * add finasteride * Voiding trial DS: Summary Hospital Course Hospital Course: Patient is a 66-year-o
--- NOTE | 2021-07-15 10:00 | PM.DS ---
DS: Admitting Diagnosis Discharge Date 07/15/21 1000 Admitting Diagnosis hyponatremia/BPH DS: Discharge Diagnosis Discharge Diagnosis (1) Hyponatremia: Code(s): E87.1 - Hypo-osmolality and hyponatremia Status: Acute Assessment and Plan: Sodium 129 today sodium was 117 upon admission Nephrology consulted thank you for your recommendation Serial sodium trend frequently Urine creatinine 29.3, serum osmolality pending, urine osmolality pending, urine sodium 29 TSH 1.460 Hold Wellbutrin as this can cause hyponatremia It seems that BuSpar can also lower sodium levels Trend labs Fluid restriction in place, 1000ml per day NACL 75ml/hr, dc'd per nephrology Cortisol levels 19.40, 34.60, 38.40 ETOH is a problem as it seems that he has 28 drinks a day minimum, will further assess with osmolality and other labs (2) Anxiety: Code(s): F41.9 - Anxiety disorder, unspecified Status: Acute Assessment and Plan: Continue home alprazolam 0.25mg PO BID, continue BuSpar for now Trend moods adjust therapy as indicated (3) COPD (chronic obstructive pulmonary disease): Qualifiers: COPD type: unspecified COPD Qualified Code(s): J44.9 - Chronic obstructive pulmonary disease, unspecified Code(s): J44.9 - Chronic obstructive pulmonary disease, unspecified Status: Acute Assessment and Plan: Chronic respiratory failure as he wears 2.5-3LNC at home Trend saturations Continue home trelegy and albuterol No need for steroids at this time No exacerbation noted Chest xray shows severe emphysema with increased interstitial pattern (4) HTN (hypertension): Qualifiers: Hypertension type: unspecified Qualified Code(s): I10 - Essential (primary) hypertension Code(s): I10 - Essential (primary) hypertension Status: Acute Assessment and Plan: BP is elevated at 160/90 Continue home metoprolol Add amlodipine 5mg PO daily trend BP adjust therapy as indicated (5) Alcohol abuse: Code(s): F10.10 - Alcohol abuse, uncomplicated Status: Acute Assessment and Plan: Looks like he consumes 28 drinks CIWA protocol Add Librium and Ativan for CIWA greater than 8 Add folic acid and thiamine (6) Congestive heart failure: Code(s): I50.9 - Heart failure, unspecified Status: Acute Assessment and Plan: Could be in acute exacerbation ECHO from 10/2020 shows EF of 60-65% with undetermined diastolic dysfunction Na is low BNP 1720 Repeat echo EF of 65-70% with an abnormal diastolic dysfunction Daily weight Trend urine output If he is in exacerbation it would be diastolic heart failure from the information that it available Chest xray also eluded to pulmonary edema as well He does take furosemide at home, on hold as this does cause hyponatremia (7) BPH (benign prostatic hyperplasia): Code(s): N40.0 - Benign prostatic hyperplasia without lower urinary tract symptoms Status: Acute Assessment and Plan: Complains to not being able to urinate Bladder scan found >999 left after voiding 600 Continue home Flomax Trend urine output add finasteride Voiding trial DS: Summary Hospital Course Hospital Course: Patient is a 66-year-old male with a past medical history of BPH, CHF, COPD, TA who presented to the ED complaints of abnormal labs. Patient's sodium was noted to be 118. Patient was placed on IV fluids and Nephrology was consulted patient was then placed on fluid restriction with 1000 mL per day. Upon arrival the patient was noted to have a type of hyperventilating gasp/blow pattern. Anxiety medication were assessed and ordered. Sodium was on trend and has slowly gone up. ETOH was addressed with the patient and CIWA was utilized. It is perhaps the ETOH that caused him to become hyponatremic. It was also n
[2021-07-15] MEDS: ALBUTEROL SULFATE (*SP) AEROSOL 1 PUFF 2 PUFF INHALATION (10:04)
[2021-07-16 23:32] LABS: Albumin 3.8 g/dL (3.8-4.8); Alpha 1 Globulin 0.3 g/dL (0.2-0.3); Alpha 2 Globulin 0.6 g/dL (0.5-0.9); Beta 1 Globulin 0.5 g/dL (0.4-0.6); Gamma Globulin 0.9 g/dL (0.8-1.7); Protein, Total 6.5 g/dL (6.1-8.1)
[2021-07-18 04:38] LABS: Osmolality, Urine 333 mOsm/kg (50-1200)
== END 2021-07-15 10:52 | disposition home or self-care (01) | DRG 640 ==
LOC: ANHED 12:42 → ANH2MED 13:15
PROVIDERS: Internal Medicine Nephrology; Nurse Practitioner Adult Health; Admitting Provider Family Medicine; Emergency Provider Emergency Medicine; PCP Nurse Practitioner; Visit Provider Nurse Practitioner
DX: E87.1 Hypo-osmolality and hyponatremia (principal); I50.33 Acute on chronic diastolic (congestive) heart failure; J96.10 Chronic respiratory failure, unspecified whether with hypoxia or hypercapnia; T43.295A Adverse effect of other antidepressants, initial encounter; I11.0 Hypertensive heart disease with heart failure; J44.9 Chronic obstructive pulmonary disease, unspecified; F10.10 Alcohol abuse, uncomplicated; F41.9 Anxiety disorder, unspecified; N40.0 Benign prostatic hyperplasia without lower urinary tract symptoms; E55.9 Vitamin D deficiency, unspecified; F32.A Depression, unspecified; I48.91 Unspecified atrial fibrillation; Z86.73 Personal history of transient ischemic attack (TIA), and cerebral infarction without residual deficits; Z87.11 Personal history of peptic ulcer disease
CPT/HCPCS: 36415; 71045; 80053; 80069; 81001; 82533; 82570; 83735; 83880; 83930; 83935; 84100; 84155; 84165; 84295; 84300; 84443; 85025; 93005; 93306; 94640; 96361; 96372; 96374; 96375; 99285; A9270; G0378; J0360; J0834; J1650; J2060; J7030

== ENCOUNTER 2021-08-29 15:06 | Inpatient (IN) | payer MEDICARE, SELFPAY ==
[2021-08-29] VITALS (19 sets, daily range): BP systolic 130–187; BP diastolic 87–104; PULSE 75–91; RESP 16–28; TEMP 36.6–36.8; O2SAT 88–100; BMI 19.9
--- NOTE | ~2021-08-29 | XR_ITS ---
XR chest 2V DATE: 08/29/2021 15:52 INDICATION: Shortness of breath. TECHNIQUE: AP and lateral views COMPARISON: Portable AP chest on 07/12/2021 FINDINGS: There is bilateral hyperinflation including evidence of bullae, increased retrosternal airs pace, prominent flattening of the diaphragm and prominent central pulmonary arteries which taper rapi dly, consistent with severe bullous emphysema and pulmonary hypertension. Prominent interstitial markings in the lower lung zones are likely due to a combination of crowding d ue bullae and greater emphysematous changes in the upper lung zones in addition to chronic interstiti al fibrosis. No pulmonary infiltrate or consolidation, pulmonary vascular congestion or pneumothorax or any signif icant pleural fluid accumulation is evident. Cardiomegaly. There is aortic calcification and tortuosity. Subclavian and axillary artery calcificat ions are noted. Osteopenia. There are multiple compression fracture deformities of the thoracic spine. IMPRESSION: Bullous emphysema and pulmonary hypertension Cardiomegaly Aortic atherosclerosis Osteopenia Multiple compression fracture deformities of the thoracic spine Reviewed, dictated and finalized at location A.
--- NOTE | 2021-08-29 15:40 | ECG_ITS ---
Measurements Intervals [place] Rate: 82 P: 92 OH: 183 QRS: -65 QRSD: 116 T: 102 QT: 360 QTc: 421 Interpretive Statements SINUS RHYTHM LEFT AXIS DEVIATION INCOMPLETE RIGHT BUNDLE BRANCH BLOCK INFARCT, AGE INDETERMINATE ST-T WAVE ABNORMALITY IN LATERAL LEADS- CONSIDER ISCHEMIA BASELINE ARTIFACT- I, II, III, AVR, AVL, AVF, V1-V6 ABNORMAL ECG Electronically Signed On 08-29-2021 16:03:31 CDT by Gordon Rosado D.O.
[2021-08-29 15:48] LABS: Basophils Percent Auto 0.3 % (0.2-1.2); Eosinophils Absolute Auto 0.1 K/mm3 (0-0.3); Eosinophils Percent Auto 0.8 % (0-4.4); Hematocrit 36.3 % (42.0-52.0); Immature Granulocyte Absolute 0.04 K/mm3 (0.00-0.031); Immature Granulocyte Percent A 0.6 % (0-0.5); Lymphocytes Absolute Auto 0.44 K/mm3 (0.9-3.2); Lymphocytes Percent Auto 7.1 % (18.3-44.2); Mean Corpuscular HGB Conc 33.1 g/dl (32-36); Mean Corpuscular Hemoglobin 33.1 pg (26-34); Mean Corpuscular Volume 100.3 fl (80-100); Mean Platelet Volume 7.7 fl (7.4-10.4); Monocytes Absolute Auto 0.9 K/mm3 (0.1-0.6); Monocytes Percent Auto 14.8 % (2.6-8.5); Neutrophils Absolute Auto 4.8 K/mm3 (1.3-6.7); Neutrophils Percent Auto 76.4 % (45.5-73.1); Platelet Count Result 230 k/mm3 (150-375); Red Blood Count 3.62 M/mm3 (4.6-6.20); Red Cell Distribution Width 13.2 % (11.5-14.5); White Blood Count 6.2 K/mm3 (4.5-10.0)
[2021-08-29 16:00] LABS: Alanine Aminotransferase 14 U/L (6-50); Albumin Level 3.1 g/dL (3.5-5.1); Alkaline Phosphatase 79 U/L (38-126); Anion Gap 5 mmol/L (8-16); Aspartate Amino Transferase 27 U/L (17-59); Bilirubin,Total 0.9 mg/dL (0.2-1.3); Blood Urea Nitrogen 9 mg/dL (9-20); Calcium 7.9 mg/dL (8.4-10.2); Carbon Dioxide 30 mmol/L (22-30); Chloride 86 mmol/L (98-107); Estimated CRCL calculation 96 ml/min; Estimated Glomerular Filt Rate > 60; Glucose 108 mg/dL (65-110); Potassium 4.5 mmol/L (3.4-5.0); Sodium 121 mmol/L (137-145)
--- NOTE | 2021-08-29 16:31 | ED.GENADULT ---
HPI - General Adult General Chief complaint: Shortness of Breath/Dyspnea Stated complaint: sob Time Seen by Provider: 08/29/21 15:13 Source: patient and family Mode of arrival: wheelchair Limitations: no limitations History of Present Illness HPI narrative: 66-year-old with history of COPD on home oxygen, anxiety, hypertension, hyponatremia , CVA here with complaint of sodium levels. Patient mentions that they have seen their primary doctor yesterday had outpatient labs which showed a sodium of 122. Patient presently denies having any difficulty breathing, no nausea, vomiting feels slightly short of breath. He denies drinking too much of water or alcohol. mentions that his primary doctor started taking his antianxiety medication. Onset (ago): day(s) (2) Exacerbating factors: none Associated symptoms: denies other symptoms Related Data Home Medications Medication Instructions Recorded Confirmed acetaminophen 500 mg capsule 1,000 mg PO Q6H PRN Pain 11/17/20 07/27/21 furosemide 40 mg tablet 40 mg PO DAILY PRN Edema 05/30/21 07/27/21 Allergies Allergy/AdvReac Type Severity Reaction Status Date / Time No Known Allergies Allergy Verified 07/27/21 10:13 Review of Systems Review of Systems: All systems reviewed & are unremarkable except as noted in HPI and below Constitutional: Constitutional: Reports no additional constitutional complaints Eyes: Eyes: Reports no additional eye complaints ENT: Reports system reviewed and no additional complaints, except as documented Cardiovascular: Cardiovascular: Reports no additional cardiovascular complaints Respiratory: Respiratory: Reports no additional respiratory complaints Gastrointestinal: Gastrointestinal: Reports no additional gastrointestinal complaints Musculoskeletal: Musculoskeletal: Reports no additional musculoskeletal complaints Integumentary/Breasts: Skin/Breast: Reports system reviewed and no additional complaints, except as docu Neurologic: Reports system reviewed and no additional complaints, except as documented Psychiatric: Psychiatric: Reports no additional psychiatric complaints Endocrine: Endocrine: Reports no additional endocrine complaints Hematologic/Lymphatic: Hematologic/Lymphatic: Reports no additional hematologic/lymphatic complaints Allergic/Immunologic: Allergic/Immunologic: Reports no additional allergic/immunologic complaints [facility] Past Medical History Medical History Acute exacerbation of CHF (congestive heart failure) Adenomatous colon polyp Anxiety Aspiration pneumonia (Unknown) COPD (chronic obstructive pulmonary disease) Esophageal obstruction History of TIA (transient ischemic attack) HTN (hypertension) Intention tremor New onset a-fib Occlusion of left internal carotid artery Pneumothorax on right (~10/31/20) PUD (peptic ulcer disease) TIA (transient ischemic attack) 2013 Surgical History Surgical History History of tonsillectomy Family History Family History Father Carcinoma of colon Mother Hypertension Diabetes mellitus Mother No problems noted. Social History Social History Smoking packs per day: 1 Smoking cigarettes per day: 20.0 Years smoked: 45 Smoking pack-years: 45.00 Smoking status: Former smoker Alcohol intake: current Drinks per week: 28 Substance use: never Substance use type: does not use Gender identity (if verbalized by the patient): Male Spiritual care concerns: No Exam Narrative: GENERAL: ill-appearing, thin , and in no acute distress. HEAD: Normocephalic, atraumatic. EYES: PERRLA and EOMI. NECK: Supple. CHEST: Clear to auscultation. No respiratory distress. HEART: Regular rate and rhythm. No murmur heard. Normal peripheral pulses. A
[2021-08-29 17:24] LABS: Appearance Urine Cloudy (Clear); Bilirubin Urine Negative (Negative); Blood Urine 3+ (Negative); Color Urine Yellow (Yellow); Glucose Urine UA Negative (Negative); Ketones Urine Negative (Negative); Leukocyte Esterase Ur 1+ LEU/UL (Negative); Nitrate Urine Negative (Negative); Protein Urine 3+ mg/dL (Negative); Specific Grav Ur 1.025 (1.001-1.035)
[2021-08-29 17:27] LABS: Bacteria Urine 1+ /hpf; Mucus Urine Rare /lpf; RBC Urine 21-50 /hpf (0-2); Squamous Epithelial Cell Urine Occasional /hpf (Few); WBC Urine >75 /hpf
[2021-08-29 17:28] LABS: Add Urine Microscopic? YES
--- NOTE | 2021-08-29 18:30 | PM.IMHP ---
H&P: HPI History of Present Illness Date/Time: 08/29/21 18:30 <Cheyanne Rojas PA-C - Last Filed: 08/29/21 22:36> Chief Complaint: Low sodium levels. <Cheyanne Rojas PA-C - Last Filed: 08/29/21 22:36> Narrative: This is a 66-year-old male with chronic hyponatremia, oxygen-dependent COPD, anxiety, hypertension, and BPH who presented to the emergency department for evaluation of low sodium levels. He was admitted to the hospital last month for hyponatremia as well which was felt to be due to a combination of his underlying lung disease, excess fluid intake (especially with alcohol consumption) and bupropion. Bupropion was discontinued however was resumed 3 days after he was discharged due to ongoing anxiety. Sodium has been monitored by his primary care provider and on routine labs yesterday his sodium came back at 122 and he was told to come back to the ER. The patient himself has no specific complaints aside from anxiety, as apparently he was told to stop his bupropion and that seems to have worked the best for him over the years. He quit drinking alcohol daily after his last hospitalization though he will have a cocktail here and there. With further questioning he tells me that he drinks quite a bit of fluid each day, typically water, Gatorade, coffee, milk, and orange juice. I estimate he drinks between 90 and 100 oz of fluid a day from what his told me. He does not seem to eat much and gets majority of his calories through liquid as he reports being short of breath while eating, which has been an ongoing issue for him for a couple of years. He has no complaints at this time and denies confusion, nausea, vomiting, syncope, near syncope, edema, and change in urine output. <Cheyanne Rojas PA-C - Last Filed: 08/29/21 22:36> Review of Systems Review of Systems: 12 systems were reviewed. He has high anxiety and buspirone seems to work the best for him though he was told to stop that again a few days ago due to the low sodium. Previously he was on furosemide for lower extremity edema at though he has not been on that for quite some time and his edema is well controlled. He has lost about 20 lb over the years due to poor oral intake as he reports getting short of breath while eating. He denies dysphagia and concerns for aspiration. No cold or flu symptoms. He denies dysuria. Except as documented, all other systems were reviewed and are negative. <Cheyanne Rojas PA-C - Last Filed: 08/29/21 22:36> [facility] Past Medical History Medical History: Medical History (Updated 08/30/21 @ 16:29 by Elisha Martins MD) Anxiety Aspiration pneumonia (Unknown) Benign prostatic hyperplasia Chronic hyponatremia Chronic obstructive pulmonary disease Chronic respiratory failure with hypoxia, on home oxygen therapy Esophageal obstruction Hypertension Intention tremor Occlusion of left carotid artery Occlusion of left internal carotid artery Paroxysmal atrial fibrillation Peptic ulcer disease Pneumothorax on right (10/31/20) Transient ischemic attack (2013) <Cheyanne Rojas PA-C - Last Filed: 08/29/21 22:36> Surgical History Surgical History: Surgical History (Updated 08/29/21 @ 22:20 by Cheyanne Rojas PA-C) History of colonoscopy with polypectomy History of tonsillectomy <Cheyanne Rojas PA-C - Last Filed: 08/29/21 22:36> Family History Family History: Family History Father Carcinoma of colon Mother Hypertension Diabetes mellitus Mother No problems noted. <Cheyanne Rojas PA-C - Last Filed: 08/29/21 22:36> Social History Social History: Social History (Updated 08/29/21 @ 22:21 by Cheyanne Rojas PA-C) Social History: Surrogate decision maker: Fe Castillo, . Code status: full code. Smoking packs per day: 1 Smoking cigarettes per day: 20.0 Years smoked: 45 Smoking pack-years: 4
--- NOTE | 2021-08-29 18:41 | ADMGEN ---
This patient, Chano Dubose, was admitted to Medical Room 258-01. Patient/family oriented to hospital policies and general routines including ID bracelet, bed and alarms, visiting hours, pain management, procedures, bathroom and other care routines, personal items, smoking policy, room service/diet, and visiting hours. Information on how to activate the Rapid Response Team has been discussed. Patient/Family are encouraged to report perceived risks to care and to ask questions if they do not understand what they are told or what they should do.
[2021-08-29] MEDS: SODIUM CHLORIDE 0.9% IV 1,000 ML 100 ML IV CONT (18:50)
[2021-08-29] MEDS: IPRATROPIUM BR 0.02% INH SOLN 0.5 MG/2.5 ML VIAL INHALATION (20:54)
[2021-08-29] MEDS: ALBUTEROL SULFATE NEB 2.5 MG/3 ML INH 5 MG INHALATION (20:54)
[2021-08-29] MEDS: ALPRAZolam (*CRX) 0.25 MG TABLET PO (23:38)
[2021-08-30] VITALS (18 sets, daily range): BP systolic 128–141; BP diastolic 65–86; PULSE 60–89; RESP 14–21; TEMP 36.5–36.9; O2SAT 93–100
[2021-08-30 00:02] LABS: Anion Gap 4 mmol/L (8-16); Blood Urea Nitrogen 10 mg/dL (9-20); Calcium 8.3 mg/dL (8.4-10.2); Carbon Dioxide 31 mmol/L (22-30); Chloride 84 mmol/L (98-107); Estimated CRCL calculation 113 ml/min; Estimated Glomerular Filt Rate > 60; Glucose 93 mg/dL (65-110); Potassium 4.5 mmol/L (3.4-5.0); Sodium 119 mmol/L (137-145)
[2021-08-30] MEDS: busPIRone HCL 10 MG TABLET PO ×4 (00:31→16:50)
[2021-08-30] MEDS: IPRATROPIUM BR 0.02% INH SOLN 0.5 MG/2.5 ML VIAL INHALATION ×4 (02:45→20:43)
[2021-08-30] MEDS: ALBUTEROL SULFATE NEB 2.5 MG/3 ML INH 5 MG INHALATION ×4 (02:45→20:43)
[2021-08-30 03:14] LABS: Sodium 118 mmol/L (137-145)
[2021-08-30 03:55] LABS: Creatinine Urine 52.4 mg/dL
[2021-08-30 04:49] LABS: Sodium Urine Random 70 meq/L
[2021-08-30 05:33] LABS: Hematocrit 36.2 % (42.0-52.0); Hemoglobin 12.2 g/dL (14.0-18.0); Mean Corpuscular HGB Conc 33.7 g/dl (32-36); Mean Corpuscular Hemoglobin 33.7 pg (26-34); Platelet Count Result 248 k/mm3 (150-375); Red Blood Count 3.62 M/mm3 (4.6-6.20)
[2021-08-30 05:49] LABS: Anion Gap 5 mmol/L (8-16); Blood Urea Nitrogen 9 mg/dL (9-20); Calcium 8.2 mg/dL (8.4-10.2); Carbon Dioxide 30 mmol/L (22-30); Chloride 86 mmol/L (98-107); Estimated CRCL calculation 96 ml/min; Estimated Glomerular Filt Rate > 60; Glucose 80 mg/dL (65-110); Magnesium 1.9 mg/dL (1.6-2.3); Potassium 4.4 mmol/L (3.4-5.0); Sodium 121 mmol/L (137-145)
[2021-08-30 08:05] LABS: Sodium 122 mmol/L (137-145)
[2021-08-30] MEDS: TAMSULOSIN HCL 0.4 MG CAPSULE PO (08:36)
[2021-08-30] MEDS: METOPROLOL SUCCINATE EXT REL 50 MG TABCR PO (08:37)
[2021-08-30] MEDS: amLODIPine BESYLATE 5 MG TABLET PO (08:37)
[2021-08-30] MEDS: FINASTERIDE 5 MG TABLET PO (08:37)
--- NOTE | 2021-08-30 09:00 | PM.IMPN ---
Progress Note: A&P Assessment and Plan (1) Hyponatremia: Code(s): E87.1 - Hypo-osmolality and hyponatremia Status: Acute Assessment and Plan: Acute on chronic hyponatremia Most likely due to a combination of his lung disease, low solute intake, and adverse effects from bupropion. TSH, urine and serum osmolality, and urine sodium are pending for further evaluation. fluid restriction Trend Sodium Nephrology consulted for further recommendations IV fluids off at this timer Will await nephrology (2) Chronic respiratory failure with hypoxia, on home oxygen therapy: Code(s): J96.11 - Chronic respiratory failure with hypoxia; Z99.81 - Dependence on supplemental oxygen Status: Acute Assessment and Plan: Currently on 2LNC which is what he is on chronically Continue to trend SPO2 Titrate oxygen as indicated (3) Chronic obstructive pulmonary disease: Code(s): J44.9 - Chronic obstructive pulmonary disease, unspecified Status: Acute Assessment and Plan: Is currently at baseline Continue to trend symptoms Continue home medications (4) Anxiety: Code(s): F41.9 - Anxiety disorder, unspecified Status: Acute Assessment and Plan: Ongoing problem Continue home BuSpar and Xanax (5) Benign prostatic hyperplasia: Code(s): N40.0 - Benign prostatic hyperplasia without lower urinary tract symptoms Status: Acute Assessment and Plan: Continue home tamsulosin 0.4 mg p.o. daily Trend urine output P.r.n. bladder scan (6) Hypertension: Code(s): I10 - Essential (primary) hypertension Status: Acute Assessment and Plan: Current blood pressure 136/86 Continue home metoprolol 50 mg p.o. daily, amlodipine 5 mg p.o. daily Trend blood pressure Adjust therapy as indicated Subjective Date/time seen: 08/30/21 0900 Patient was sitting up in bed trying eat breakfast. Patient did state that he had some diarrhea about a week before coming to the hospital. He also stated that his doctor put him back on the Wellbutrin after we had stopped it his last visit. They have taken him off Wellbutrin and put him on what looks to be Remeron. They did say they were doing well with some of the instructions however the fluid restriction has been a little bit of a challenge but they have been working really hard to achieve that but with the weather changing am sure this is a challenge. She also stated the patient is drinking 1 cocktail sometimes. He denies any chest pain, shortness of breath, nausea, vomiting, diarrhea, constipation, weakness or fatigue. 08/29/21? 18:30 This is a 66-year-old male with chronic hyponatremia, oxygen-dependent COPD, anxiety, hypertension, and BPH who presented to the emergency department for evaluation of low sodium levels. He was admitted to the hospital last month for hyponatremia as well which was felt to be due to a combination of his underlying lung disease, excess fluid intake (especially with alcohol consumption) and bupropion. Bupropion was discontinued however was resumed 3 days after he was discharged due to ongoing anxiety. Sodium has been monitored by his primary care provider and on routine labs yesterday his sodium came back at 122 and he was told to come back to the ER. The patient himself has no specific complaints aside from anxiety, as apparently he was told to stop his bupropion and that seems to have worked the best for him over the years. He quit drinking alcohol daily after his last hospitalization though he will have a cocktail here and there. With further questioning he tells me that he drinks quite a bit of fluid each day, typically water, Gatorade, coffee, milk, and orange juice. I estimate he drinks between 90 and 100 oz of fluid a day from what his told me. He does not seem to eat much and gets majority of his calories through liqu
[2021-08-30] MEDS: FLUTICASONE/UMECLIDIN/VILANTER 100-62.5-25 MCG ELLIPTA 1 PUFF INHALATION (09:03)
--- NOTE | 2021-08-30 09:58 | PC.NURSE ---
Patient refused bladder scan x2, asked for me to come back in 30min to try again. Patient very anxious, had 100ml urine output at 830am.
[2021-08-30 11:21] LABS: Sodium 122 mmol/L (137-145)
[2021-08-30 15:16] LABS: Sodium 121 mmol/L (137-145)
--- NOTE | 2021-08-30 15:37 | PM.CNNEP ---
Assessment and Plan Assessment and plan (1) Hyponatremia: Code(s): E87.1 - Hypo-osmolality and hyponatremia Status: Acute Assessment and Plan: acute on chronic baseline sodium runs ~ 131 at best hospitalized about a month ago for the same issues felt to be secondary to a combination of COPD, bupropion, and excess fluid intake especially with the alcohol consumption suspect acute decline in sodium on this hospitalization related to the same issues evaluation to date (this hospitalization as well as last month) TSH okay coritsol and cosyntropin stimulation test negative SPEP and UPEP okay urine electrolytes non-prerenal agree with fluid restriction for now goal for rate of change in sodium is 4 - 6mmol/L in 24hrs (but not to exceed 8mmol/L) follow trend of repeat sodiums (2) COPD (chronic obstructive pulmonary disease): Qualifiers: COPD type: unspecified COPD Qualified Code(s): J44.9 - Chronic obstructive pulmonary disease, unspecified Code(s): J44.9 - Chronic obstructive pulmonary disease, unspecified Status: Chronic Assessment and Plan: appears compensated at this time continue home inhalers/medications (3) Hypertension: Code(s): I10 - Essential (primary) hypertension Status: Chronic Assessment and Plan: reasonable control at this time follow trend of hemodynamics Will continue to follow. History of Present Illness Reason for Consult Consult date: 08/30/21 Reason for consult: hyponatremia Chief Complaint Chief complaint: Hyponatremia History of Present Illness Narrative: The patient is a 66-year-old male with a past medical history as outlined below who presented to [facility] Emergency room at the behest of his primary care physician's office for further evaluation of hyponatremia. The patient was just recently admitted to [facility] about a month ago for hyponatremia as well. At that time, it was felt that his hyponatremia was probably a manifestation of his chronic lung disease, excess fluid intake with particular concern for alcohol consumption, and SSRI therapy (bupropion). With this recent hospitalization, he followed up with his primary care physician and routine labs done the day prior to admission demonstrated sodium level at 1:20 a.m. to millimoles per L. He was instructed by his primary care physician's office to go to the ER for further evaluation. Workup and evaluation emergency room demonstrated the patient to be hemodynamically stable and in no apparent distress. Repeat labs confirmed his hyponatremia as well. On further questioning, he reports that following his hospital discharge a month ago, he was resumed on his [place] on due to his ongoing anxiety issues. He had states that he has not been drinking as much alcohol as he was previously but does state that he has been drinking fluids quite a bit in general. Furthermore, instead of eating in general, he tends to gets most of his nutritional intake from beverages. He otherwise did not appear to be in any acute distress and without any type of neurological sequelae either. Given his complex medical history as well as the a for mentioned laboratory abnormalities, he was admitted the hospital for further evaluation and therapy. Renal consultation was requested due to his acute hyponatremia. The patient, as already mentioned, was just recently hospitalized about a month ago for this similar issue. From review of his records, it would seem that just fluids traction alone as well as decreasing his buproprion resulted in improvement in his overall sodium levels prior to discharge. He had a fairly extensive workup and evaluation with regard to thyroid function, cortisol level, SPEP, UPEP...etc. his baseline sodium usually runs around 131 millimoles per L at its best. He otherwise has no other acute complaints voiced at this time Currently, at the t
[2021-08-30 17:11] LABS: Sodium 121 mmol/L (137-145)
[2021-08-30 21:18] LABS: Sodium 120 mmol/L (137-145)
[2021-08-30] MEDS: ALPRAZolam (*CRX) 0.25 MG TABLET PO (22:15)
[2021-08-30] MEDS: hydrOXYzine HCL 25 MG TABLET 50 MG PO (22:15)
--- NOTE | 2021-08-30 23:06 | PCRCNOTE ---
During 1999 breathing Treatment. Patient and family stated they did not want patient to be woken up for 0200 Treatment. RT informed the Patient if they wake up and change their mind, then to call and one can be given.
[2021-08-31] VITALS (15 sets, daily range): BP systolic 104–156; BP diastolic 72–92; PULSE 68–90; RESP 16–22; TEMP 36.3–36.8; O2SAT 94–100
[2021-08-31 01:25] LABS: Sodium 122 mmol/L (137-145)
--- NOTE | 2021-08-31 05:06 | PC.NURSE ---
Pt refused 2000 bladder scan, 0000 bladder scan 296ml, 0400 bladder scan 330ml. 0400 bladder scan was post BM/void.
[2021-08-31 05:42] LABS: Basophils Percent Auto 0.4 % (0.2-1.2); Eosinophils Absolute Auto 0.1 K/mm3 (0-0.3); Eosinophils Percent Auto 1.5 % (0-4.4); Hematocrit 35.5 % (42.0-52.0); Hemoglobin 11.7 g/dL (14.0-18.0); Immature Granulocyte Absolute 0.04 K/mm3 (0.00-0.031); Immature Granulocyte Percent A 0.7 % (0-0.5); Lymphocytes Absolute Auto 0.66 K/mm3 (0.9-3.2); Lymphocytes Percent Auto 12.2 % (18.3-44.2); Mean Corpuscular Hemoglobin 33.4 pg (26-34); Mean Corpuscular Volume 101.4 fl (80-100); Mean Platelet Volume 7.9 fl (7.4-10.4); Monocytes Absolute Auto 0.8 K/mm3 (0.1-0.6); Monocytes Percent Auto 15.4 % (2.6-8.5); Neutrophils Absolute Auto 3.8 K/mm3 (1.3-6.7); Neutrophils Percent Auto 69.8 % (45.5-73.1); Platelet Count Result 229 k/mm3 (150-375); Red Cell Distribution Width 13.2 % (11.5-14.5); White Blood Count 5.4 K/mm3 (4.5-10.0)
[2021-08-31 05:56] LABS: Alanine Aminotransferase 13 U/L (6-50); Albumin Level 2.8 g/dL (3.5-5.1); Alkaline Phosphatase 71 U/L (38-126); Anion Gap 4 mmol/L (8-16); Aspartate Amino Transferase 27 U/L (17-59); Bilirubin,Total 0.5 mg/dL (0.2-1.3); Blood Urea Nitrogen 12 mg/dL (9-20); Calcium 8.1 mg/dL (8.4-10.2); Carbon Dioxide 32 mmol/L (22-30); Chloride 89 mmol/L (98-107); Estimated CRCL calculation 96 ml/min; Estimated Glomerular Filt Rate > 60; Glucose 94 mg/dL (65-110); Magnesium 1.9 mg/dL (1.6-2.3); Potassium 3.9 mmol/L (3.4-5.0); Sodium 125 mmol/L (137-145)
[2021-08-31] MEDS: IPRATROPIUM BR 0.02% INH SOLN 0.5 MG/2.5 ML VIAL INHALATION ×3 (07:42→19:44)
[2021-08-31] MEDS: ALBUTEROL SULFATE NEB 2.5 MG/3 ML INH 5 MG INHALATION ×3 (07:42→19:44)
[2021-08-31] MEDS: FLUTICASONE/UMECLIDIN/VILANTER 100-62.5-25 MCG ELLIPTA 1 PUFF INHALATION (07:42)
[2021-08-31] MEDS: TAMSULOSIN HCL 0.4 MG CAPSULE PO (08:21)
[2021-08-31] MEDS: amLODIPine BESYLATE 5 MG TABLET PO (08:21)
[2021-08-31] MEDS: FINASTERIDE 5 MG TABLET PO (08:21)
[2021-08-31] MEDS: busPIRone HCL 10 MG TABLET PO ×3 (08:22→16:45)
[2021-08-31] MEDS: METOPROLOL SUCCINATE EXT REL 50 MG TABCR PO (08:22)
--- NOTE | 2021-08-31 10:00 | P.PNIM_ITS ---
Progress Note: A&P Assessment and Plan (1) Hyponatremia: Code(s): E87.1 - Hypo-osmolality and hyponatremia Status: Acute Assessment and Plan: * Acute on chronic hyponatremia * Trending up is currently 125 * Most likely due to a combination of his lung disease, low solute intake, and adverse effects from bupropion. * TSH 1.710, urine and serum osmolality pending, and urine sodium 70 * fluid restriction * Trend Sodium * Nephrology consulted for further recommendations * IV fluids off at this time * Will await nephrology (2) Chronic respiratory failure with hypoxia, on home oxygen therapy: Code(s): J96.11 - Chronic respiratory failure with hypoxia; Z99.81 - Dependence on supplemental oxygen Status: Acute Assessment and Plan: * Currently on 2LNC which is what he is on chronically * Continue to trend SPO2 * Titrate oxygen as indicated (3) Chronic obstructive pulmonary disease: Code(s): J44.9 - Chronic obstructive pulmonary disease, unspecified Status: Acute Assessment and Plan: * Is currently at baseline * Continue to trend symptoms * Continue home medications (4) Anxiety: Code(s): F41.9 - Anxiety disorder, unspecified Status: Acute Assessment and Plan: * Ongoing problem * Continue home BuSpar and Xanax (5) Benign prostatic hyperplasia: Code(s): N40.0 - Benign prostatic hyperplasia without lower urinary tract symptoms Status: Acute Assessment and Plan: * Continue home tamsulosin 0.4 mg p.o. daily * Trend urine output * P.r.n. bladder scan (6) Hypertension: Code(s): I10 - Essential (primary) hypertension Status: Chronic Assessment and Plan: * Current blood pressure 131/78 * Continue home metoprolol 50 mg p.o. daily, amlodipine 5 mg p.o. daily * Trend blood pressure * Adjust therapy as indicated Time Spent With Patient Time with patient: Greater than 35 minutes Subjective Date/time seen: 08/31/21 1000 Interval history: 08/31/21 1000 Patient stated that he is doing ok. His sodium is 125 today. He denies any chest pain, shortness of breath, nausea, vomiting, diarrhea, constipation, or muscle cramping. He just seemed very dazed but ok. 08/30/21? 0900 Patient was sitting up in bed trying eat breakfast.? Patient did state that he had some diarrhea about a week before coming to the hospital.? He also stated that his doctor put him back on the Wellbutrin after we had stopped it his last visit.? They have taken him off Wellbutrin and put him on what looks to be Remeron.? They did say they were doing well with some of the instructions however the fluid restriction has been a little bit of a challenge but they have been working really hard to achieve that but with the weather changing am sure this is a challenge.? She also stated the patient is drinking 1 cocktail sometimes.? He denies any chest pain, shortness of breath, nausea, vomiting, diarrhea, constipation, weakness or fatigue. 08/29/21? 18:30 This is a 66-year-old male with chronic hyponatremia, oxygen-dependent COPD, anxiety, hypertension, and BPH who presented to the emergency department for evaluation of low sodium levels. He was admitted to the hospital last month for hyponatremia as well which was felt to be due to a combination of his underlying lung disease, excess fluid intake (especially with alcohol consumption) and bupropion. B
--- NOTE | 2021-08-31 10:00 | PM.IMPN ---
Progress Note: A&P Assessment and Plan (1) Hyponatremia: Code(s): E87.1 - Hypo-osmolality and hyponatremia Status: Acute Assessment and Plan: Acute on chronic hyponatremia Trending up is currently 125 Most likely due to a combination of his lung disease, low solute intake, and adverse effects from bupropion. TSH 1.710, urine and serum osmolality pending, and urine sodium 70 fluid restriction Trend Sodium Nephrology consulted for further recommendations IV fluids off at this time Will await nephrology (2) Chronic respiratory failure with hypoxia, on home oxygen therapy: Code(s): J96.11 - Chronic respiratory failure with hypoxia; Z99.81 - Dependence on supplemental oxygen Status: Acute Assessment and Plan: Currently on 2LNC which is what he is on chronically Continue to trend SPO2 Titrate oxygen as indicated (3) Chronic obstructive pulmonary disease: Code(s): J44.9 - Chronic obstructive pulmonary disease, unspecified Status: Acute Assessment and Plan: Is currently at baseline Continue to trend symptoms Continue home medications (4) Anxiety: Code(s): F41.9 - Anxiety disorder, unspecified Status: Acute Assessment and Plan: Ongoing problem Continue home BuSpar and Xanax (5) Benign prostatic hyperplasia: Code(s): N40.0 - Benign prostatic hyperplasia without lower urinary tract symptoms Status: Acute Assessment and Plan: Continue home tamsulosin 0.4 mg p.o. daily Trend urine output P.r.n. bladder scan (6) Hypertension: Code(s): I10 - Essential (primary) hypertension Status: Chronic Assessment and Plan: Current blood pressure 131/78 Continue home metoprolol 50 mg p.o. daily, amlodipine 5 mg p.o. daily Trend blood pressure Adjust therapy as indicated Time Spent With Patient Time with patient: Greater than 35 minutes Subjective Date/time seen: 08/31/21 1000 Interval history: 08/31/21 1000 Patient stated that he is doing ok. His sodium is 125 today. He denies any chest pain, shortness of breath, nausea, vomiting, diarrhea, constipation, or muscle cramping. He just seemed very dazed but ok. 08/30/21? 0900 Patient was sitting up in bed trying eat breakfast.? Patient did state that he had some diarrhea about a week before coming to the hospital.? He also stated that his doctor put him back on the Wellbutrin after we had stopped it his last visit.? They have taken him off Wellbutrin and put him on what looks to be Remeron.? They did say they were doing well with some of the instructions however the fluid restriction has been a little bit of a challenge but they have been working really hard to achieve that but with the weather changing am sure this is a challenge.? She also stated the patient is drinking 1 cocktail sometimes.? He denies any chest pain, shortness of breath, nausea, vomiting, diarrhea, constipation, weakness or fatigue. 08/29/21? 18:30 This is a 66-year-old male with chronic hyponatremia, oxygen-dependent COPD, anxiety, hypertension, and BPH who presented to the emergency department for evaluation of low sodium levels. He was admitted to the hospital last month for hyponatremia as well which was felt to be due to a combination of his underlying lung disease, excess fluid intake (especially with alcohol consumption) and bupropion. Bupropion was discontinued however was resumed 3 days after he was discharged due to ongoing anxiety. Sodium has been monitored by his primary care provider and on routine labs yesterday his sodium came back at 122 and he was told to come back to the ER. The patient himself has no specific complaints aside from anxiety, as apparently he was told to stop his bupropion and that seems to have worked the best for him over the years. He quit drinking alcohol daily after his last hospitalization [facility]
--- NOTE | 2021-08-31 10:02 | P.PNNP_ITS ---
Progress Note: A&P Assessment and Plan (1) Hyponatremia: Code(s): E87.1 - Hypo-osmolality and hyponatremia Status: Acute Assessment and Plan: * acute on chronic * slow improvement noted * baseline sodium runs ~ 131 at best * hospitalized about a month ago for the same issues * felt to be secondary to a combination of COPD, bupropion, and excess fluid intake (particularly alcohol) * suspect acute decline in sodium on this hospitalization related to the same issues (although more fluid intake in general as opposed to alcohol this time around) * evaluation to date (this hospitalization as well as last month) * TSH okay * coritsol and cosyntropin stimulation test negative * SPEP and UPEP okay * urine electrolytes non-prerenal * continue with fluid restriction for now (and will likely need to continue on discharge) * goal for rate of change in sodium is 4 - 6mmol/L in 24hrs (but not to exceed 8mmol/L) * follow trend of repeat sodiums (2) COPD (chronic obstructive pulmonary disease): Qualifiers: COPD type: unspecified COPD Qualified Code(s): J44.9 - Chronic obstructive pulmonary disease, unspecified Code(s): J44.9 - Chronic obstructive pulmonary disease, unspecified Status: Chronic Assessment and Plan: * appears compensated at this time * continue home inhalers/medications (3) Hypertension: Code(s): I10 - Essential (primary) hypertension Status: Chronic Assessment and Plan: * reasonable control at this time * follow trend of hemodynamics Discussed case with outside of room per patient request. Will continue to follow. Subjective Date/time seen: 08/31/21 10:02 Remains quite anxious and requested that I talk with his outside the room (rather than with him); sodium slowly improving just with fluid restriction Exam Narrative: General: WD/WN male laying in bed and quite anxious Heart: normal S1 and S2; no rub Lungs: coarse breath sounds Abdomen: soft, nontender, nondistended, positive bowel sounds Extremities: no cyanosis or clubbing; no edema Skin: warm and dry Objective Data Vital Signs Vital Signs: Vital Signs Temp Pulse Resp BP Pulse Ox O2 Del Method O2 Flow Rate 08/31/21 08:35 36.3 C L 80 22 H 156/92 H 99 08/31/21 08:22 84 08/31/21 08:00 78 20 08/31/21 07:53 94 2.5 08/31/21 07:49 76 20 08/31/21 07:38 100 Nasal Cannula 2.5 08/31/21 04:00 36.3 C L 73 21 H 131/78 100 08/31/21 00:30 36.3 C L 72 20 133/77 98 08/30/21 20:30 36.7 C 60 21 H 141/73 H 100 08/30/21 20:50 80 18 08/30/21 20:42 76 20 08/30/21 20:46 96 2.5 08/30/21 16:00 36.8 C 80 15 130/84 97 08/30/21 15:30 82 20 08/30/21 15:20 77 20 08/30/21 14:00 36.8 C 80 15 130/84 97 08/30/21 12:00 36.5 C 86 16 128/84 98 Intake/Output Intake/Output: Intake & Output 08/28/21 08/29/21 08/30/21 08/31/21 23:59 23:59 23:59 23:59 Intake Total 50 1780 400 Output Total 700 500 Balance 50 1080 -100 Meds/Results Medications: Active Medications Generi
--- NOTE | 2021-08-31 10:02 | PM.PNNEP ---
Progress Note: A&P Assessment and Plan (1) Hyponatremia: Code(s): E87.1 - Hypo-osmolality and hyponatremia Status: Acute Assessment and Plan: acute on chronic slow improvement noted baseline sodium runs ~ 131 at best hospitalized about a month ago for the same issues felt to be secondary to a combination of COPD, bupropion, and excess fluid intake (particularly alcohol) suspect acute decline in sodium on this hospitalization related to the same issues (although more fluid intake in general as opposed to alcohol this time around) evaluation to date (this hospitalization as well as last month) TSH okay coritsol and cosyntropin stimulation test negative SPEP and UPEP okay urine electrolytes non-prerenal continue with fluid restriction for now (and will likely need to continue on discharge) goal for rate of change in sodium is 4 - 6mmol/L in 24hrs (but not to exceed 8mmol/L) follow trend of repeat sodiums (2) COPD (chronic obstructive pulmonary disease): Qualifiers: COPD type: unspecified COPD Qualified Code(s): J44.9 - Chronic obstructive pulmonary disease, unspecified Code(s): J44.9 - Chronic obstructive pulmonary disease, unspecified Status: Chronic Assessment and Plan: appears compensated at this time continue home inhalers/medications (3) Hypertension: Code(s): I10 - Essential (primary) hypertension Status: Chronic Assessment and Plan: reasonable control at this time follow trend of hemodynamics Discussed case with outside of room per patient request. Will continue to follow. Subjective Date/time seen: 08/31/21 10:02 Remains quite anxious and requested that I talk with his outside the room (rather than with him); sodium slowly improving just with fluid restriction Exam Narrative: General: WD/WN male laying in bed and quite anxious Heart: normal S1 and S2; no rub Lungs: coarse breath sounds Abdomen: soft, nontender, nondistended, positive bowel sounds Extremities: no cyanosis or clubbing; no edema Skin: warm and dry Objective Data Vital Signs Vital Signs: Vital Signs Temp Pulse Resp BP Pulse Ox O2 Del Method O2 Flow Rate 08/31/21 08:35 36.3 C L 80 22 H 156/92 H 99 08/31/21 08:22 84 08/31/21 08:00 78 20 08/31/21 07:53 94 2.5 08/31/21 07:49 76 20 05/27/22 07:38 100 Nasal Cannula 2.5 08/31/21 04:00 36.3 C L 73 21 H 131/78 100 08/31/21 00:30 36.3 C L 72 20 133/77 98 08/30/21 20:30 36.7 C 60 21 H 141/73 H 100 08/30/21 20:50 80 18 08/30/21 20:42 76 20 08/30/21 20:46 96 2.5 08/30/21 16:00 36.8 C 80 15 130/84 97 08/30/21 15:30 82 20 08/30/21 15:20 77 20 08/30/21 14:00 36.8 C 80 15 130/84 97 08/30/21 12:00 36.5 C 86 16 128/84 98 Intake/Output Intake/Output: Intake & Output 08/28/21 08/29/21 08/30/21 08/31/21 23:59 23:59 23:59 23:59 Intake Total 50 1780 400 Output Total 700 500 Balance 50 1080 -100 Meds/Results Medications: Active Medications Generic Name Dose Route Start Last Admin Trade Name Freq PRN Reason Stop Dose Admin Acetaminophen 650 mg 08/29/21 16:46 Acetaminophen 325 Mg Tablet PO Q4H PRN Mild Pain (1-3) or Fever Albuterol 5 mg 08/29/21 20:00 08/31/21 07:42 Albuterol Sulfate Neb 2.5 Mg/3 Ml Inh INHALATION 5 mg Q6HRT MARILU Administration Albuterol 2 puff 08/29/21 22:33 Albuterol Sulfate (*Sp) Aerosol 1 Puff INHALATION Q4HRT PRN shortness of breath or wheezing Alprazolam 0.25 mg 08/29/21 22:33 08/30/21 22:15 Alprazolam (*Crx) 0.25 Mg Tablet PO 0.25 mg BID PRN Administration anxiety Amlodipine Besylate 5 mg 08/30/21 09:00 08/31/21 08:21 Amlodipine Besylate 5 Mg Tablet PO 5 mg DAILY MARILU Administration Buspirone HCl 10 mg 08/30/21 00:10 08/31/21 08:22 Buspiro
[2021-08-31] MEDS: ALPRAZolam (*CRX) 0.25 MG TABLET PO (20:13)
[2021-08-31] MEDS: hydrOXYzine HCL 25 MG TABLET 50 MG PO (22:25)
[2021-09-01 01:13] VITALS: O2SAT 96
[2021-09-01 05:33] VITALS: BP 124/67; PULSE 80; RESP 16; TEMP 36.4; O2SAT 91
[2021-09-01 05:39] LABS: Basophils Percent Auto 0.6 % (0.2-1.2); Eosinophils Absolute Auto 0.1 K/mm3 (0-0.3); Eosinophils Percent Auto 1.3 % (0-4.4); Hematocrit 37.5 % (42.0-52.0); Hemoglobin 11.8 g/dL (14.0-18.0); Immature Granulocyte Absolute 0.07 K/mm3 (0.00-0.031); Lymphocytes Absolute Auto 1.03 K/mm3 (0.9-3.2); Mean Corpuscular HGB Conc 31.5 g/dl (32-36); Mean Corpuscular Hemoglobin 32.8 pg (26-34); Mean Corpuscular Volume 104.2 fl (80-100); Mean Platelet Volume 7.8 fl (7.4-10.4); Monocytes Absolute Auto 1.1 K/mm3 (0.1-0.6); Monocytes Percent Auto 16.1 % (2.6-8.5); Neutrophils Absolute Auto 4.5 K/mm3 (1.3-6.7); Platelet Count Result 243 k/mm3 (150-375); Red Cell Distribution Width 13.2 % (11.5-14.5); White Blood Count 6.9 K/mm3 (4.5-10.0)
[2021-09-01 05:49] LABS: Alanine Aminotransferase 14 U/L (6-50); Albumin Level 2.7 g/dL (3.5-5.1); Alkaline Phosphatase 75 U/L (38-126); Anion Gap 0 mmol/L (8-16); Aspartate Amino Transferase 28 U/L (17-59); Bilirubin,Total 0.4 mg/dL (0.2-1.3); Blood Urea Nitrogen 12 mg/dL (9-20); Calcium 8.1 mg/dL (8.4-10.2); Carbon Dioxide 36 mmol/L (22-30); Chloride 91 mmol/L (98-107); Estimated CRCL calculation 95 ml/min; Estimated Glomerular Filt Rate > 60; Glucose 76 mg/dL (65-110); Magnesium 1.9 mg/dL (1.6-2.3); Potassium 3.9 mmol/L (3.4-5.0); Sodium 127 mmol/L (137-145)
[2021-09-01] MEDS: IPRATROPIUM BR 0.02% INH SOLN 0.5 MG/2.5 ML VIAL INHALATION (07:50)
[2021-09-01] MEDS: ALBUTEROL SULFATE NEB 2.5 MG/3 ML INH 5 MG INHALATION (07:50)
[2021-09-01 07:51] VITALS: PULSE 77; RESP 20
[2021-09-01] MEDS: FLUTICASONE/UMECLIDIN/VILANTER 100-62.5-25 MCG ELLIPTA 1 PUFF INHALATION (07:51)
[2021-09-01 07:54] VITALS: O2SAT 95
[2021-09-01 08:01] VITALS: PULSE 80; RESP 20
[2021-09-01] MEDS: METOPROLOL SUCCINATE EXT REL 50 MG TABCR PO (08:26)
[2021-09-01] MEDS: TAMSULOSIN HCL 0.4 MG CAPSULE PO (08:26)
[2021-09-01] MEDS: amLODIPine BESYLATE 5 MG TABLET PO (08:27)
[2021-09-01] MEDS: busPIRone HCL 10 MG TABLET PO (08:27)
[2021-09-01] MEDS: FINASTERIDE 5 MG TABLET PO (08:27)
--- NOTE | 2021-09-01 09:29 | PC.NURSE ---
Bladder scan done showed 95ml of urine in bladder.
[2021-09-01 10:47] VITALS: BP 132/73; PULSE 75; RESP 20; TEMP 36.2; O2SAT 98
--- NOTE | 2021-09-01 11:00 | PM.DS ---
DS: Admitting Diagnosis Discharge Date 09/01/21 1100 Admitting Diagnosis Hyponatremia DS: Discharge Diagnosis Discharge Diagnosis (1) Hyponatremia: Code(s): E87.1 - Hypo-osmolality and hyponatremia Status: Acute Assessment and Plan: Acute on chronic hyponatremia Trending up is currently 125 Most likely due to a combination of his lung disease, low solute intake, and adverse effects from bupropion. TSH 1.710, urine and serum osmolality pending, and urine sodium 70 fluid restriction Trend Sodium Nephrology consulted for further recommendations IV fluids off at this time Will await nephrology (2) Chronic respiratory failure with hypoxia, on home oxygen therapy: Code(s): J96.11 - Chronic respiratory failure with hypoxia; Z99.81 - Dependence on supplemental oxygen Status: Acute Assessment and Plan: Currently on 2LNC which is what he is on chronically Continue to trend SPO2 Titrate oxygen as indicated (3) Chronic obstructive pulmonary disease: Code(s): J44.9 - Chronic obstructive pulmonary disease, unspecified Status: Acute Assessment and Plan: Is currently at baseline Continue to trend symptoms Continue home medications (4) Anxiety: Code(s): F41.9 - Anxiety disorder, unspecified Status: Acute Assessment and Plan: Ongoing problem Continue home BuSpar and Xanax (5) Benign prostatic hyperplasia: Code(s): N40.0 - Benign prostatic hyperplasia without lower urinary tract symptoms Status: Acute Assessment and Plan: Continue home tamsulosin 0.4 mg p.o. daily Trend urine output P.r.n. bladder scan (6) Hypertension: Code(s): I10 - Essential (primary) hypertension Status: Chronic Assessment and Plan: Current blood pressure 131/78 Continue home metoprolol 50 mg p.o. daily, amlodipine 5 mg p.o. daily Trend blood pressure Adjust therapy as indicated DS: Summary Hospital Course Hospital Course: Patient is 66-year-old male with a past medical history of BPH, COPD, chronic respiratory failure with oxygen at home, hypertension who presented to the ED from the doctor's office with abnormal labs and a sodium of 122. Patient was started on IV fluids and Nephrology was consulted. Patient stated that he had currently been restarted back on his Wellbutrin. Wellbutrin has been stopped. Patient was placed on a fluid restriction as well. Sodium has continued to trend upward and is currently at 127 today. Nephrology recommends patient be able to go home with follow-up labs in 1 week. Blood pressures have been stable since admission as well. Patient was also noted to have some urinary retention however retention has been manageable. Patient has had no issues with breathing. Education has been provided about fluid restrictions. Patient denies any chest pain, shortness of breath, nausea, vomiting, diarrhea, constipation, weakness or fatigue. Status at Discharge Functional status at discharge: independent ambulation Overall status at discharge: patient is progressing back to baseline Time Spent with Patient Time attestation: Total time spent providing and/or coordinating discharge services: 28 minutes Time spent: Less than 30 minutes Specific discharge activities: Diagnostic testing, chart review, developing a treatment plan, education, care coordination documentation, physical exam, result review Exam Const: General: cooperative, healthy appearing, no acute distress, well developed, alert and awake Nutritional Appearance: well nourished Orientation/consciousness: patient oriented x3 Limitations: no limitations HENMT: Head: normal to inspection Ears: hearing grossly normal bilaterally General nose exam: Normal external nose present Mouth: Yes Normal oral and palatal mucosa present, Yes lip normal and Yes tongue normal Teeth and gingiva: abnormal
--- NOTE | 2021-09-01 11:00 | P.DS_ITS ---
DS: Admitting Diagnosis Discharge Date 09/01/21 1100 Admitting Diagnosis Hyponatremia DS: Discharge Diagnosis Discharge Diagnosis (1) Hyponatremia: Code(s): E87.1 - Hypo-osmolality and hyponatremia Status: Acute Assessment and Plan: * Acute on chronic hyponatremia * Trending up is currently 125 * Most likely due to a combination of his lung disease, low solute intake, and adverse effects from bupropion. * TSH 1.710, urine and serum osmolality pending, and urine sodium 70 * fluid restriction * Trend Sodium * Nephrology consulted for further recommendations * IV fluids off at this time * Will await nephrology (2) Chronic respiratory failure with hypoxia, on home oxygen therapy: Code(s): J96.11 - Chronic respiratory failure with hypoxia; Z99.81 - Dependence on supplemental oxygen Status: Acute Assessment and Plan: * Currently on 2LNC which is what he is on chronically * Continue to trend SPO2 * Titrate oxygen as indicated (3) Chronic obstructive pulmonary disease: Code(s): J44.9 - Chronic obstructive pulmonary disease, unspecified Status: Acute Assessment and Plan: * Is currently at baseline * Continue to trend symptoms * Continue home medications (4) Anxiety: Code(s): F41.9 - Anxiety disorder, unspecified Status: Acute Assessment and Plan: * Ongoing problem * Continue home BuSpar and Xanax (5) Benign prostatic hyperplasia: Code(s): N40.0 - Benign prostatic hyperplasia without lower urinary tract symptoms Status: Acute Assessment and Plan: * Continue home tamsulosin 0.4 mg p.o. daily * Trend urine output * P.r.n. bladder scan (6) Hypertension: Code(s): I10 - Essential (primary) hypertension Status: Chronic Assessment and Plan: * Current blood pressure 131/78 * Continue home metoprolol 50 mg p.o. daily, amlodipine 5 mg p.o. daily * Trend blood pressure * Adjust therapy as indicated DS: Summary Hospital Course Hospital Course: Patient is 66-year-old male with a past medical history of BPH, COPD, chronic respiratory failure with oxygen at home, hypertension who presented to the ED from the doctor's office with abnormal labs and a sodium of 122. Patient was started on IV fluids and Nephrology was consulted. Patient stated that he had currently been restarted back on his Wellbutrin. Wellbutrin has been stopped. Patient was placed on a fluid restriction as well. Sodium has continued to trend upward and is currently at 127 today. Nephrology recommends patient be able to go home with follow-up labs in 1 week. Blood pressures have been stable since admission as well. Patient was also noted to have some urinary retention however retention has been manageable. Patient has had no issues with breathing. Education has been provided about fluid restrictions. Patient denies any chest pain, shortness of breath, nausea, vomiting, diarrhea, constipation, weakness or fatigue. Status at Discharge Functional status at discharge: independent ambulation Overall status at discharge: patient is progressing back to baseline Time Spent with Patient Time attestation: Total time spent providing and/or coordinating discharge services: 28 minutes Time spent: Less than 30 minutes Specific discharge activities: Diagnostic testing, chart review, developing a treatment plan, education, care coordination documentation, physical exam,
[2021-09-02 04:31] LABS: Osmolality, Urine 397 mOsm/kg (50-1200)
== END 2021-09-01 12:08 | disposition home or self-care (01) | DRG 641 ==
LOC: ANHED 16:45 → ANH2MED 17:21
PROVIDERS: Physician Assistant; Admitting Provider Family Medicine; Emergency Provider Family Medicine; PCP Family Medicine; Visit Provider Nurse Practitioner
DX: E87.1 Hypo-osmolality and hyponatremia (principal); J96.11 Chronic respiratory failure with hypoxia; J44.9 Chronic obstructive pulmonary disease, unspecified; F41.9 Anxiety disorder, unspecified; N40.0 Benign prostatic hyperplasia without lower urinary tract symptoms; I10 Essential (primary) hypertension; Z99.81 Dependence on supplemental oxygen; Z79.899 Other long term (current) drug therapy; I48.0 Paroxysmal atrial fibrillation; Z86.73 Personal history of transient ischemic attack (TIA), and cerebral infarction without residual deficits; I65.22 Occlusion and stenosis of left carotid artery; Z80.0 Family history of malignant neoplasm of digestive organs; Z87.891 Personal history of nicotine dependence; Z79.51 Long term (current) use of inhaled steroids
CPT/HCPCS: 36415; 71046; 80048; 80053; 81001; 82570; 83735; 83930; 83935; 84295; 84300; 84443; 85025; 85027; 87086; 87088; 93005; 94640; 96361; 96365; 99285; A9270; G0378; J0696; J7030